=== PATIENT | female | born 1945 | race Caucasian/White ===

== ENCOUNTER → 2016-10-14 | Outpatient (CLI) | payer MEDICARE, OTHER ==
[2016-07-23 18:30] VITALS: BP 183/88
[~2016-10-14] MED LIST: CELE100C PO; CITA10TA8 PO; LEVO25TA2 PO; LISI2.5T PO; NITR100C62 PO; ONDA4TAB10 SL; OXYC-323 PO; PANT20TA2 PO; PROM25SU32 RC
--- NOTE | 2016-10-14 13:19 | RAD ---
Bone Densitometry History: Postmenopausal screening, recent right shoulder fracture, breast cancer treated with chemotherapy, white female. Comparison: 12/20/2013. Findings: Bone Densitometry was performed with dual photon absorption of the lumbar spine from L1 through L3 (L4 body density was not included secondary to spinal fusion hardware) and proximal right femur. Lumbar Spine: Bone density is 1.017 g/cm2 for L1-L4. T-score is -1.3. Bone mineral density demonstrates 18.4% decrease from previous study. Right Femur: Bone density is 0.734 g/cm2. T-score is -2.2. Bone mineral density of the right femur demonstrates 7.3% decrease from previous study. Impression: Osteopenia of the lumbar spine and proximal right femur. World Health Organization definition of osteoporosis and osteopenia for women: normal equals T score at or above -1.0 standard deviations; osteopenia equals T score between -1.0 and -2.5 standard deviations; osteoporosis equals T score at or below -2.5 standard deviations.
== END | disposition home or self-care (01) ==
LOC: DXRAD 12:45
PROVIDERS: ATTEND Physician Assistant Medical
DX: M85.88 Other specified disorders of bone density and structure, other site (principal); C50.919 Malignant neoplasm of unspecified site of unspecified female breast; M81.0 Age-related osteoporosis without current pathological fracture; Z92.21 Personal history of antineoplastic chemotherapy; T14.8 Other injury of unspecified body region
CPT/HCPCS: 77080

== ENCOUNTER → 2016-10-20 | Outpatient (CLI) | payer MEDICARE, OTHER ==
[2016-07-23 18:30] VITALS: BP 183/88
--- NOTE | 2016-10-20 16:24 | RAD ---
Pelvis with right hip, 2 views, 10/20/2016: History: Hip joint pain Comparison is made to a study from 02/18/2016. The bony structures are demineralized. Surgical pins have been placed at the left hip. There are fixation rods and screws in the spine at the lumbosacral junction with postlaminectomy change. No acute fracture or dislocation is identified. There is mild narrowing at both hip joints with mild marginal spurring, worse on the left. IMPRESSION: 1. Postsurgical change in the lumbar spine and at the left hip. 2. Mild degenerative change at both hips, left greater than right. 3. No acute bony abnormality is detected.
== END | disposition home or self-care (01) ==
LOC: DXRADRC 15:28
PROVIDERS: ATTEND Physician Assistant Medical
DX: M25.551 Pain in right hip (principal)
CPT/HCPCS: 73501

== ENCOUNTER → 2017-03-17 | Outpatient (CLI) | payer MEDICARE, OTHER ==
[2016-07-23 18:30] VITALS: BP 183/88
[~2017-03-17] MED LIST changes: -LEVO25TA2 PO; +LEVO25TA55 PO; -PANT20TA2 PO; +PANT20TA58 PO
--- NOTE | 2017-03-17 09:42 | RAD ---
Left foot, 3 views, 03/17/2017: History: Foot pain, fall, swelling There is extensive patchy bony demineralization. There is severe degenerative change at the talonavicular articulation. There are moderate degenerative changes at other scattered joints. There are mild deformities of the distal third through fifth metatarsals, probably due to old trauma. A visible fracture line with sclerotic margins at the fifth metatarsal head suggests a incompletely healed fracture. A nondisplaced recent fractures less likely. No definite acute fracture or dislocation is seen. IMPRESSION: 1. Severe bony demineralization. 2. Moderate scattered degenerative changes. 3. A nondisplaced fracture of the fifth metatarsal head is probably old. Clinical correlation with the site of the patient's current pain is suggested.
== END | disposition home or self-care (01) ==
LOC: DXRADRC 09:21
PROVIDERS: ATTEND Physician Assistant Medical
DX: S92.355A Nondisplaced fracture of fifth metatarsal bone, left foot, initial encounter for closed fracture (principal); M19.072 Primary osteoarthritis, left ankle and foot; W19.XXXA Unspecified fall, initial encounter; Y93.89 Activity, other specified; Y92.89 Other specified places as the place of occurrence of the external cause; Y99.8 Other external cause status
CPT/HCPCS: 73630

== ENCOUNTER → 2017-04-09 | Outpatient (CLI) | payer MEDICARE, OTHER ==
[2016-07-23 18:30] VITALS: BP 183/88
--- NOTE | 2017-04-09 16:45 | RAD ---
Examination: Ultrasound left lower extremity venous duplex History: History of left lower extremity pain Comparison: None available Technique: Grayscale, color Doppler 2-D, spectral waveform analysis of the left lower extremity venous system were performed Findings: The visualized common femoral vein, superficial femoral vein, popliteal vein demonstrate normal compression and augmentation of flow. The visualized calf veins are patent. Impression No evidence of deep venous thrombosis in the visualized left lower extremity venous system.
== END | disposition home or self-care (01) ==
LOC: US 14:50
PROVIDERS: ATTEND Physician Assistant Medical
DX: M79.605 Pain in left leg (principal)
CPT/HCPCS: 93971

== ENCOUNTER 2017-05-26 00:24 | Emergency (ER) | payer MEDICARE, OTHER ==
[~2017-05-26] VITALS: Ht 167.6 cm; Wt 88.5 kg
[2017-05-26 00:24] VITALS: BP 183/88
[2017-05-26] MEDS ORDERED: HYDROmorphone PF 1 MG/ML DISP.SYRIN IM ONE (01:15)
--- NOTE | 2017-05-26 01:17 | PHYS DOC ---
General Chief Complaint: UPPER EXTREMITY PAIN Stated Complaint: LEFT ARM PAIN Time Seen by MD: 00:34 Source: patient Exam Limitations: no limitations Problems: History of Present Illness Initial Comments Patient is a 71-year-old female complaining of left shoulder pain. Patient states that she's had no injury she cannot think of any new repetitive motions. She complains of anterolateral and posterior inferior left shoulder pain worse with movement better with rest. She comes in wearing a left shoulder immobilizer from prior surgery, she states she's been using her ice sleeve from prior postoperative course for right shoulder surgery. She took her home Percocet without any relief and has come for evaluation. I discussed the likelihood imaging would not be of benefit in the absence of any new trauma, patient states that when she broke her hip she had similar symptoms atraumatic hip fracture. She states that ever since she had treatment for cancer her bones have been very brittle. Imaging and Dilaudid IM ordered. Patient's vital signs are stable she is little hypertensive physiologic response to pain. Onset: this morning Severity: severe Pain/Injury Location: left shoulder Method of Injury: unknown Modifying Factors: improves with cold therapy, worse with jarring, worse with movement, improves with rest Allergies: Coded Allergies: Penicillins (Verified Allergy, Severe, 08/01/15) Past Medical History Medical History: other Surgical History: noncontributory Social History Smoker: non-smoker Alcohol: none Drugs: none Review of Systems Constitutional: denies chills, denies diaphoresis, denies fever, denies malaise Respiratory: denies cough, denies shortness of breath Cardiovascular: denies chest pain, denies palpitations Gastrointestinal: denies nausea, denies vomiting Musculoskeletal: see HPI Psychiatric/Neurological: denies numbness, denies paresthesia, denies tingling , denies weakness Physical Exam General Appearance: no apparent distress HEENT: PERRL/EOMI, normal ENT inspection Neck: non-tender, supple Cardiovascular/Respiratory: normal peripheral pulses, no respiratory distress Shoulder: pain, soft tissue tenderness (subacromial bursa tenderness, positive impingement, SITS intact no bony tenderness or instability. No swelling ecchymosis) Neurologic/Tendon: normal sensation, normal motor functions, normal tendon functions, responds to pain Psychiatric: alert, oriented x 3 Skin: normal color, warm/dry Orders, Labs, Meds Left shoulder: No fractures or dislocations noted, there are degenerative changes at the acromioclavicular joint. Interpreted by Dr. Barrett. I discussed findings with the patient. I discussed signs and symptoms to monitor and indications for urgent return to the department. I discussed icing and using a sling and close follow-up with patient's primary care provider Lise Kruse. Will give Dilaudid 1 mg intramuscularly tonight for severe breakthrough pain, patient will follow-up with her doctor in 1-2 days for recheck. Patient's questions were answered to her satisfaction and she expressed agreement and understanding with the treatment plan Departure Time of Disposition: 01:15 Disposition: 01 HOME, SELF-CARE Diagnosis: impingement syndrome left shoulder, subacromial bu Condition: GOOD Patient Instructions: Impingement Syndrome, Rotator Cuff, Bursitis with Rehab- [facility] - Routine Care for Injuries, [id number] Additional Instructions: No driving or operating machinery after taking sedative medications. ANJU, see handout. Continue to use your postoperative ice shoulder sleeve. Use sling as needed for symptom control. Continue home medications for discomfort. Follow-up with Lise Kruse this week for recheck and further evaluation and treatment as outpatient. Return to ED with new or changing symptoms. HARRIS BARRETT DO May 26, 2017 01:17
--- NOTE | 2017-05-26 07:10 | RAD ---
Left shoulder, 3 views, 05/26/2017: History: Pain There are moderate degenerative changes at the glenohumeral articulation with subchondral cyst formation, sclerosis and spurring. There are moderate degenerative changes at the AC joint. No acute fracture or dislocation is identified. Surgical clips are projected over the left axillary region in the left hilum. Linear parenchymal scars are present in the left base. IMPRESSION: 1. Moderate degenerative change. 2. No acute bony abnormality is detected.
== END 2017-05-26 01:25 | disposition home or self-care (01) ==
LOC: ER 00:24
DX: M75.42 Impingement syndrome of left shoulder (principal); Z98.890 Other specified postprocedural states; Z88.0 Allergy status to penicillin
CPT/HCPCS: 73030; 96372; 99284; J1170

== ENCOUNTER → 2017-06-10 | Outpatient (CLI) | payer MEDICARE, OTHER ==
[2017-05-26 00:24] VITALS: BP 183/88
--- NOTE | 2017-06-10 16:43 | RAD ---
FOOT LEFT 3V Clinical Indication: LEFT FOOT PAIN Comparison: Left foot radiographs dated 03/17/2017 Findings: Bony healing as evidenced by bony bridging and sclerosis of the second through fifth metatarsal head fractures. No new fracture or malalignment. Calcaneal enthesophyte. Advanced mid foot arthrosis. Suggestion of diffuse osteopenia. No significant soft tissue abnormality. No radiopaque foreign body. IMPRESSION: Healing second through fifth metatarsal head fractures as evidenced by bony bridging and sclerosis.
== END | disposition home or self-care (01) ==
LOC: DXRAD 12:06
PROVIDERS: ATTEND Physician Assistant Medical
DX: M19.072 Primary osteoarthritis, left ankle and foot (principal); M77.32 Calcaneal spur, left foot; S92.322D Displaced fracture of second metatarsal bone, left foot, subsequent encounter for fracture with routine healing; S92.332D Displaced fracture of third metatarsal bone, left foot, subsequent encounter for fracture with routine healing; S92.342D Displaced fracture of fourth metatarsal bone, left foot, subsequent encounter for fracture with routine healing; S92.352D Displaced fracture of fifth metatarsal bone, left foot, subsequent encounter for fracture with routine healing; X58.XXXD Exposure to other specified factors, subsequent encounter
CPT/HCPCS: 73630

== ENCOUNTER → 2017-07-17 | Outpatient (CLI) | payer MEDICARE, OTHER ==
--- NOTE | 2017-07-17 15:02 | RAD ---
INDICATION: LEFT FOOT PAIN COMPARISON: 06/10/2017 IMPRESSION: Left foot: 3 views obtained. Repeat demonstration of callus formation at the second through fifth distal metatarsals which could be secondary to healing fractures in the region. There are some degenerative changes. This is most severe in the midfoot including at the talonavicular joint. Mild sclerosis at the cuboid as well. If there is pain in the region and is possible that this is secondary to an additional fracture site although no pain this could be a chronic finding. Plantar calcaneal spur.
== END | disposition home or self-care (01) ==
LOC: PMG 14:18
PROVIDERS: ATTEND Physician Assistant Medical
DX: M19.072 Primary osteoarthritis, left ankle and foot (principal); M77.32 Calcaneal spur, left foot; S92.355D Nondisplaced fracture of fifth metatarsal bone, left foot, subsequent encounter for fracture with routine healing; X58.XXXD Exposure to other specified factors, subsequent encounter
CPT/HCPCS: 73630

== ENCOUNTER 2017-10-28 10:12 | Emergency (ER) | payer MEDICARE, OTHER ==
[~2017-10-28] VITALS: Ht 167.6 cm; Wt 90.7 kg
--- NOTE | 2017-10-28 11:05 | RAD ---
CHEST PA LATERAL History: FALL LAST NIGHT Comparison: June 30, 2016 Findings: 2 views of the chest are submitted. There is again some linear opacity left lung base likely due to fibrotic change is present previously. Pericardial cardiac silhouette is stable, upper limits of normal. There is no pneumothorax, significant pleural fluid, lobar consolidation. There is some linear likely atelectasis right lung base. There are clips in the axillary regions bilaterally. Impression: 1. There is some atelectasis right lung base, fibrotic change left lung base. Electronically signed by: Tuan Beckman MD (10/28/2017 11:01 AM) [id number]
--- NOTE | 2017-10-28 11:07 | RAD ---
SHOULDER 2+V LEFT History: fall last night Comparison: None. Findings: 3 views of the left shoulder are submitted. No acute fracture or dislocation is identified of the left shoulder by radiographs. There is believed to be left lateral second rib fracture. There are left axillary clips. Impression: 1. No acute osseous abnormality is identified of the left shoulder by radiographs. There is likely left lateral second rib fracture Electronically signed by: Tuan Beckman MD (10/28/2017 11:04 AM) [id number]
--- NOTE | 2017-10-28 11:20 | RAD ---
CT HEAD WO CONTRAST Indication: FALL LAST NIGHT Exposure: One or more of the following individualized dose reduction techniques were utilized for this examination: 1. Automated exposure control 2. Adjustment of the mA and/or kV according to patient size 3. Use of iterative reconstruction technique. Comparison: June 30, 2016 Contrast: None There is mild artifact due to motion. No acute intracranial hemorrhage. No extra-axial fluid collection. No mass effect or midline shift. Mild intracranial arterial vascular calcification. Partially included sinuses demonstrate mild mucosal thickening or polyp in the left posterior ethmoid air cell. Orbits appear unremarkable. No evidence of acute depressed skull fracture. IMPRESSION: No evidence of acute intracranial hemorrhage or mass effect. Electronically signed by: Sam Vasquez MD (10/28/2017 11:17 AM) [facility]
[2017-10-28] MEDS ORDERED: oxyCODONE/APAP 10/325 1 TAB TABLET PO ONE (11:30)
--- NOTE | 2017-10-28 11:31 | RAD ---
CT THORACIC SPINE WO CONTRAST Indication: FALL LAST NIGHT Exposure: One or more of the following individualized dose reduction techniques were utilized for this examination: 1. Automated exposure control 2. Adjustment of the mA and/or kV according to patient size 3. Use of iterative reconstruction technique. Comparison: None are available. Contrast: None No evidence of acute fracture. No destructive bone lesion. Multilevel degenerative disease with marginal spurring. No significant subluxation. There appears to be partial ankylosis of several mid thoracic vertebrae. No high-grade central osseous spinal canal stenosis is seen. Limited visualization of the lungs demonstrate some linear opacities likely atelectasis and/or fibrosis. There is mild left hydronephrosis. Ill-defined density in the partially visualized fat of the left abdomen. This could represent an acute inflammatory process. Recommend further evaluation. IMPRESSION: 1. Partially visualized abnormal tissue in the left abdomen posteriorly. This is suspicious for an acute inflammatory process. Recommend CT abdomen and pelvis for further evaluation. 2. Left hydronephrosis and mild dilatation of the partially seen proximal left ureter. This could also be further evaluated with CT. 3. No evidence of acute fracture. 4. Prominent linear opacities in both lungs. Nonspecific but would most likely represent atelectasis and/or fibrosis. Electronically signed by: Sam Vasquez MD (10/28/2017 11:27 AM) [facility]
--- NOTE | 2017-10-28 11:38 | ED.ADGEN ---
Past History Past Medical History: Cancer, GERD, Hypertension, Hypothyroid, Renal Disease Past Surgical History: Cholecystectomy, Other Alcohol Use: None Drug Use: None Adult General Chief Complaint Chief Complaint Headache, back pain HPI HPI Patient is a 72-year-old female who presents with multiple pain complaints after having accidental fall last evening. Patient states she tripped on a throw rug fell backwards striking her head, left shoulder and upper back on the floor. Denies loss of consciousness. Reports persistent headaches AND muscle skeletal pain. Denies neck pain. Patient is not on anticoagulation therapy. No anterior chest wall, or extremity pain. No shortness of breath. No other acute symptoms.[] Review of Systems Review of Systems Review symptoms as per history of present illness. All other review symptoms are negative. All other systems were reviewed and found to be within normal limits, except as documented in this note. Current Medications Current Medications Current Medications Medications (Trade) Dose Ordered Sig/Natalee Start Time Stop Time Status Last Admin Dose Admin Fentanyl Citrate (Fentanyl 2ml Vial) 50 mcg 1X ONCE 10/28/17 13:00 10/28/17 13:01 DC 10/28/17 13:08 50 MCG Oxycodone/ Acetaminophen (Percocet 10/325) 1 tab 1X ONCE 10/28/17 11:30 10/28/17 11:31 DC 10/28/17 11:16 1 TAB Sodium Chloride 1,000 ml @ 1,000 mls/hr 1X ONCE 10/28/17 13:30 10/28/17 14:29 DC 10/28/17 13:43 1,000 MLS/HR Allergies Allergies Allergies Coded Allergies Type Severity Reaction Last Updated Verified Penicillins Allergy Severe 08/01/15 Yes Physical Exam Physical Exam Constitutional: Well developed, well nourished, no acute distress, non-toxic appearance. [] HENT: Normocephalic, atraumatic, bilateral external ears normal, oropharynx moist, no oral exudates, nose normal. [] Eyes: PERRLA, EOMI, conjunctiva normal, no discharge. [] Neck: Normal range of motion, no tenderness, supple, no stridor. [] Cardiovascular:Heart rate regular rhythm, no murmur [] Lungs & Thorax: Bilateral breath sounds clear to auscultation [] Abdomen: Bowel sounds normal, soft, no tenderness, no masses, no pulsatile masses. [] Skin: Warm, dry, no erythema, no rash. [] Back: diffuse upper back pain. No comitance.[] Extremities: Isolated left upper extremity shoulder pain, tenderness. No joint pain,. [] Neurologic: Alert and oriented X 3, normal motor function, normal sensory function, no focal deficits noted. [] Psychologic: Affect normal, judgement normal, mood normal. [] Current Patient Data Vital Signs Vital Signs Date Time Temp Pulse Resp B/P (MAP) Pulse Ox O2 Delivery O2 Flow Rate FiO2 10/28/17 14:48 76 18 132/76 (94) 98 Room Air 10/28/17 10:44 98.0 Lab Results Laboratory Tests Test 10/28/17 11:24 White Blood Count 5.5 x10^3/uL (4.0-11.0) Red Blood Count 4.20 x10^6/uL (3.50-5.40) Hemoglobin 11.8 g/dL (12.0-15.5) L Hematocrit 36.5 % (36.0-47.0) Mean Corpuscular Volume 87 fL (79-100) Mean Corpuscular Hemoglobin 28 pg (25-35) Mean Corpuscular Hemoglobin Concent 32 g/dL (31-37) Red Cell Distribution Width 14.6 % (11.5-14.5) H Platelet Count 196 x10^3/uL (140-400) Neutrophils (%) (Auto) 77 % (31-73) H Lymphocytes (%) (Auto) 12 % (24-48) L Monocytes (%) (Auto) 6 % (0-9) Eosinophils (%) (Auto) 4 % (0-3) H Basophils (%) (Auto) 0 % (0-3) Neutrophils # (Auto) 4.3 x10^3uL (1.8-7.7) Lymphocytes # (Auto) 0.7 x10^3/uL (1.0-4.8) L Monocytes # (Auto) 0.4 x10^3/uL (0.0-1.1) Eosinophils # (Auto) 0.2 x10^3/uL (0.0-0.7) Basophils # (Auto) 0.0 x10^3/uL (0.0-0.2) Sodium Level 138 mmol/L (136-145) Potassium Level 4.7 mmol/L (3.5-5.1) Chloride Level 105 mmol/L (98-107) Carbon Dioxide Level 24 mmol/L (21-32) Anion Gap 9 (6-14) Blood Urea Nitrogen 29 mg/dL (7-20) H Creatinine 2.1 mg/dL (0.6-1.0) H Estimated GFR (Cockcroft-Gault) 23.3 BUN/Creatinine Ratio 14 (6-20) Glucose Level 102 mg/dL (70-99) H Calcium Level 8.2 mg/dL (8.5-10.1) L Total Bilirubin 0.3 mg/dL (0.2-1.0) Aspartate Amino Transferase (AST) 22 U/L (15-37) Alanine Aminotransferase (ALT) 20 U/L (14-59) Alkaline Phosphatase 105 U/L (46-116) Total Protein 7.1 g/dL (6.4-8.2) Albumin 3.5 g/dL (3.4-5.0) Albumin/Globulin Ratio 1.0 (1.0-1.7) EKG EKG [] Radiology/Procedures Radiology/Procedures CT head/thoracic spine: Chest x-ray/ left shoulder: Course & Med Decision Making Course & Med Decision Making Pertinent Labs and Imaging studies reviewed. (See chart for details) [Accidental fall from tripping with headache and muscle skeletal pain. Imaging studies reviewed.possible left second rib fracture. No other acute findings. Multiple nonspecific are chronic findings present discussed with patient. noted to have worsening renal and sufficient. typical closed head injury instructions given. Patient instructed to follow-up with PCP and dipper operator in the next 1-2 weeks. Return precautions reviewed.] Final Impression Final Impression [1. Concussion 2. Left second rib fracture 3. Bronchiectasis 4. Chronic kidney insufficiency 5. Abnormal CT findings of chest abdomen and pelvis ] Problems: Dragon Disclaimer Dragon Disclaimer This electronic medical record was generated, in whole or in part, using a voice recognition dictation system. SMITH RINCON DO Oct 28, 2017 11:38
[2017-10-28 13:07] LABS: BASO % 0 % (0-3); EOS # 0.2 x10^3/uL (0.0-0.7); EOS % 4 % (0-3); HEMATOCRIT 36.5 % (36.0-47.0); HEMOGLOBIN 11.8 g/dL (12.0-15.5); LYMPH # 0.7 x10^3/uL (1.0-4.8); LYMPH % 12 % (24-48); MEAN CORPUSCULAR HEMOGLOBIN 28 pg (25-35); MEAN CORPUSCULAR HGB CONC 32 g/dL (31-37); MEAN CORPUSCULAR VOLUME 87 fL (79-100); MONO # 0.4 x10^3/uL (0.0-1.1); MONO % 6 % (0-9); NEUT # 4.3 x10^3uL (1.8-7.7); NEUT % 77 % (31-73); PLATELET COUNT 196 x10^3/uL (140-400); RED CELL DISTRIBUTION WIDTH 14.6 % (11.5-14.5); WHITE BLOOD COUNT 5.5 x10^3/uL (4.0-11.0)
[2017-10-28 13:15] LABS: ALBUMIN 3.5 g/dL (3.4-5.0); CALCIUM 8.2 mg/dL (8.5-10.1); CREATININE 2.1 mg/dL (0.6-1.0); GFR 23.3; POTASSIUM 4.7 mmol/L (3.5-5.1); TOTAL BILIRUBIN 0.3 mg/dL (0.2-1.0); TOTAL PROTEIN 7.1 g/dL (6.4-8.2)
[2017-10-28] MEDS ORDERED: IV NORMAL SALINE 1,000ML 1,000 ML IV ONE (13:30)
--- NOTE | 2017-10-28 14:27 | RAD ---
CT CHEST ABDOMEN PELVIS WO Indication: fell last night, chest and abdomen trauma, pain Technique: Noncontrast CT imaging was performed of the chest, abdomen, pelvis, multiplanar reconstruction images submitted. One or more of the following individualized dose reduction techniques were utilized for this examination: 1. Automated exposure control 2. Adjustment of the mA and/or kV according to patient size 3. Use of iterative reconstruction technique. Contrast: None Comparison: Limited images from CT abdomen pelvis May 27, 2009 although the entirety of that exam not available, no previous chest CT available CHEST: Findings: There is no pneumothorax, pleural or pericardial effusion, lobar consolidation. There is some linear reticular density left lower lobe with associated bronchiectasis and bronchial wall thickening also mild atelectasis or linear fibrotic change right lower lobe greater near base. Major airways are overall patent. Thoracic aortic caliber is within normal limits. No significantly enlarged nodes are identified of the chest. There is some aortic annular calcification. Thoracic vertebral body stature and AP alignment are maintained. There is mild gas distention of proximal esophagus. There may be some small thyroid nodules greater on the left. IMPRESSION: 1. No acute abnormality is identified. 2. There is some bronchiectasis associated with reticular likely fibrotic change left lower lobe, some associated bronchial wall thickening. Abdomen and pelvis: FINDINGS: Accurate evaluation of abdominal visceral organs is limited without intravenous contrast, no obvious focal abnormality of the liver, spleen, small pancreas. There has been cholecystectomy. Extrahepatic common bile duct is somewhat prominent 0.9 cm although sometimes can be normally seen after cholecystectomy. There is no hydronephrosis of either kidney, no perinephric fluid collection. 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 There is atherosclerotic calcification of the normal caliber abdominal aorta. There is no adrenal nodularity. There are postsurgical changes of the stomach. Accurate evaluation of bowel is limited without oral contrast. There is a bowel anastomotic site in the left abdomen at which there is more dilated caliber of the bowel. There is bladder wall thickening fairly diffusely more anteriorly. There is a small quantity of nonspecific dependent free fluid in the right pelvis. There is posterolateral fusion hardware L4-S1, tips of pedicle screws at S1 slight coursing anterior to the vertebral body on the right, also posterior decompression at these levels. There is grade 1 anterior spondylolisthesis L3-4, degenerative disc disease L3-4. There is likely at least mild to moderate narrowing of the left L3-4 neural foramen. There may be bulge at L3-4 although poorly evaluated on this exam, cannot exclude spinal stenosis at this level. There are 3 screws of the proximal left femur. IMPRESSION: 1. There is a small quantity of nonspecific free fluid dependent right pelvis. 2. There are postsurgical changes of the stomach, also more dilated bowel at site of anastomosis in the left abdomen of uncertain chronicity although other bowel not significantly dilated. 3. There is nonspecific anterior bladder wall thickening, cystitis or less likely mass not excluded by this exam. Electronically signed by: Tuan Beckman MD (10/28/2017 2:23 PM) [id number]
[2017-10-28 14:48] VITALS: BP 132/76
== END 2017-10-28 15:00 | disposition home or self-care (01) ==
LOC: ER 10:12
DX: S06.0X0A Concussion without loss of consciousness, initial encounter (principal); S22.32XA Fracture of one rib, left side, initial encounter for closed fracture; J47.9 Bronchiectasis, uncomplicated; I12.9 Hypertensive chronic kidney disease with stage 1 through stage 4 chronic kidney disease, or unspecified chronic kidney disease; N18.9 Chronic kidney disease, unspecified; R93.5 Abnormal findings on diagnostic imaging of other abdominal regions, including retroperitoneum; R93.1 Abnormal findings on diagnostic imaging of heart and coronary circulation; E03.9 Hypothyroidism, unspecified; K21.9 Gastro-esophageal reflux disease without esophagitis; Z88.0 Allergy status to penicillin; W18.09XA Striking against other object with subsequent fall, initial encounter; Y93.89 Activity, other specified; Y99.8 Other external cause status; Y92.89 Other specified places as the place of occurrence of the external cause
CPT/HCPCS: 36415; 70450; 71046; 71250; 72128; 73030; 74176; 80053; 85025; 96361; 96374; 99285; J3010; J7030

== ENCOUNTER → 2018-03-18 | Outpatient (CLI) | payer MEDICARE, OTHER ==
[~2018-03-18] MED LIST changes: +0.9 % SODIUM CHLORIDE 10 ML VIAL ONE; +IOHEXOL 300 MG/ML 50 ML VIAL. ONE; +LIDOCAINE 1% PF 30 ML VIAL. ONE; +methylPREDNISolone ACETATE 80 MG/ML VIAL. ONE
== END | disposition home or self-care (01) ==
LOC: SURG 14:15
PROVIDERS: ATTEND Anesthesiology Pain Medicine
DX: M51.16 Intervertebral disc disorders with radiculopathy, lumbar region (principal); M47.26 Other spondylosis with radiculopathy, lumbar region; Z88.0 Allergy status to penicillin; K21.9 Gastro-esophageal reflux disease without esophagitis; E03.9 Hypothyroidism, unspecified; M19.90 Unspecified osteoarthritis, unspecified site; Z90.10 Acquired absence of unspecified breast and nipple; Z98.890 Other specified postprocedural states; Z79.899 Other long term (current) drug therapy; Z72.89 Other problems related to lifestyle; Z98.84 Bariatric surgery status
CPT/HCPCS: 62323; J1040; J2001; Q9967

== ENCOUNTER → 2018-05-13 | Outpatient (CLI) | payer MEDICARE, OTHER ==
[~2018-05-13] MED LIST changes: +LIDOCAINE 1% PF 2 ML VIAL. ONE; -LIDOCAINE 1% PF 30 ML VIAL. ONE
== END | disposition home or self-care (01) ==
LOC: SURG 14:00
PROVIDERS: ATTEND Anesthesiology Pain Medicine
DX: M54.16 Radiculopathy, lumbar region (principal); J30.2 Other seasonal allergic rhinitis; I10 Essential (primary) hypertension; M19.90 Unspecified osteoarthritis, unspecified site; R51 Headache; Z79.82 Long term (current) use of aspirin; Z79.899 Other long term (current) drug therapy
CPT/HCPCS: 62323; J1040; Q9967

== ENCOUNTER 2018-11-14 09:10 | Inpatient (IN) | payer MEDICARE, OTHER ==
[~2018-11-14] VITALS: Ht 167.6 cm; Wt 101.3 kg
[2018-11-14] VITALS (8 sets, daily range): BP systolic 108–150; BP diastolic 50–74
[~2018-11-14 09:10] MED LIST changes: -0.9 % SODIUM CHLORIDE 10 ML VIAL ONE; -IOHEXOL 300 MG/ML 50 ML VIAL. ONE; -LIDOCAINE 1% PF 2 ML VIAL. ONE; -OXYC-323 PO; +OXYC1TAB15 PO; -methylPREDNISolone ACETATE 80 MG/ML VIAL. ONE
[2018-11-14] MEDS ORDERED: IV NORMAL SALINE 1,000ML 1,000 ML IV SCH (09:19)
[2018-11-14 09:39] LABS: BASO # 0.1 x10^3/uL (0.0-0.2); BASO % 1 % (0-3); EOS # 0.5 x10^3/uL (0.0-0.7); EOS % 8 % (0-3); HEMATOCRIT 28.3 % (36.0-47.0); LYMPH # 1.6 x10^3/uL (1.0-4.8); LYMPH % 24 % (24-48); MEAN CORPUSCULAR HEMOGLOBIN 28 pg (25-35); MEAN CORPUSCULAR HGB CONC 32 g/dL (31-37); MEAN CORPUSCULAR VOLUME 89 fL (79-100); MONO # 0.5 x10^3/uL (0.0-1.1); MONO % 8 % (0-9); NEUT # 4.1 x10^3uL (1.8-7.7); NEUT % 60 % (31-73); PLATELET COUNT 252 x10^3/uL (140-400); RED BLOOD COUNT 3.19 x10^6/uL (3.50-5.40); RED CELL DISTRIBUTION WIDTH 15.7 % (11.5-14.5); WHITE BLOOD COUNT 6.8 x10^3/uL (4.0-11.0)
--- NOTE | 2018-11-14 09:45 | RAD ---
EXAM: Chest, single view. HISTORY: Weakness. COMPARISON: 10/28/2017 FINDINGS: A frontal view of the chest obtained. There is suspected lingular and left lower lobe atelectasis or scarring. There is no consolidation, pleural effusion or pneumothorax. The heart is normal in size. There are bilateral axillary clips. IMPRESSION: Suspected lingular and left lower lobe atelectasis or scarring. Electronically signed by: Jazlyn Martinez MD (11/14/2018 9:42 AM) [facility]
[2018-11-14 09:59] LABS: CALCIUM 8.2 mg/dL (8.5-10.1); CREATININE 2.2 mg/dL (0.6-1.0); DIRECT BILIRUBIN 0.1 mg/dL (0.0-0.2); MAGNESIUM 2.1 mg/dL (1.8-2.4); POTASSIUM 4.9 mmol/L (3.5-5.1); TOTAL BILIRUBIN 0.3 mg/dL (0.2-1.0); TOTAL PROTEIN 6.5 g/dL (6.4-8.2)
--- NOTE | 2018-11-14 10:21 | PHYS DOC ---
Past History Past Medical History: Cancer, GERD, Hypertension, Hypothyroid, Renal Disease Past Surgical History: Cholecystectomy, Other Alcohol Use: None Drug Use: None Adult General Chief Complaint Chief Complaint: ALTERED MENTAL STATUS [facility] HPI Patient is a 73-year-old female who arrives via EMS with report of generalized weakness. EMS reports that patient had pushed her life alert bracelet and when they had arrived patient's oxygen level was noted to be low but patient also noted to be quite hypotensive. Medics indicate that patient's highest blood pressure they obtained was 60s over 30s. Upon arrival, patient denies any specific pain. Patient's only complaint is that she feels very weak. Review of Systems Review of Systems Constitutional: Denies fever or chills [] Respiratory: Denies cough or shortness of breath [] Cardiovascular: No additional information not addressed in HPI [] GI: Denies abdominal pain, nausea, vomiting or diarrhea [] Integument: Denies rash or skin lesions [] Neurologic: Denies headache, focal weakness or sensory changes [] All other systems were reviewed and found to be within normal limits, except as documented in this note. Current Medications Current Medications Current Medications Medications (Trade) Dose Ordered Sig/Natalee Start Time Stop Time Status Last Admin Dose Admin Sodium Chloride 1,000 ml @ 1,000 mls/hr Q1H 11/14/18 09:19 11/14/18 10:18 Allergies Allergies Allergies Coded Allergies Type Severity Reaction Last Updated Verified Penicillins Allergy Severe 08/01/15 Yes Physical Exam Physical Exam Constitutional: Well developed, well nourished, no acute distress, non-toxic appearance. [] HENT: Normocephalic, atraumatic, bilateral external ears normal, oropharynx moist, no oral exudates, nose normal. [] Eyes: PERRLA, EOMI, conjunctiva normal, no discharge. [] Neck: Normal range of motion, no tenderness, supple, no stridor. [] Cardiovascular: Regular rate and rhythm[] Lungs & Thorax: Bilateral breath sounds clear to auscultation [] Abdomen: Bowel sounds normal, soft, no tenderness. [] Skin: Warm, dry, no erythema, no rash. [] Extremities: No tenderness, no cyanosis, no clubbing, ROM intact. [] Neurologic: Alert and oriented X 3, no focal deficits noted. [] Current Patient Data Lab Results Laboratory Tests Test 11/14/18 09:15 White Blood Count 6.8 x10^3/uL (4.0-11.0) Red Blood Count 3.19 x10^6/uL (3.50-5.40) L Hemoglobin 9.0 g/dL (12.0-15.5) L Hematocrit 28.3 % (36.0-47.0) L Mean Corpuscular Volume 89 fL (79-100) Mean Corpuscular Hemoglobin 28 pg (25-35) Mean Corpuscular Hemoglobin Concent 32 g/dL (31-37) Red Cell Distribution Width 15.7 % (11.5-14.5) H Platelet Count 252 x10^3/uL (140-400) Neutrophils (%) (Auto) 60 % (31-73) Lymphocytes (%) (Auto) 24 % (24-48) Monocytes (%) (Auto) 8 % (0-9) Eosinophils (%) (Auto) 8 % (0-3) H Basophils (%) (Auto) 1 % (0-3) Neutrophils # (Auto) 4.1 x10^3uL (1.8-7.7) Lymphocytes # (Auto) 1.6 x10^3/uL (1.0-4.8) Monocytes # (Auto) 0.5 x10^3/uL (0.0-1.1) Eosinophils # (Auto) 0.5 x10^3/uL (0.0-0.7) Basophils # (Auto) 0.1 x10^3/uL (0.0-0.2) Sodium Level 139 mmol/L (136-145) Potassium Level 4.9 mmol/L (3.5-5.1) Chloride Level 103 mmol/L (98-107) Carbon Dioxide Level 27 mmol/L (21-32) Anion Gap 9 (6-14) Blood Urea Nitrogen 19 mg/dL (7-20) Creatinine 2.2 mg/dL (0.6-1.0) H Estimated GFR (Cockcroft-Gault) 22.0 Glucose Level 87 mg/dL (70-99) Lactic Acid Level 1.6 mmol/L (0.4-2.0) Calcium Level 8.2 mg/dL (8.5-10.1) L Magnesium Level 2.1 mg/dL (1.8-2.4) Total Bilirubin 0.3 mg/dL (0.2-1.0) Direct Bilirubin 0.1 mg/dL (0.0-0.2) Aspartate Amino Transferase (AST) 16 U/L (15-37) Alanine Aminotransferase (ALT) 10 U/L (14-59) L Alkaline Phosphatase 159 U/L (46-116) H Troponin I Quantitative < 0.017 ng/mL (0-0.055) Total Protein 6.5 g/dL (6.4-8.2) Albumin 3.0 g/dL (3.4-5.0) L EKG EKG [] Radiology/Procedures Radiology/Procedures [] Impressions: PROCEDURE: PORTABLE CHEST 1V EXAM: Chest, single view. HISTORY: Weakness. COMPARISON: 10/28/2017 FINDINGS: A frontal view of the chest obtained. There is suspected lingular and left lower lobe atelectasis or scarring. There is no consolidation, pleural effusion or pneumothorax. The heart is normal in size. There are bilateral axillary clips. IMPRESSION: Suspected lingular and left lower lobe atelectasis or scarring. Electronically signed by: Jazlyn Martinez MD (11/14/2018 9:42 AM) [facility] Course & Med Decision Making Course & Med Decision Making Pertinent Labs and Imaging studies reviewed. (See chart for details) [] Dragon Disclaimer Dragon Disclaimer This electronic medical record was generated, in whole or in part, using a voice recognition dictation system. Departure Departure: Impression: Primary Impression: Hypotension Additional Impression: Generalized weakness Disposition: 09 ADMITTED INPATIENT Admitting Physician: Gunnar Kwon Condition: IMPROVED Referrals: SANTO CAN (PCP) Problem Qualifiers Primary Impression: Hypotension Hypotension type: unspecified hypotension type Qualified Codes: I95.9 - Hypotension, unspecified ONIEL CASTELAN Jr. DO November 14, 2018 10:21
[2018-11-14] MEDS ORDERED: IV NORMAL SALINE 1,000ML 1,000 ML IV ONE ×2 (10:45→11:15)
[2018-11-14] MEDS ORDERED: ONDANSETRON PF 4 MG/2 ML VIAL. IV PRN (12:45)
[2018-11-14] MEDS: IV NORMAL SALINE 1,000ML 1,000 ML IV SCH ×2 (14:51→20:36)
[2018-11-14] MEDS: oxyCODONE/APAP 10/325 1 TAB TABLET PO PRN (15:13)
--- NOTE | 2018-11-14 17:53 | RAD ---
EXAM: CT HEAD WITHOUT CONTRAST. HISTORY: Headache, dizziness, altered mental status. TECHNIQUE: Computed tomography of the head was performed without intravenous contrast. COMPARISON: 10/28/2017. FINDINGS: There is no intracranial hemorrhage. Monae-white differentiation is preserved. The ventricles are normal in size and position. Small foci of fat density is noted nondependently and both lateral ventricular frontal horns. There is an mucus retention cyst in the left posterior ethmoid air cells. There are changes of bilateral cataract surgery. The temporal bones are unremarkable. The calvarium reveals no suspicious lesions. IMPRESSION: 1. New small foci of fat dependently within the lateral ventricles may introduction of fat into the CSF from prior spinal surgery or other instrumentation. Otherwise, ruptured dermoid/epidermoid somewhere along the neuraxis could produce this appearance and chronic headaches. Correlate with other clinical data. *One or more of the following individualized dose reduction techniques were utilized for this examination: 1. Automated exposure control. 2. Adjustment of the mA and/or kV according to patient size. 3. Use of iterative reconstruction technique. Electronically signed by: Evan Sanderson MD (11/14/2018 5:50 PM) [facility]
[2018-11-14] MEDS ORDERED: PROMETHAZINE 25 MG SUPP.RECT. RC PRN (19:30)
[2018-11-14] MEDS ORDERED: oxyCODONE/APAP 10/325 1 TAB TABLET PO ONE (20:00)
[2018-11-14] MEDS ORDERED: ANTI-COAG MONITOR BY PHARMACY. MC PRN (20:15)
[2018-11-14] MEDS ORDERED: PROCHLORPERAZINE 5 MG TABLET. PO PRN (20:45)
[2018-11-14] MEDS ORDERED: tiZANidine 4 MG TABLET. PO PRN (20:45)
[2018-11-14] MEDS ORDERED: MONT10TA9 PO (20:49)
[2018-11-14] MEDS ORDERED: ASPI325T8 PO (20:49)
[2018-11-14] MEDS ORDERED: ANAS1TAB47 PO (20:49)
[2018-11-14] MEDS ORDERED: GABA600T PO (20:49)
[2018-11-14] MEDS ORDERED: CYCL1DRO EACHEYE (20:49)
[2018-11-14] MEDS ORDERED: LEVO5TAB29 PO (20:49)
[2018-11-14] MEDS ORDERED: DULO60CA6 PO (20:49)
[2018-11-14] MEDS ORDERED: ZOLP5TAB PO (20:49)
[2018-11-14] MEDS ORDERED: TIZA4TAB8 PO (20:49)
[2018-11-14] MEDS ORDERED: PROC10TA57 PO (20:49)
[2018-11-14] MEDS ORDERED: ALEN70TA3 PO (20:49)
[2018-11-14] MEDS: cycloSPORINE 0.05% OPTH 1 DROP DROPERETTE OU SCH (21:00)
[2018-11-14] MEDS ORDERED: NITROFURANTOIN MONOHYD/M-CRYST 100 MG CAPSULE. PO SCH (21:00)
[2018-11-14] MEDS: PANTOPRAZOLE 40 MG TABLET. PO SCH ×2 (21:22→21:31)
[2018-11-14] MEDS: GABAPENTIN 300 MG CAPSULE. PO SCH (21:31)
[2018-11-14] MEDS: ZOLPIDEM 5 MG TABLET. PO PRN (21:31)
[2018-11-14] MEDS: ENOXAPARIN ** NOTE DOSE ** SYRINGE SQ SCH (21:32)
--- NOTE | 2018-11-14 21:32 | HP ---
ADMIT DATE: 11/14/2018 HISTORY OF PRESENT ILLNESS: A 73-year-old female apparently was in her usual state of health until the morning of admission when apparently she was not feeling very well and apparently hit her life alert bracelet. The patient was noted by EMS to have a low blood pressure approximately in the 60s and possibly 70s over 30. The patient denied any chest pain, shortness of breath. Denies other abnormality. She is fairly weak. With some fluids, the patient's blood pressure came up, however she was admitted because of this acute change in her blood pressure as well as her acute change in altered mental status. PAST MEDICAL HISTORY: Includes the following in terms of previous history of cancer, GERD, hypertension, hypothyroidism, renal disease, cholecystectomy, history of concussion, rib fracture, bronchiectasis, previous abdominal surgery, obesity. Here back in October of this year, the patient had recurrent surgery on her back, removal of hardware and fusion of the lumbar spine. History of hydronephrosis. The patient had no problems after surgery and has been released by that. Abnormal mammogram. HOME MEDICATIONS: Promethazine, Macrodantin 100 mg b.i.d., lisinopril 2.5 mg daily, Celebrex 100 mg, oxycodone 5/325 for migraine, Celexa 10 mg a day, Zofran ODT, Protonix, Synthroid 25 mcg daily. ALLERGIES: PENICILLIN. SOCIAL HISTORY: No smoking, alcohol, or drug use. 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 The patient is a full code. PHYSICAL EXAMINATION: GENERAL: In any case, on exam, this is a very pleasant female, presently in no apparent distress. VITAL SIGNS: Blood pressure 142/56, respiratory rate 15, pulse 60, afebrile, oxygen flow 4 liters at 97%. NEUROLOGIC: The patient is alert and oriented. Speech is fluent, spontaneous, appropriate. Cranial nerves 2-12 are grossly intact. LUNGS: Diminished, but clear throughout. CARDIOVASCULAR: Regular sinus rhythm, S1, S2, without murmur, rub, thrill, or extra heart sound. ABDOMEN: Protuberant, soft, nontender. EXTREMITIES: No clubbing, cyanosis, or edema. The patient is still having some lower back pain obviously from her previous surgery. Neurologically intact. DIAGNOSTIC DATA: The patient's head CT reveals new small foci of fat dependent within the lateral ventricle, introduction of fat into the CSF, otherwise ruptured dermoid, epidermoid somewhat along the neural axis could produce this appearance, chronic headaches. Chest x-ray shows atelectasis. IMPRESSION: Acute hypotension; anemia, hemoglobin 9 and 28; chronic kidney disease, stage 4; recent lumbar surgery with fusion; elevated D-dimer; 11-20 white cells in her urine; leukorrhea, culture pending; positive D-dimer, do V/Q scan to be on the safe side; abnormal CT scan of the head; anemia of unspecified etiology. The patient will be worked up and all these consults with Dr. Paula and do an echo to rule out any cardiovascular causing this acute hypotension and change in mental status. RADHA BUSBY MD DR: LISSETH/nts JOB#: [id number] / [id number]
[2018-11-15] VITALS (43 sets, daily range): BP systolic 53–155; BP diastolic 34–72
--- NOTE | 2018-11-15 00:49 | NUR ---
Pt's b/p started trending down around 2330, 70/30's, MAP in the 40-50's. NS rate turned from 125 ml/hr to 999, consult to cardiology called and called received back from Dr. Parsons. Dopamine to start at 5mcg, order to titrate to keep systolic above 100. Gtt initiated and will continue to monitor for status changes.
[2018-11-15] MEDS: oxyCODONE/APAP 5/325 1 TAB TABLET PO PRN ×4 (01:55→18:04)
[2018-11-15] MEDS: IV NORMAL SALINE 1,000ML 1,000 ML IV SCH ×3 (04:36→22:47)
[2018-11-15] MEDS: LEVOTHYROXINE 25 MCG TABLET. PO SCH (05:46)
[2018-11-15] MEDS: GABAPENTIN 300 MG CAPSULE. PO SCH ×2 (07:59→21:19)
[2018-11-15] MEDS: PANTOPRAZOLE 40 MG TABLET. PO SCH ×3 (08:00→21:20)
[2018-11-15] MEDS: MONTELUKAST 10 MG TABLET. PO SCH (08:00)
[2018-11-15 08:56] LABS: BILIRUBIN,URINE NEG (NEG); CLARITY,URINE CLOUDY; COLOR,URINE AMBER; GLUCOSE,URINE NEG (NEG); NITRITE,URINE POS (NEG); UROBILINOGEN,URINE 0.2 mg/dL (0.2 mg/dL)
[2018-11-15 08:57] LABS: BACTERIA,URINE MOD /HPF (0-FEW); SQUAMOUS EPITHELIAL CELL,UR FEW /LPF; WBC,URINE >40 /HPF (0-4)
--- NOTE | 2018-11-15 08:57 | PDOC2 ---
YRIS DOUGLAS APRN 11/15/18 0857: CONSULT Date of Admission DATE: 11/15/18 TIME: 08:56 Reason for Consult: hypotension Problem List Problems Medical Problems: (1) Generalized weakness Status: Acute (2) Hypotension Status: Acute History of Present Illness Ms Montoya is a 73-year-old female who presented to the ED via EMS with report of generalized weakness. She was admitted for evaluation and management and found to have a UTI. SHe has been hypotensive despite dopamine so consult called. She reports symptoms of UTI, frequency, urgency and dysuria for about 1 week. She began to feel significantly weak and lightheaded yesterday so pushed life alert bracelet. EMS noted her to be quite hypotensive on their arrival. Notes indicate that medics reported patient's highest blood pressure they obtained was 60s over 30s. On arrival to ED she complained only of weakness. She was placed on dopamine drip last pm and currently is maintaining mildly hypotensive blood pressure and sinus tachycardia in the 120s on max dose. She denies any chest pain or discomfort, dyspnea or congestive symptoms. She denies edema, palpitations or lightheadedness. She complain of being very weak, having a headache and difficulty concentrating. She keeps her eyes closed consistently. Past Medical History headaches, hypertension, breast cancer s./p bilateral mastectomy, hypothyroid, depression, anxiety, lymphoma, neuropathy, left hip fracture Past Surgical History hip fx repair Past Surgical History: Mastectomy Family History non contributory Social History non smoker, no illicit drugs,no significant ETOH Current Medications Current Medications Sodium Chloride 1,000 ml @ 1,000 mls/hr Q1H IV Last administered on 11/14/18at 10:42; Start 11/14/18 at 09:19; Stop 11/14/18 at 10:18; Status DC Sodium Chloride 1,000 ml @ 1,000 mls/hr 1X ONCE IV Last administered on 11/14/18at 11:00; Start 11/14/18 at 10:45; Stop 11/14/18 at 11:44; Status DC Sodium Chloride 1,000 ml @ 1,000 mls/hr 1X ONCE IV Last administered on 11/14/18at 11:25; Start 11/14/18 at 11:15; Stop 11/14/18 at 12:14; Status DC Ondansetron HCl (Zofran) 4 mg PRN Q4HRS PRN IV NAUSEA/VOMITING Last administered on 11/15/18at 01:20; Start 11/14/18 at 12:45; Stop 11/15/18 at 12:44 Sodium Chloride 1,000 ml @ 125 mls/hr Q8H IV Last administered on 11/14/18at 14:51; Start 11/14/18 at 12:36; Stop 11/15/18 at 12:35 Oxycodone/ Acetaminophen (Percocet 10/325) 1 tab PRN Q6HRS PRN PO PAIN Last administered on 11/14/18at 15:13; Start 11/14/18 at 14:45 Citalopram Hydrobromide (CeleXA) 10 mg DAILY PO ; Start 11/15/18 at 09:00 Oxycodone/ Acetaminophen (Percocet 5/325) 1 tab PRN TID PRN PO pain Last administered on 11/15/18at 08:11; Start 11/14/18 at 19:30 Promethazine HCl (Phenergan Supp) 25 mg PRN Q8HRS PRN RC NAUSEA; Start 11/14/18 at 19:30 Levothyroxine Sodium (Synthroid) 25 mcg DAILY06 PO Last administered on 11/15/18at 05:46; Start 11/15/18 at 06:00 Lisinopril (Prinivil) 2.5 mg DAILY PO ; Start 11/15/18 at 09:00; Stop 11/15/18 at 09:00; Status DC Nitrofurantoin Macrocrystals (Macrobid) 100 mg BID PO ; Start 11/14/18 at 21:00; Stop 11/14/18 at 21:00; Status DC Ondansetron HCl (Zofran Odt) 4 mg PRN Q8HRS PRN PO NAUSEA/VOMITING; Start 11/14/18 at 20:15 Enoxaparin Sodium (Lovenox 100mg Syringe) 100 mg QHS SQ Last administered on 11/14/18at 21:32; Start 11/14/18 at 21:00 Pantoprazole Sodium (Protonix) 40 mg BID PO Last administered on 11/14/18at 21:31; Start 11/14/18 at 21:00 Oxycodone/ Acetaminophen (Percocet 10/325) 1 tab 1X ONCE PO Last administered on 11/14/18at 20:23; Start 11/14/18 at 20:00; Stop 11/14/18 at 20:09; Status DC Info (Anti-Coagulation Monitoring By Pharmacy) 1 each PRN DAILY PRN MC SEE COMMENTS; Start 11/14/18 at 20:15; Status Cancel Cyclosporine (Restasis) 1 drop BID OU ; Start 11/14/18 at 21:00 Zolpidem Tartrate (Ambien) 5 mg PRN QHS PRN PO INSOMNIA, MAY REPEAT X1 Last administered on 11/14/18at 21:31; Start 11/14/18 at 20:45 Non-Formulary Medication (Alendronate Sodium (Fosamax)) 1 tab WEEKLY PO ; Start 11/21/18 at 09:00; Stop 11/21/18 at 09:00; Status DC Anastrozole (Arimidex) 1 mg DAILY PO ; Start 11/15/18 at 09:00 Duloxetine HCl (Cymbalta) 60 mg DAILY PO Last administered on 11/15/18at 08:00; Start 11/15/18 at 09:00 Gabapentin (Neurontin) 600 mg BID PO Last administered on 11/15/18at 07:59; Start 11/14/18 at 21:15 Montelukast Sodium (Singulair) 10 mg DAILY PO Last administered on 11/15/18at 08:00; Start 11/15/18 at 09:00 Pantoprazole Sodium (Protonix) 40 mg BIDBFRMEAL PO Last administered on 11/15/18at 08:00; Start 11/14/18 at 21:30; Stop 11/15/18 at 08:02; Status DC Prochlorperazine Maleate (Compazine) 10 mg PRN Q6HRS PRN PO NAUSEA Last administered on 11/14/18at 21:54; Start 11/14/18 at 20:45 Tizanidine HCl (Zanaflex) 4 mg PRN Q8HRS PRN PO MUSCLE SPASMS Last administered on 11/14/18at 21:31; Start 11/14/18 at 20:45 Dopamine HCl/ Dextrose 250 ml @ 7.45 mls/hr CONT PRN IV SEE I/O RECORD Last administered on 11/15/18at 00:45; Start 11/15/18 at 00:45 Acetaminophen (Tylenol) 500 mg PRN Q6HRS PRN PO PAIN / TEMP; Start 11/15/18 at 08:30 Phenylephrine HCl 20 mg/Sodium Chloride 252 ml @ 22.68 mls/ hr 1X ONCE IV ; Start 11/15/18 at 09:00; Stop 11/15/18 at 20:06 Active Scripts Active Macrobid 100 Mg Capsule (Nitrofurantoin Monohyd/M-Cryst) 100 Mg Capsule 1 Cap PO BID Phenergan (Promethazine HCl) 25 Mg Supp.rect 25 Mg RC PRN Q8HRS PRN Zofran Odt (Ondansetron) 4 Mg Tab.rapdis 1 Tab SL Q8HRS Percocet 5-325 Mg Tablet (Oxycodone Hcl/Acetaminophen) 1 Each Tablet 1-2 Tab PO Q4-6HRS Reported Xyzal (Levocetirizine Dihydrochloride) 5 Mg Tablet 1 Tab PO DAILY Aspirin 325 Mg Tablet 1 Tab PO DAILY Compazine (Prochlorperazine Maleate) 10 Mg Tablet 10 Mg PO PRN Q6HRS PRN Montelukast Sodium Tablet (Montelukast Sodium) 10 Mg Tablet 1 Tab PO DAILY Restasis (Cyclosporine) 1 Each Droperette 1 Drop EACHEYE BID Zanaflex (Tizanidine HCl) 4 Mg Tablet 4 Mg PO PRN Q8HRS PRN Ambien (Zolpidem Tartrate) 5 Mg Tablet 5 Mg PO PRN QHS PRN Neurontin (Gabapentin) 600 Mg Tablet 600 Mg PO BID Cymbalta (Duloxetine Hcl) 60 Mg Capsule.dr 1 Cap PO DAILY Arimidex (Anastrozole) 1 Mg Tablet 1 Tab PO DAILY Fosamax (Alendronate Sodium) 70 Mg Tablet 1 Tab PO WEEKLY Celexa (Citalopram Hydrobromide) 10 Mg Tablet 20 Mg PO DAILY Synthroid (Levothyroxine Sodium) 25 Mcg Tablet 75 Mcg PO DAILYAC Protonix (Pantoprazole Sodium) 20 Mg Tablet.dr 40 Mg PO BID Lisinopril 2.5 Mg Tablet 10 Mg PO DAILY Allergies: Coded Allergies: Penicillins (Verified Allergy, Severe, 08/01/15) Review of System as per HPI or unavailable cox to difficulty with memory and fatigue General: Alert, Cooperative, mild distress HEENT: Mucous membr. moist/pink Lungs: Other (decreased bases bilaterally) Heart: Normal S1, Normal S2 Abdomen: Normal bowel sounds, Soft, No tenderness Extremities: No cyanosis, No edema, Normal pulses Neuro: Normal speech Psych/Mental Status: Mood NL VITALS Vital Signs Date Time Temp Pulse Resp B/P (MAP) Pulse Ox O2 Delivery O2 Flow Rate FiO2 11/15/18 08:25 102.0 118 16 79/68 (72) 99 Simple Mask 2.0 Labs Laboratory Tests Test 11/14/18 09:15 11/14/18 16:50 11/14/18 20:20 White Blood Count 6.8 x10^3/uL (4.0-11.0) Red Blood Count 3.19 x10^6/uL (3.50-5.40) Hemoglobin 9.0 g/dL (12.0-15.5) Hematocrit 28.3 % (36.0-47.0) Mean Corpuscular Volume 89 fL (79-100) Mean Corpuscular Hemoglobin 28 pg (25-35) Mean Corpuscular Hemoglobin Concent 32 g/dL (31-37) Red Cell Distribution Width 15.7 % (11.5-14.5) Platelet Count 252 x10^3/uL (140-400) Neutrophils (%) (Auto) 60 % (31-73) Lymphocytes (%) (Auto) 24 % (24-48) Monocytes (%) (Auto) 8 % (0-9) Eosinophils (%) (Auto) 8 % (0-3) Basophils (%) (Auto) 1 % (0-3) Neutrophils # (Auto) 4.1 x10^3uL (1.8-7.7) Lymphocytes # (Auto) 1.6 x10^3/uL (1.0-4.8) Monocytes # (Auto) 0.5 x10^3/uL (0.0-1.1) Eosinophils # (Auto) 0.5 x10^3/uL (0.0-0.7) Basophils # (Auto) 0.1 x10^3/uL (0.0-0.2) Sodium Level 139 mmol/L (136-145) Potassium Level 4.9 mmol/L (3.5-5.1) Chloride Level 103 mmol/L (98-107) Carbon Dioxide Level 27 mmol/L (21-32) Anion Gap 9 (6-14) Blood Urea Nitrogen 19 mg/dL (7-20) Creatinine 2.2 mg/dL (0.6-1.0) Estimated GFR (Cockcroft-Gault) 22.0 Glucose Level 87 mg/dL (70-99) Lactic Acid Level 1.6 mmol/L (0.4-2.0) 1.0 mmol/L (0.4-2.0) Calcium Level 8.2 mg/dL (8.5-10.1) Magnesium Level 2.1 mg/dL (1.8-2.4) Total Bilirubin 0.3 mg/dL (0.2-1.0) Direct Bilirubin 0.1 mg/dL (0.0-0.2) Aspartate Amino Transf (AST/SGOT) 16 U/L (15-37) Alanine Aminotransferase (ALT/SGPT) 10 U/L (14-59) Alkaline Phosphatase 159 U/L (46-116) Troponin I Quantitative < 0.017 ng/mL (0-0.055) Total Protein 6.5 g/dL (6.4-8.2) Albumin 3.0 g/dL (3.4-5.0) D-Dimer (Bre) 3.86 mg/L (0.00-0.50) Images CXR - IMPRESSION: Suspected lingular and left lower lobe atelectasis or scarring. Assessment/Plan 1. urosepsis - requiring pressors. mgmt per PCP 2. hypotension secondary to #1 - add neosynephrine, continue supportive care. await echo. AXEL DAWKINS MD 11/15/18 2204: CONSULT Assessment/Plan Pt. seen and examined. Agree with above [employer] note. No acute cardiac issues. Supportive care for UTI. YRIS DOUGLAS [employer] November 15, 2018 08:57 AXEL DAWKINS MD November 15, 2018 22:04
[2018-11-15] MEDS: cycloSPORINE 0.05% OPTH 1 DROP DROPERETTE OU SCH ×2 (09:00→21:19)
[2018-11-15] MEDS ORDERED: PHENYLEPHRINE INJ 20 MG in IV NORMAL SALINE 250ML 250 ML IV ONE (09:00)
[2018-11-15] MEDS: ANASTROZOLE 1 MG TABLET PO SCH (09:00)
[2018-11-15] MEDS ORDERED: LISINOPRIL 2.5 MG TABLET PO SCH (09:00)
[2018-11-15] MEDS: CITALOPRAM 10 MG TABLET. PO SCH (09:00)
[2018-11-15 09:11] LABS: BASO # 0.1 x10^3/uL (0.0-0.2); BASO % 1 % (0-3); EOS # 0.5 x10^3/uL (0.0-0.7); EOS % 4 % (0-3); HEMATOCRIT 29.2 % (36.0-47.0); HEMOGLOBIN 9.3 g/dL (12.0-15.5); LYMPH # 0.6 x10^3/uL (1.0-4.8); LYMPH % 5 % (24-48); MEAN CORPUSCULAR HEMOGLOBIN 28 pg (25-35); MEAN CORPUSCULAR HGB CONC 32 g/dL (31-37); MEAN CORPUSCULAR VOLUME 88 fL (79-100); MONO # 1.4 x10^3/uL (0.0-1.1); MONO % 11 % (0-9); NEUT # 10.6 x10^3uL (1.8-7.7); NEUT % 81 % (31-73); PLATELET COUNT 267 x10^3/uL (140-400); RED BLOOD COUNT 3.33 x10^6/uL (3.50-5.40); RED CELL DISTRIBUTION WIDTH 15.2 % (11.5-14.5); WHITE BLOOD COUNT 13.1 x10^3/uL (4.0-11.0)
[2018-11-15 09:29] LABS: CALCIUM 8.4 mg/dL (8.5-10.1); CREATININE 1.7 mg/dL (0.6-1.0); GFR 29.6; POTASSIUM 5.2 mmol/L (3.5-5.1)
[2018-11-15] MEDS: VANCOMYCIN PER PHARMACY MC PRN (09:43)
--- NOTE | 2018-11-15 09:44 | NUR ---
Pharmacy Vancomycin Dosing Note S:Consulted to monitor and dose vancomycin started 11/15/18. O:ANA MARÍA WELDON is a 73 year old F with Urosepsis Height: 5 feet, 6 inches Weight: 102.385759 kg [place] Body Weight: 59.30 Adjusted Body Weight: 76.66 Dosing Weight: Actual Other Antibiotics: CEFEPIME LABS: Last BUN: 19 Last Creatinine: 2.2 Creatinine Clearance: 28.4 Last WBC: 13.1 Vancomycin Dosing: Loading Dose: 2000 mg x1 Dosing Weight: Actual Target Trough: 15-20 A: Initial dosing is based on height, actual weight, renal function and indication. P: 1. Give Vancomycin 2000mg loading dose initially, then Vancomycin 1500 mg IV q24h. 2. Follow up Trough level on 11/17/18 at 0930. 3. Pharmacy will continue to monitor, follow and adjust therapy as needed. GENEVA GRANT Pau 11/15/18 [id number]
[2018-11-15] MEDS ORDERED: VANCOMYCIN 2 GM in IV NORMAL SALINE 500ML 500 ML IV ONE (10:00)
[2018-11-15] MEDS: ACETAMINOPHEN 500 MG TABLET PO PRN ×2 (10:01→16:22)
[2018-11-15 10:03] LABS: % EOS 3 % (0-5); % LYMPHS 7 % (24-48); % MONOS 5 % (0-10); % SEGS 85 % (35-66)
[2018-11-15 10:04] LABS: PLT ESTIMATE ADEQUATE (ADEQUATE)
[2018-11-15 10:05] LABS: POLYCHROMASIA PRESENT
--- NOTE | 2018-11-15 11:00 | NUR ---
Pt febile this am with temp of 102 oral. Pt feeling dizzy and chilling. Pt bp dropped to 70's on dopamine and HR of 120's. UA micro never resulted unsure of why it was canceled. NEW UA sent to lab per judy at 8am. 2nd iv placed in RUE bacilic using US with accucath 20g. PT tolerated well. Fluids restarted, Dopamine titrated down and LUPE-synephrine titrated up per protocol. Once dopamine titrated down and LUPE at a stable rate per BP, HR came down nicely to 90's. HR is now in 80's. See vitals. Vancomycin and cefepime ordered once positive UA identified. Fever came down with tylenol and pt started to feel better. 20g in Left wrist infiltrated and hand swollen. Rings removed using lubricating jelly and sent home with daughter. 2 silver in color rings. Picc ordered due to poor access and Antibiotic orders. Alfonso CUELLO
[2018-11-15] MEDS: CEFEPIME HCL 2 GM in IV NORMAL SALINE 100ML 100 ML IV SCH ×2 (12:08→23:26)
--- NOTE | 2018-11-15 14:01 | EKG ---
[address] [address] Test Date: 2018-11-15 Test Time: 13:18:15 Pat Name: ANA MARÍA WELDON Department: Room: ICU03 1 Gender: F [employer] Executive: : 1945 Requested By: RADHA BUSBY Order Number: [id number] Reading MD: Sj Munoz MD Measurements Intervals [place] Rate: 96 P: 90 TN: 144 QRS: 21 QRSD: 104 T: 3 QT: 336 QTc: 425 Interpretive Statements SINUS RHYTHM RBBB Electronically Signed On 12-07-2018 11:46:19 CDT by Sj Munoz MD
--- NOTE | 2018-11-15 16:04 | CARD ---
MR#: [id number] Date of Study: 11/15/2018 Ordering Physician: RADHA BUSBY, Referring Physician: EMI VALLEJO Tech: Sulma Gonzalez MITCH APPROVED REPORT EXAM: Two-dimensional and M-mode echocardiogram with Doppler and color Doppler. Other Information Quality : AverageHR: 86bpm Rhythm : NSR INDICATION Hypotension 2D DIMENSIONS RVDd2.8 (2.9-3.5cm)Left Atrium(2D)4.4 (1.6-4.0cm) IVSd1.0 (0.7-1.1cm)Aortic Root(2D)2.5 (2.0-3.7cm) LVDd4.6 (3.9-5.9cm)LVOT Diameter1.8 (1.8-2.4cm) PWd1.1 (0.7-1.1cm)LVDs3.0 (2.5-4.0cm) FS (%) 34.8 %SV63.4 ml LVEF(%)64.1 (>50%) M-Mode DIMENSIONS Left Atrium(MM)4.43 (2.5-4.0cm)Aortic Root2.58 (2.2-3.7cm) Aortic Valve AoV Peak Ulysses.194.5cm/sAoV VTI36.7cm AO Peak GR.15.1mmHgLVOT Peak Ulysses.121.6cm/s LVOT VTI 24.00cmAO Mean GR.8mmHg CRYSTAL (VMAX)1.73oj4QZO (VTI)1.68cm2 Mitral Valve MV E Gydyyplc430.5cm/sMV E Peak Gr.8mmHg MV DECEL [id number] A Ftfwcida648.1cm/s MV E Mean Gr.5mmHgE/A Ratio0.9 MV A [id number] Pulmonary Valve PV Peak Xmimblhi569.1cm/sPV Peak Grad.10mmHg Tricuspid Valve TR P. Iglafewk444xd/sRAP DLZBPPLP0kkTm TR Peak Gr.28lpWbDFVG75paXr LEFT VENTRICLE The left ventricle is normal size. There is normal left ventricular wall thickness. The left ventricu lar systolic function is normal and the ejection fraction is within normal range. The Ejection Fracti on is 60-65%. There is normal LV segmental wall motion. Transmitral Doppler flow pattern is Grade II- pseudonormal filling dynamics. RIGHT VENTRICLE The right ventricle is normal size. There is normal right ventricular wall thickness. The right ventr icular systolic function is normal. ATRIA The left atrium is mildly dilated. The right atrium is mildly dilated. The interatrial septum is inta ct with no evidence for an atrial septal defect or patent foramen ovale as noted on 2-D or Doppler im aging. AORTIC VALVE The aortic valve is mildly calcified. The aortic valve is trileaflet. Restricted non-coronary cusp. D oppler and Color Flow revealed no significant aortic regurgitation. There is no significant aortic va lvular stenosis. MITRAL VALVE The mitral valve is mildly thickened. There is no evidence of mitral valve prolapse. There is trace m itral valve stenosis. Doppler and Color-flow revealed mild mitral regurgitation. TRICUSPID VALVE The tricuspid valve is normal in structure and function. Doppler and Color Flow revealed mild tricusp id regurgitation. The PA pressure was estimated at 44 mmHg. There is no tricuspid valve prolapse or v egetation. There is no tricuspid valve stenosis. PULMONIC VALVE The pulmonic valve is not well visualized. GREAT VESSELS The aortic root is normal in size. The ascending aorta is normal in size. The IVC is normal in size a nd collapses >50% with inspiration. PERICARDIAL EFFUSION There is no evidence of significant pericardial effusion. Critical Notification Critical Value: No <Conclusion> The left ventricular systolic function is normal and the ejection fraction is within normal range. Th e Ejection Fraction is 60-65%. There is normal LV segmental wall motion. Doppler and Color Flow revealed mild tricuspid regurgitation. The PA pressure was estimated at 44 mmH g. Signed by : Sj Munoz, Electronically Approved : 11/15/2018 16:03:56
[2018-11-15] MEDS: PHENYLEPHRINE INJ 20 MG in IV NORMAL SALINE 250ML 250 ML IV SCH (17:46)
--- NOTE | 2018-11-15 18:06 | NUR ---
Allergies and reactions y INR BUN Cr Platelets y Blood culture done blood culture results y Order Verified y Consent signed y Previous PICC placement y Past Medical/Surgical history and current diagnosis reviewed Patient Medical /Surgical History Related to PICC line placement Cancer Chemotherapy Mastectomy with lymph resection Right arm, Left arm resection with no lymph node removal Neck/Chest Surgery Past central line or venous access device placement Pulmonary Embolism (PE) Septicemia/Bacteremia Vascular/Surgery arms Special considerations for PICC line placement Anticoagulation therapy Compromised arm Infections PICC placement indication Caustic medication class drug usage, terminal worker antibiotic usage, Multiple/ Frequent blood draws Name of PICC Nurse Kelli Monae HARP REPAIRER CMSRN [facility]
--- NOTE | 2018-11-15 18:13 | NUR ---
Procedure: Following complete explanation of the PICC procedure including the indications, risks, and potential complications, informed consent was obtained. The possibility for infection was discussed along with signs, symptoms, and prevention. All the questions were answered. IV Device Protocol was used. Written and verbal patient education was provided. Hand hygiene performed. Standardized central line checklist was utilized. The patient was placed in the supine position, the arm was prepped with chlorhexidine and patient draped with maximum sterile barrier. 3 mL 1% lidocaine was infiltrated into the skin to provide local anesthesia. A thorough assessment of Left upper extremity completed. Using real-time ultrasound guidance and standardized micro puncture set, the bacilic vein was punctured and a peel away sheath was placed using the modified Seldinger technique. A tip location device was used to ensure adequate catheter placement. The catheter was secured using a securement device and an antimicrobial patch was applied directly on the insertion site followed by a transparent dressing. All ports withdraw blood and flush without resistance. Patient tolerated the procedure without apparent complication(s). Double Lumen Power PICC placement successful and uncomplicated. Placement verified by EKG tip confirmation system and/or chest x-ray. Complications: EKG looked great, but would not change to green. See ekg pic in chart. Xray ordered per protocol. Boby Monae RN BSN CMSRN [facility] 43cm inside 3 out. Addendum: 11/15/18 at 1924 by BOBY MONAE RN picc in proper position per xray. 43 cm inside 1 out final position. Alfonso CUELLO
[2018-11-15] MEDS ORDERED: IBUPROFEN 600 MG TABLET. PO PRN (18:15)
--- NOTE | 2018-11-15 18:44 | RAD ---
EXAM: Chest, single view. HISTORY: PICC placement. COMPARISON: 11/14/2018 FINDINGS: A frontal view of the chest is obtained. There is a left PICC with the tip in the superior vena cava. There is no pneumothorax. There is lingular and bilateral basilar atelectasis or scarring. There is superimposed suspected left lower lobe infiltrate. The heart is normal in size. There are bilateral axillary clips. IMPRESSION: 1. Suspected stable left lower lobe infiltrate and lingular and bilateral basilar atelectasis or scarring. 2. Left PICC with the tip in the superior vena cava. Electronically signed by: Jazlyn Martinez MD (11/15/2018 6:41 PM) [facility]
[2018-11-15] MEDS: ONDANSETRON ODT 4 MG TAB.RAPDIS PO PRN (19:51)
--- NOTE | 2018-11-15 20:18 | NUR ---
Pt c/o nausea Pt c/o nausea at approx 1945. Pt given Zofran rapid dissolve tab. Temp 99.1, all other VS WNL except HR, ST at mid-90s to 100. WCTM. D KHUSHBOO Mckeon Addendum: 11/15/18 at 2105 by HECTOR MCKEON RN RN When asked if pt has experienced nausea before, she stated "I often get nausea at night. I used to use a Fentanyl patch and noticed that I started to get this nausea at about the same time." At 2099, pt stated she no longer felt nauseous.
[2018-11-15] MEDS: ENOXAPARIN ** NOTE DOSE ** SYRINGE SQ SCH (21:18)
[2018-11-15] MEDS: NYSTATIN TOPICAL POWDER 15GM BOTTLE. TP SCH (21:58)
[2018-11-15] MEDS: oxyCODONE/APAP 10/325 1 TAB TABLET PO PRN (23:26)
[2018-11-15] MEDS: ZOLPIDEM 5 MG TABLET. PO PRN (23:26)
[2018-11-16] VITALS (27 sets, daily range): BP systolic 96–160; BP diastolic 48–74
[2018-11-16] MEDS: LEVOTHYROXINE 25 MCG TABLET. PO SCH (05:26)
[2018-11-16 06:13] LABS: HEMOGLOBIN 7.8 g/dL (12.0-15.5); RED BLOOD COUNT 2.72 x10^6/uL (3.50-5.40); RED CELL DISTRIBUTION WIDTH 15.3 % (11.5-14.5)
[2018-11-16] MEDS: PHENYLEPHRINE INJ 20 MG in IV NORMAL SALINE 250ML 250 ML IV SCH ×2 (06:18→16:29)
[2018-11-16 06:20] LABS: WHITE BLOOD COUNT 5.1 x10^3/uL (4.0-11.0)
--- NOTE | 2018-11-16 06:24 | PN ---
DATE: 11/15/2018 SUBJECTIVE: The patient was admitted yesterday with generalized weakness and apparently was found to be hypotensive. She was evaluated in the Emergency Room and according to her she remembers pushing the Life Alert, but did not remember anything before that. By the time she arrived to the Emergency Room, she was noted to be hypoxic and she was also quite hypotensive and apparently her highest blood pressure was 60/30. She denied, however, any chest pain. The only complaint was that she feels very weak. She was extensively investigated and was found to be dehydrated and probably also have acute on chronic kidney injury. Her D-dimer was high at 3.86; however, her urinalysis also showed that she has more than 40 wbc's and moderate amount of leukocyte esterase, and moderate amount of bacteria. The patient was admitted with generalized weakness, altered mental status, and hypotension and was treated with IV fluid, together with vancomycin and nitrofurantoin. When I saw her this afternoon, she was resting slightly propped up in bed, in no apparent distress. She is definitely more awake, alert. Denied any chest pain or shortness of breath. Denied any cough, phlegm, or hemoptysis. She continues to be on Levophed as well as IV fluids and her antibiotic was switched to vancomycin as well as cefepime. PHYSICAL EXAMINATION: GENERAL: When I examined her, she was pale, but no jaundice or cyanosis. No lymphadenopathy, no thyromegaly. No jugular venous distension. No limb edema. VITAL SIGNS: Her heart rate was 93, blood pressure was 102/52, her temperature was 99.4, respiratory rate was 16, and oxygen saturation was 98% on 2 liters of oxygen. HEAD, EYES, EARS, NOSE, AND THROAT: Showed she is normocephalic, atraumatic. NECK: Supple. HEART: Showed normal first and second heart sounds. No gallop, rub, or murmur. CHEST: Clear to auscultation. No crepitation or rhonchi. ABDOMEN: Distended, soft, nontender. No guarding or rigidity. No organomegaly. All hernial orifices intact. Bowel sounds normal. NEUROLOGIC: She is awake, alert, responding appropriately. All cranial nerves intact. She moves extremities without difficulty. Her intake over the last 24 hours was 5000, output was 3150. LABORATORY DATA: Her lab work as of this morning showed the white cell count was up to 13,100, hemoglobin 9.3, hematocrit 29.2, MCV 88, and platelet count 267,000. Her serum sodium was 139, her potassium was actually 5.2, chloride 106, bicarbonate 23, anion gap of 11, BUN 20, creatinine 1.7, estimated GFR was 29 mL per minute. Her glucose was 130, calcium was 8.4. Her serum iron, TIBC, and iron saturation were all low consistent with anemia of chronic disease. Her procalcitonin was only 0.1 and TSH was high at 7.361. ASSESSMENT: In summary, this is a 73-year-old female patient who was admitted with altered mental status and severe hypotension with a systolic pressure of only 60. She does have also acute versus acute on chronic kidney injury. Her D-dimer is elevated and the most likely explanation is either a combination of pulmonary embolism versus sepsis, although her procalcitonin was normal and white cell count also was normal. PLAN: My plan is to continue with IV fluid, continue with IV antibiotic. Continue with the Lovenox and hopefully her kidney function returns back to her baseline and we can do a CT angio tomorrow if a V/Q scan cannot be done today. EMI VALLEJO MD DR: DONALD/char JOB#: [id number] / [id number]
[2018-11-16 06:29] LABS: ALBUMIN 2.3 g/dL (3.4-5.0); ALBUMIN/GLOBULIN RATIO 0.7 (1.0-1.7); CALCIUM 7.9 mg/dL (8.5-10.1); CREATININE 1.4 mg/dL (0.6-1.0); GFR 37.1; TOTAL BILIRUBIN 0.2 mg/dL (0.2-1.0); TOTAL PROTEIN 5.8 g/dL (6.4-8.2)
--- NOTE | 2018-11-16 07:06 | NUR ---
CT Angio Radiology called at approx 0700 to ask if pt would be getting ordered V/Q scan or CT angiography with reduced dose and hydration protocol given improved kidney function. This RN called [facility] [place] for an answer, and he stated that if Radiology was comfortable with pt's kidney function, he would prefer the CT. This RN called Radiology with Glenn's response, cancelled ordered V/Q, and put in order for CT/A Chest per Glenn. Frank Mckeon RN
[2018-11-16] MEDS: IV NORMAL SALINE 1,000ML 1,000 ML IV SCH ×3 (07:15→23:15)
[2018-11-16] MEDS ORDERED: IOHEXOL 350 MG/ML 100 ML VIAL. IV ONE (07:45)
[2018-11-16] MEDS: cycloSPORINE 0.05% OPTH 1 DROP DROPERETTE OU SCH ×2 (08:14→20:03)
[2018-11-16] MEDS: ANASTROZOLE 1 MG TABLET PO SCH (08:15)
[2018-11-16] MEDS: GABAPENTIN 300 MG CAPSULE. PO SCH ×2 (08:16→20:03)
[2018-11-16] MEDS: CITALOPRAM 10 MG TABLET. PO SCH (08:16)
[2018-11-16] MEDS: MONTELUKAST 10 MG TABLET. PO SCH (08:17)
[2018-11-16] MEDS: PANTOPRAZOLE 40 MG TABLET. PO SCH ×2 (08:18→20:03)
[2018-11-16] MEDS: oxyCODONE/APAP 5/325 1 TAB TABLET PO PRN (08:19)
[2018-11-16] MEDS: NYSTATIN TOPICAL POWDER 15GM BOTTLE. TP SCH ×2 (08:21→20:02)
--- NOTE | 2018-11-16 08:35 | RAD ---
CTA of the chest with contrast, 11/16/2018: HISTORY: Elevated d-dimer, chest pain, shortness of breath Multidetector CT imaging was performed following an IV bolus injection of iodinated contrast material. Multiplanar reconstructions were produced including coronal and sagittal MIP images images. The main and lobar pulmonary arteries are well opacified with no filling defects evident. There are 2 tiny nonocclusive filling defects present in subsegmental pulmonary arteries in the right upper lobe as best seen on coronal images 48 and 49 of series #6. The basilar pulmonary arteries are incompletely opacified related to moderate bibasilar atelectasis/infiltrate. No other definite pulmonary arterial filling defects are seen. There is mild calcific plaquing of the thoracic aorta without evidence of aneurysm or dissection. No mediastinal or hilar adenopathy is seen. A left PICC extends into the superior vena cava. There is moderate atelectasis/infiltrate posteriorly in both lower lobes. There is a trace amount of pleural fluid on the left. There is minimal streaky atelectasis in the right middle lobe and inferior lingula. The upper lobes are otherwise clear. No interlobular septal thickening is seen. Moderate multilevel degenerative changes are present in the spine. IMPRESSION: 1. Two tiny subsegmental pulmonary arterial filling defects are present in the right upper lobe compatible with pulmonary emboli. 2. Incomplete opacification of the lower lobe pulmonary arteries bilaterally related to moderate bibasilar atelectasis/infiltrate. 3. Trace amount of left-sided pleural fluid. Note: The findings were called to the patient's nurse in the ICU at 8:32 AM on 11/16/2018. PQRS Compliance Statement: One or more of the following individualized dose reduction techniques were utilized for this examination: 1. Automated exposure control 2. Adjustment of the mA and/or kV according to patient size 3. Use of iterative reconstruction technique Electronically signed by: Chris Eastman MD (11/16/2018 8:33 AM) [facility]
[2018-11-16] MEDS: LACTOBACILLUS RHAMNOSUS GG 1 CAPSULE. PO SCH ×2 (09:00→20:02)
--- NOTE | 2018-11-16 09:20 | PDOC ---
PROGRESS NOTES Diagnosis Problem Problems Medical Problems: (1) Generalized weakness Status: Acute (2) Hypotension Status: Acute Assessment Problems Medical Problems: (1) Generalized weakness Status: Acute (2) Hypotension Status: Acute 1. Urosepsis - mgmt per PCP, continues to require pressors. abx per PCP 2. hypotension - remains on neosynephrine, titrating down. 3. PE - anticoag per PCP 4. PHTN - mod 4. anemia with iron def - per PCP 5. renal insufficiency - improving with IVF Continue supportive care. Titrate off neosynephrine as tolerated. Subjective feeling better this am, no dyspnea, no chest pain, still c/o weakness. Objective Vital Signs Date Time Temp Pulse Resp B/P (MAP) Pulse Ox O2 Delivery O2 Flow Rate FiO2 11/16/18 08:35 97.7 89 12 134/67 (89) 98 Nasal Cannula 2.0 Intake and Output 11/16/18 07:00 Intake Total 3942 ml Output Total 2975 ml Balance 967 ml Intake Oral 1990 ml IV Total 1952 ml Output Urine Total 2975 ml Abdomen: Normal bowel sounds, Soft, No tenderness Heart: Normal S1, Normal S2, Other (no gallops, clicks or rubs) Extremities: No cyanosis General: Alert, Oriented X3, Cooperative, No acute distress HEENT: Atraumatic Lungs: Other (decreased bases, o/w CTA) Neuro: Normal speech Psych/Mental Status: Mental status NL Review of Relevant I have reviewed the following items nicolas (where applicable) has been applied. Labs Laboratory Tests Test 11/14/18 09:15 11/14/18 13:23 11/14/18 16:50 11/14/18 20:20 White Blood Count 6.8 x10^3/uL (4.0-11.0) Red Blood Count 3.19 x10^6/uL (3.50-5.40) Hemoglobin 9.0 g/dL (12.0-15.5) Hematocrit 28.3 % (36.0-47.0) Mean Corpuscular Volume 89 fL (79-100) Mean Corpuscular Hemoglobin 28 pg (25-35) Mean Corpuscular Hemoglobin Concent 32 g/dL (31-37) Red Cell Distribution Width 15.7 % (11.5-14.5) Platelet Count 252 x10^3/uL (140-400) Neutrophils (%) (Auto) 60 % (31-73) Lymphocytes (%) (Auto) 24 % (24-48) Monocytes (%) (Auto) 8 % (0-9) Eosinophils (%) (Auto) 8 % (0-3) Basophils (%) (Auto) 1 % (0-3) Neutrophils # (Auto) 4.1 x10^3uL (1.8-7.7) Lymphocytes # (Auto) 1.6 x10^3/uL (1.0-4.8) Monocytes # (Auto) 0.5 x10^3/uL (0.0-1.1) Eosinophils # (Auto) 0.5 x10^3/uL (0.0-0.7) Basophils # (Auto) 0.1 x10^3/uL (0.0-0.2) Sodium Level 139 mmol/L (136-145) Potassium Level 4.9 mmol/L (3.5-5.1) Chloride Level 103 mmol/L (98-107) Carbon Dioxide Level 27 mmol/L (21-32) Anion Gap 9 (6-14) Blood Urea Nitrogen 19 mg/dL (7-20) Creatinine 2.2 mg/dL (0.6-1.0) Estimated GFR (Cockcroft-Gault) 22.0 Glucose Level 87 mg/dL (70-99) Lactic Acid Level 1.6 mmol/L (0.4-2.0) 1.0 mmol/L (0.4-2.0) Calcium Level 8.2 mg/dL (8.5-10.1) Magnesium Level 2.1 mg/dL (1.8-2.4) Total Bilirubin 0.3 mg/dL (0.2-1.0) Direct Bilirubin 0.1 mg/dL (0.0-0.2) Aspartate Amino Transf (AST/SGOT) 16 U/L (15-37) Alanine Aminotransferase (ALT/SGPT) 10 U/L (14-59) Alkaline Phosphatase 159 U/L (46-116) Troponin I Quantitative < 0.017 ng/mL (0-0.055) Total Protein 6.5 g/dL (6.4-8.2) Albumin 3.0 g/dL (3.4-5.0) Thyroid Stimulating Hormone (TSH) 7.361 uIU/mL (0.358-3.740) Nasal Screen MRSA (PCR) Negative (Negative) D-Dimer (Bre) 3.86 mg/L (0.00-0.50) Iron Level 26 ug/dL (50-170) Total Iron Binding Capacity 221 ug/dL (250-450) Iron Saturation 12 % (15-34) Procalcitonin < 0.10 ng/mL (0.00-0.10) Test 11/15/18 08:15 11/15/18 08:50 11/16/18 05:42 Urine Collection Type U cath Urine Color Quin Urine Clarity Cloudy Urine pH 5.0 Urine Specific [place] 1.025 Urine Protein 30 mg/dl (NEG-TRACE) Urine Glucose (UA) Neg mg/dL (NEG) Urine Ketones (Stick) Trace mg/dL (NEG) Urine Blood Small (NEG) Urine Nitrite Pos (NEG) Urine Bilirubin Neg (NEG) Urine Urobilinogen Dipstick 0.2 mg/dL (0.2 mg/dL) Urine Leukocyte Esterase Mod (NEG) Urine RBC 6-10 /HPF (0-2) Urine WBC >40 /HPF (0-4) Urine Squamous Epithelial Cells Few /LPF Urine Transitional Epithelial Cells Few /LPF Urine Bacteria Mod /HPF (0-FEW) Urine Mucus Slight /LPF White Blood Count 13.1 x10^3/uL (4.0-11.0) 5.1 x10^3/uL (4.0-11.0) Red Blood Count 3.33 x10^6/uL (3.50-5.40) 2.72 x10^6/uL (3.50-5.40) Hemoglobin 9.3 g/dL (12.0-15.5) 7.8 g/dL (12.0-15.5) Hematocrit 29.2 % (36.0-47.0) 24.0 % (36.0-47.0) Mean Corpuscular Volume 88 fL (79-100) 89 fL (79-100) Mean Corpuscular Hemoglobin 28 pg (25-35) 29 pg (25-35) Mean Corpuscular Hemoglobin Concent 32 g/dL (31-37) 32 g/dL (31-37) Red Cell Distribution Width 15.2 % (11.5-14.5) 15.3 % (11.5-14.5) Platelet Count 267 x10^3/uL (140-400) 150 x10^3/uL (140-400) Neutrophils (%) (Auto) 81 % (31-73) Lymphocytes (%) (Auto) 5 % (24-48) Monocytes (%) (Auto) 11 % (0-9) Eosinophils (%) (Auto) 4 % (0-3) Basophils (%) (Auto) 1 % (0-3) Neutrophils # (Auto) 10.6 x10^3uL (1.8-7.7) Lymphocytes # (Auto) 0.6 x10^3/uL (1.0-4.8) Monocytes # (Auto) 1.4 x10^3/uL (0.0-1.1) Eosinophils # (Auto) 0.5 x10^3/uL (0.0-0.7) Basophils # (Auto) 0.1 x10^3/uL (0.0-0.2) Segmented Neutrophils % 85 % (35-66) Lymphocytes % 7 % (24-48) Monocytes % 5 % (0-10) Eosinophils % 3 % (0-5) Platelet Estimate Adequate (ADEQUATE) Large Platelets Occ Polychromasia Present Sodium Level 140 mmol/L (136-145) 142 mmol/L (136-145) Potassium Level 5.2 mmol/L (3.5-5.1) 5.0 mmol/L (3.5-5.1) Chloride Level 106 mmol/L (98-107) 111 mmol/L (98-107) Carbon Dioxide Level 23 mmol/L (21-32) 24 mmol/L (21-32) Anion Gap 11 (6-14) 7 (6-14) Blood Urea Nitrogen 20 mg/dL (7-20) 19 mg/dL (7-20) Creatinine 1.7 mg/dL (0.6-1.0) 1.4 mg/dL (0.6-1.0) Estimated GFR (Cockcroft-Gault) 29.6 37.1 Glucose Level 130 mg/dL (70-99) 81 mg/dL (70-99) Calcium Level 8.4 mg/dL (8.5-10.1) 7.9 mg/dL (8.5-10.1) BUN/Creatinine Ratio 14 (6-20) Total Bilirubin 0.2 mg/dL (0.2-1.0) Aspartate Amino Transf (AST/SGOT) 14 U/L (15-37) Alanine Aminotransferase (ALT/SGPT) 9 U/L (14-59) Alkaline Phosphatase 126 U/L (46-116) Total Protein 5.8 g/dL (6.4-8.2) Albumin 2.3 g/dL (3.4-5.0) Albumin/Globulin Ratio 0.7 (1.0-1.7) Microbiology 11/14/18 Blood Culture - Preliminary, Resulted NO GROWTH AFTER 1 DAY... Medications Current Medications Sodium Chloride 1,000 ml @ 1,000 mls/hr Q1H IV Last administered on 11/14/18at 10:42; Start 11/14/18 at 09:19; Stop 11/14/18 at 10:18; Status DC Sodium Chloride 1,000 ml @ 1,000 mls/hr 1X ONCE IV Last administered on 11/14/18at 11:00; Start 11/14/18 at 10:45; Stop 11/14/18 at 11:44; Status DC Sodium Chloride 1,000 ml @ 1,000 mls/hr 1X ONCE IV Last administered on 11/14/18at 11:25; Start 11/14/18 at 11:15; Stop 11/14/18 at 12:14; Status DC Ondansetron HCl (Zofran) 4 mg PRN Q4HRS PRN IV NAUSEA/VOMITING Last administered on 11/15/18at 01:20; Start 11/14/18 at 12:45; Stop 11/15/18 at 12:44; Status DC Sodium Chloride 1,000 ml @ 125 mls/hr Q8H IV Last administered on 11/15/18at 12:47; Start 11/14/18 at 12:36; Stop 11/15/18 at 12:35; Status DC Oxycodone/ Acetaminophen (Percocet 10/325) 1 tab PRN Q6HRS PRN PO PAIN Last administered on 11/15/18at 23:26; Start 11/14/18 at 14:45 Citalopram Hydrobromide (CeleXA) 10 mg DAILY PO Last administered on 11/16/18 08:16; Start 11/15/18 at 09:00 Oxycodone/ Acetaminophen (Percocet 5/325) 1 tab PRN TID PRN PO pain Last administered on 11/16/18 08:19; Start 11/14/18 at 19:30 Promethazine HCl (Phenergan Supp) 25 mg PRN Q8HRS PRN RC NAUSEA; Start 11/14/18 at 19:30 Levothyroxine Sodium (Synthroid) 25 mcg DAILY06 PO Last administered on 11/16/18 05:26; Start 11/15/18 at 06:00 Lisinopril (Prinivil) 2.5 mg DAILY PO ; Start 11/15/18 at 09:00; Stop 11/15/18 at 09:00; Status DC Nitrofurantoin Macrocrystals (Macrobid) 100 mg BID PO ; Start 11/14/18 at 21:00; Stop 11/14/18 at 21:00; Status DC Ondansetron HCl (Zofran Odt) 4 mg PRN Q8HRS PRN PO NAUSEA/VOMITING Last administered on 11/15/18 19:51; Start 11/14/18 at 20:15 Enoxaparin Sodium (Lovenox 100mg Syringe) 100 mg QHS SQ Last administered on 11/15/18 21:18; Start 11/14/18 at 21:00 Pantoprazole Sodium (Protonix) 40 mg BID PO Last administered on 11/16/18 08:18; Start 11/14/18 at 21:00 Oxycodone/ Acetaminophen (Percocet 10/325) 1 tab 1X ONCE PO Last administered on 11/14/18at 20:23; Start 11/14/18 at 20:00; Stop 11/14/18 at 20:09; Status DC Info (Anti-Coagulation Monitoring By Pharmacy) 1 each PRN DAILY PRN MC SEE COMMENTS; Start 11/14/18 at 20:15; Status Cancel Cyclosporine (Restasis) 1 drop BID OU Last administered on 11/16/18 08:14; Start 11/14/18 at 21:00 Zolpidem Tartrate (Ambien) 5 mg PRN QHS PRN PO INSOMNIA, MAY REPEAT X1 Last administered on 11/15/18at 23:26; Start 11/14/18 at 20:45 Non-Formulary Medication (Alendronate Sodium (Fosamax)) 1 tab WEEKLY PO ; Start 11/21/18 at 09:00; Stop 11/21/18 at 09:00; Status DC Anastrozole (Arimidex) 1 mg DAILY PO Last administered on 11/16/18 08:15; Start 11/15/18 at 09:00 Duloxetine HCl (Cymbalta) 60 mg DAILY PO Last administered on 11/16/18 08:19; Start 11/15/18 at 09:00 Gabapentin (Neurontin) 600 mg BID PO Last administered on 11/16/18 08:16; Start 11/14/18 at 21:15 Montelukast Sodium (Singulair) 10 mg DAILY PO Last administered on 11/16/18 08:17; Start 11/15/18 at 09:00 Pantoprazole Sodium (Protonix) 40 mg BIDBFRMEAL PO Last administered on 11/15/18at 08:00; Start 11/14/18 at 21:30; Stop 11/15/18 at 08:02; Status DC Prochlorperazine Maleate (Compazine) 10 mg PRN Q6HRS PRN PO NAUSEA Last administered on 11/14/18 21:54; Start 11/14/18 at 20:45 Tizanidine HCl (Zanaflex) 4 mg PRN Q8HRS PRN PO MUSCLE SPASMS Last administered on 11/14/18at 21:31; Start 11/14/18 at 20:45 Dopamine HCl/ Dextrose 250 ml @ 7.45 mls/hr CONT PRN IV SEE I/O RECORD Last administered on 11/15/18at 00:45; Start 11/15/18 at 00:45 Acetaminophen (Tylenol) 500 mg PRN Q6HRS PRN PO PAIN / TEMP Last administered on 11/15/18 16:22; Start 11/15/18 at 08:30 Phenylephrine HCl 20 mg/Sodium Chloride 252 ml @ 22.68 mls/ hr 1X ONCE IV Last administered on 11/15/18at 10:01; Start 11/15/18 at 09:00; Stop 11/15/18 at 16:37; Status DC Vancomycin HCl (Vanco Per Pharmacy) 1 each PRN DAILY PRN MC SEE COMMENTS Last administered on 11/15/18at 09:43; Start 11/15/18 at 09:15 Cefepime HCl 2 gm/ Sodium Chloride 100 ml @ 200 mls/hr Q12H IV Last administered on 11/15/18at 23:26; Start 11/15/18 at 12:00 Vancomycin HCl 2 gm/Sodium Chloride 500 ml @ 250 mls/hr 1X ONCE IV Last administered on 11/15/18at 10:01; Start 11/15/18 at 10:00; Stop 11/15/18 at 11:59; Status DC Vancomycin HCl 1.5 gm/Sodium Chloride 500 ml @ 250 mls/hr Q24H IV ; Start 11/16/18 at 10:00 Vancomycin HCl (Vancomycin Trough Level) 1 each 1X ONCE MC ; Start 11/17/18 at 09:30; Stop 11/17/18 at 09:31 Phenylephrine HCl 20 mg/Sodium Chloride 252 ml @ 22.68 mls/ hr Q12H IV Last administered on 11/16/18at 06:18; Start 11/15/18 at 17:00 Ibuprofen (Motrin) 600 mg PRN Q6HRS PRN PO INFLAMMATION Last administered on 11/15/18at 21:20; Start 11/15/18 at 18:15 Sodium Chloride 1,000 ml @ 100 mls/hr Q10H IV Last administered on 11/16/18at 07:15; Start 11/15/18 at 21:15 Nystatin (Nystop) 1 laney BID TP Last administered on 11/16/18at 08:21; Start 11/15/18 at 22:00 Iohexol (Omnipaque 350 Mg/ml) 100 ml 1X ONCE IV Last administered on 11/16/18at 07:55; Start 11/16/18 at 07:45; Stop 11/16/18 at 07:47; Status DC Lactobacillus Rhamnosus (Culturelle) 1 cap BID PO ; Start 11/16/18 at 09:00 Active Scripts Active Macrobid 100 Mg Capsule (Nitrofurantoin Monohyd/M-Cryst) 100 Mg Capsule 1 Cap PO BID Phenergan (Promethazine HCl) 25 Mg Supp.rect 25 Mg RC PRN Q8HRS PRN Zofran Odt (Ondansetron) 4 Mg Tab.rapdis 1 Tab SL Q8HRS Percocet 5-325 Mg Tablet (Oxycodone Hcl/Acetaminophen) 1 Each Tablet 1-2 Tab PO Q4-6HRS Reported Xyzal (Levocetirizine Dihydrochloride) 5 Mg Tablet 1 Tab PO DAILY Aspirin 325 Mg Tablet 1 Tab PO DAILY Compazine (Prochlorperazine Maleate) 10 Mg Tablet 10 Mg PO PRN Q6HRS PRN Montelukast Sodium Tablet (Montelukast Sodium) 10 Mg Tablet 1 Tab PO DAILY Restasis (Cyclosporine) 1 Each Droperette 1 Drop EACHEYE BID Zanaflex (Tizanidine HCl) 4 Mg Tablet 4 Mg PO PRN Q8HRS PRN Ambien (Zolpidem Tartrate) 5 Mg Tablet 5 Mg PO PRN QHS PRN Neurontin (Gabapentin) 600 Mg Tablet 600 Mg PO BID Cymbalta (Duloxetine Hcl) 60 Mg Capsule.dr 1 Cap PO DAILY Arimidex (Anastrozole) 1 Mg Tablet 1 Tab PO DAILY Fosamax (Alendronate Sodium) 70 Mg Tablet 1 Tab PO WEEKLY Celexa (Citalopram Hydrobromide) 10 Mg Tablet 20 Mg PO DAILY Synthroid (Levothyroxine Sodium) 25 Mcg Tablet 75 Mcg PO DAILYAC Protonix (Pantoprazole Sodium) 20 Mg Tablet.dr 40 Mg PO BID Lisinopril 2.5 Mg Tablet 10 Mg PO DAILY Vitals/I & O Vital Sign - Last 24 Hours 11/15/18 11/15/18 11/15/18 11/15/18 09:00 09:15 09:30 09:45 Temp 101.0 Pulse 124 116 108 100 Resp 20 20 16 20 B/P (MAP) 116/56 (76) 116/46 (69) 97/49 (65) 99/52 (68) Pulse Ox 100 100 100 98 O2 Delivery Nasal Cannula Nasal Cannula Nasal Cannula Nasal Cannula O2 Flow Rate 2.0 2.0 2.0 2.0 11/15/18 11/15/18 11/15/18 11/15/18 10:00 10:15 10:30 10:45 Pulse 100 98 100 102 Resp 18 18 20 18 B/P (MAP) 99/52 (68) 99/61 (74) 110/50 (70) 99/45 (63) Pulse Ox 100 98 98 98 O2 Delivery Nasal Cannula Nasal Cannula Nasal Cannula Nasal Cannula O2 Flow Rate 2.0 2.0 2.0 2.0 11/15/18 11/15/18 11/15/18 11/15/18 10:58 11:00 12:08 12:30 Temp 99.4 Pulse 102 94 Resp 16 16 B/P (MAP) 103/54 (70) 119/62 (81) Pulse Ox 98 98 O2 Delivery Nasal Cannula Mask Room Air Nasal Cannula O2 Flow Rate 2.0 2.0 2.0 11/15/18 11/15/18 11/15/18 11/15/18 14:00 14:04 16:00 16:20 Temp 98.0 Pulse 93 91 Resp 16 16 B/P (MAP) 102/52 (69) 112/55 (74) Pulse Ox 98 98 O2 Delivery Nasal Cannula Mask Nasal Cannula O2 Flow Rate 2.0 2.0 2.0 11/15/18 11/15/18/12/2911/15/18 16:30 16:45 17:30 18:04 Temp 99.5 Pulse 90 90 84 Resp 15 12 16 B/P (MAP) 93/46 (62) 110/57 (74) 131/72 (91) Pulse Ox 99 98 O2 Delivery Nasal Cannula Nasal Cannula Nasal Cannula Room Air O2 Flow Rate 2.0 2.0 2.0 11/15/18 11/15/18 11/15/18 11/15/18 18:34 19:00 19:04 19:30 Pulse 90 96 94 Resp 20 B/P (MAP) 123/65 (84) 113/54 (73) 120/62 (81) Pulse Ox 98 100 O2 Delivery Nasal Cannula Nasal Cannula Room Air Nasal Cannula O2 Flow Rate 2.0 2.0 2.0 11/15/18 11/15/18 11/15/18 11/15/18 20:13 20:20 20:56 21:30 Temp 99.1 99.5 Pulse 100 96 Resp 15 16 B/P (MAP) 135/64 (87) 135/64 (87) Pulse Ox 100 100 O2 Delivery Nasal Cannula Nasal Cannula Nasal Cannula O2 Flow Rate 2.0 2.0 2.0 11/15/18 11/15/18 11/15/18 11/15/18 21:55 22:27 23:01 23:45 Temp 98.9 Pulse 97 98 97 97 Resp 12 12 16 B/P (MAP) 151/61 (91) 152/64 (93) 155/69 (97) 149/72 (97) Pulse Ox 100 100 100 97 O2 Delivery Nasal Cannula Nasal Cannula Nasal Cannula Nasal Cannula O2 Flow Rate 2.0 2.0 2.0 2.0 11/15/18 11/15/18 11/16/18 11/16/18 23:46 23:54 00:24 00:54 Pulse 98 94 98 Resp 13 14 14 B/P (MAP) 134/60 (84) 141/66 (91) 118/54 (75) Pulse Ox 98 98 98 O2 Delivery Nasal Cannula Nasal Cannula Nasal Cannula Nasal Cannula O2 Flow Rate 2.0 2.0 2.0 2.0 11/16/18 11/16/18 11/16/18 11/16/18 01:30 01:54 02:25 02:54 Pulse 96 100 98 100 Resp 16 14 13 12 B/P (MAP) 153/67 (95) 146/64 (91) 136/58 (84) 134/59 (84) Pulse Ox 98 98 98 98 O2 Delivery Nasal Cannula Nasal Cannula Nasal Cannula Nasal Cannula O2 Flow Rate 2.0 2.0 2.0 2.0 11/16/18 11/16/18 11/16/18 11/16/18 03:25 03:53 04:31 04:54 Pulse 98 92 88 86 Resp 12 14 21 16 B/P (MAP) 111/48 (69) 96/50 (65) 115/60 (78) 119/54 (75) Pulse Ox 97 97 97 97 O2 Delivery Nasal Cannula Nasal Cannula Nasal Cannula Nasal Cannula O2 Flow Rate 2.0 2.0 2.0 2.0 11/16/18 11/16/18 11/16/18 11/16/18 05:24 05:30 05:55 06:26 Temp 97.8 Pulse 83 90 83 Resp 16 13 11 B/P (MAP) 112/74 (87) 111/62 (78) 125/59 (81) Pulse Ox 96 98 97 O2 Delivery Nasal Cannula Nasal Cannula Nasal Cannula Nasal Cannula O2 Flow Rate 2.0 2.0 2.0 2.0 11/16/18 11/16/18 11/16/18 11/16/18 07:23 08:19 08:30 08:35 Temp 97.7 Pulse 81 89 Resp 12 12 12 B/P (MAP) 124/57 (79) 134/67 (89) Pulse Ox 99 98 O2 Delivery Nasal Cannula Nasal Cannula Nasal Cannula O2 Flow Rate 2.0 2.0 2.0 Intake and Output 11/15/18 11/15/18 11/16/18 15:00 23:00 07:00 Intake Total 1000 ml 1920 ml 1022 ml Output Total 200 ml 1625 ml 1150 ml Balance 800 ml 295 ml -128 ml YRIS DOUGLAS [employer] November 16, 2018 09:20
[2018-11-16] MEDS ORDERED: SUMAtriptan SUCCINATE 50 MG TABLET PO ONE (10:00)
[2018-11-16] MEDS: VANCOMYCIN 1.5 GM in IV NORMAL SALINE 500ML 500 ML IV SCH (10:15)
[2018-11-16] MEDS: TOPIRAMATE 25 MG TABLET. PO SCH ×2 (10:15→20:03)
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
[2018-11-16] MEDS: APIXABAN 5 MG TABLET. PO SCH ×5 (13:00→20:02)
[2018-11-16] MEDS: CEFEPIME HCL 2 GM in IV NORMAL SALINE 100ML 100 ML IV SCH ×2 (13:12→23:14)
[2018-11-16 15:05] LABS: FECAL OB PT POSITIVE (NEG)
[2018-11-16] MEDS: oxyCODONE/APAP 10/325 1 TAB TABLET PO PRN (16:20)
--- NOTE | 2018-11-16 18:29 | RAD ---
EXAM: Bilateral lower extremity venous Doppler sonogram. HISTORY: Pain and swelling. Elevated d-dimer. TECHNIQUE: Monae scale and color Doppler sonographic evaluation of the bilateral lower extremity veins with spectral waveform analysis was performed. FINDINGS: There is normal color flow, normal compressibility and there are normal spectral waveforms in the common femoral, superficial femoral, popliteal, posterior tibial and greater saphenous veins. IMPRESSION: No Doppler evidence of lower extremity deep venous thrombosis. Electronically signed by: Jazlyn Martinez MD (11/16/2018 6:26 PM) [facility]
[2018-11-16] MEDS: ONDANSETRON ODT 4 MG TAB.RAPDIS PO PRN (19:12)
[2018-11-16] MEDS: ZOLPIDEM 5 MG TABLET. PO PRN (23:15)
[2018-11-17] VITALS (18 sets, daily range): BP systolic 99–164; BP diastolic 49–109
--- NOTE | 2018-11-17 00:12 | PN ---
DATE: 11/16/2018 SUBJECTIVE: The patient is resting slightly propped up in bed, no apparent distress. She continued to complain of headache and was seen by Dr. Paula and was started on topiramate 25 mg twice a day. She is off the Levophed. Her kidney function has improved. Her creatinine came down from 2.2-1.4 and in consultation with the radiologist they recommended that the CT angio of the chest can be done safely at this level and she did have a CT angio of the chest, which basically showed that she has 2 tiny subsegmental pulmonary arterial filling defects present in the right upper lobe compatible with pulmonary emboli. She has incomplete opacification of the lower lobe pulmonary arteries bilaterally with moderate bibasilar atelectasis/infiltrate. There is trace amount of left-sided pleural effusion. I did speak with the orthopedic spine surgeon at [facility], Dr. Samuel, who stated that it is safe to anticoagulate her and in consultation with our pharmacy, she was started on 10 mg twice a day. PHYSICAL EXAMINATION: GENERAL: When I saw her this morning, she looked well and was clearly in no apparent respiratory distress. Slightly pale. No jaundice, cyanosis, or thyromegaly. No jugular venous distension. No limb edema. VITAL SIGNS: Her heart rate was 86, blood pressure 110/60, temperature was 97.7, respiratory rate was 12, and oxygen saturation was 98% on 2 liters of oxygen. HEAD, EYES, EARS, NOSE, AND THROAT: Showed normocephalic, atraumatic. NECK: Supple. HEART: Showed normal first and second heart sounds with no gallop, rub, or murmur. CHEST: Clear to auscultation. No crepitation or rhonchi. ABDOMEN: Distended, soft, nontender. No guarding or rigidity. No organomegaly. All hernial orifices intact. Bowel sounds normal. NEUROLOGIC: She is awake, alert, responding appropriately. All her cranial nerves intact. She moves extremities without difficulty. Examination of her surgical wound in her back showed it is healing nicely with no redness, tenderness, or discharge. ASSESSMENT: 1. Altered mental status and severe hypotension, systolic pressure of only 60 mmHg, resolved. She is on IV fluid and she was on Levophed that was discontinued. 2. Acute versus acute on chronic kidney injury, improving. Her creatinine came down from 2.1-1.4. 3. Her D-dimer was elevated and CT angio of the chest showed that she has pulmonary emboli, she was on Lovenox and we switched her to Eliquis. 4. Urinary tract infection for which she is on IV antibiotic, although her blood cultures are so far negative. PLAN: We will discontinue Lovenox and start her on Eliquis 10 mg twice a day. Continue with IV vancomycin and cefepime. Continue with IV fluid for now and once we have the urine culture, we will adjust antibiotics accordingly. EMI VALLEJO MD DR: DONALD/char JOB#: [id number] / [id number]
[2018-11-17] MEDS: PHENYLEPHRINE INJ 20 MG in IV NORMAL SALINE 250ML 250 ML IV SCH (05:00)
[2018-11-17] MEDS: LEVOTHYROXINE 25 MCG TABLET. PO SCH (05:27)
[2018-11-17 06:14] LABS: HEMATOCRIT 21.7 % (36.0-47.0); RED BLOOD COUNT 2.44 x10^6/uL (3.50-5.40); RED CELL DISTRIBUTION WIDTH 15.4 % (11.5-14.5); WHITE BLOOD COUNT 4.6 x10^3/uL (4.0-11.0)
[2018-11-17 06:22] LABS: CALCIUM 7.2 mg/dL (8.5-10.1); CREATININE 1.1 mg/dL (0.6-1.0); POTASSIUM 4.4 mmol/L (3.5-5.1)
[2018-11-17] MEDS: oxyCODONE/APAP 5/325 1 TAB TABLET PO PRN (06:39)
--- NOTE | 2018-11-17 06:45 | NUR ---
Orders to transfuse ONE UNIT PRBCs Osorio from lab called with critical results at 0623: hemoglobin was 7.0. [facility] notified via telephone at [phone]. He acknowledged the result and gave the following orders: hold Eliquis, type and cross match pt and then transfuse ONE UNIT PRBCs. Orders repeated back to [facility] and entered into [employer]. Type and crossmatch obtained and sent to lab. Frank Mckeon RN Addendum: 11/17/18 at 0732 by HECTOR MCKEON RN RN Amended: Links added.
[2018-11-17] MEDS ORDERED: diphenhydrAMINE HCL 25 MG CAPSULE PO ONE ×2 (07:00→07:30)
[2018-11-17] MEDS: APIXABAN 5 MG TABLET. PO SCH (07:27)
[2018-11-17] MEDS ORDERED: PHENYLEPHRINE INJ 20 MG in IV NORMAL SALINE 250ML 250 ML IV PRN (07:30)
[2018-11-17] MEDS: NYSTATIN TOPICAL POWDER 15GM BOTTLE. TP SCH (09:00)
--- NOTE | 2018-11-17 09:15 | NUR ---
Blood transfusion started at 0850. Tubing primed with normal saline and then primed with blood. Transfusion started 65mL/hr, patient monitored closely for 15 minutes. No reaction noted, transfusion increased to 125mL/hr. Will CTM.
--- NOTE | 2018-11-17 09:24 | PDOC ---
PROGRESS NOTES Diagnosis Problem Problems Medical Problems: (1) Generalized weakness Status: Acute (2) Hypotension Status: Acute Assessment Problems Medical Problems: (1) Generalized weakness Status: Acute (2) Hypotension Status: Acute 1. Urosepsis - off pressors. mgmt per PCP 2. hypotension - resolved. off pressors 24 hours. pressure now moderately elevated. slowly resume home antihypertensives. 3. anemia - hgb 7.0 with heme positive stool. receiving blood. mgmt per PCP 4. PE - 2 tiny subsegmental filling defects right upper lobe by CT. If suspicion of PE high would suggest VQ scan. otherwise OK to hold eliquis at this time from our standpoint. 5. PHTN - PAS 44 mmHg by echo. mild TR. suggest outpatient sleep study. 6. renal insufficiency - improved 7. hypothyroid - per PCP 8. migraine - neuro consulting Subjective feeling much better, no chest pain, no dyspnea, no palpitations, c/o headache Objective Vital Signs Date Time Temp Pulse Resp B/P (MAP) Pulse Ox O2 Delivery O2 Flow Rate FiO2 11/17/18 08:50 97.9 100 153/65 11/17/18 07:51 Nasal Cannula 2.0 11/17/18 07:47 95 11/17/18 05:55 15 Intake and Output 11/17/18 07:00 Intake Total 5644.52 ml Output Total 5100 ml Balance 544.52 ml Intake Oral 1260 ml IV Total 4384.52 ml Output Urine Total 5100 ml Abdomen: Normal bowel sounds, Soft, No tenderness Heart: Normal S1, Normal S2, Other (no gallops, clicks or rubs) Extremities: No cyanosis, Normal pulses General: Alert, Oriented X3, Cooperative, No acute distress HEENT: Atraumatic, EOMI Lungs: Clear to auscultation Neuro: Normal speech, Strength at 5/5 X4 ext Psych/Mental Status: Mental status NL, Mood NL Review of Relevant I have reviewed the following items nicolas (where applicable) has been applied. Labs Laboratory Tests Test 11/16/18 05:42 11/16/18 13:40 11/17/18 05:40 White Blood Count 5.1 x10^3/uL (4.0-11.0) 4.6 x10^3/uL (4.0-11.0) Red Blood Count 2.72 x10^6/uL (3.50-5.40) 2.44 x10^6/uL (3.50-5.40) Hemoglobin 7.8 g/dL (12.0-15.5) 7.0 g/dL (12.0-15.5) Hematocrit 24.0 % (36.0-47.0) 21.7 % (36.0-47.0) Mean Corpuscular Volume 89 fL (79-100) 89 fL (79-100) Mean Corpuscular Hemoglobin 29 pg (25-35) 29 pg (25-35) Mean Corpuscular Hemoglobin Concent 32 g/dL (31-37) 32 g/dL (31-37) Red Cell Distribution Width 15.3 % (11.5-14.5) 15.4 % (11.5-14.5) Platelet Count 150 x10^3/uL (140-400) 143 x10^3/uL (140-400) Sodium Level 142 mmol/L (136-145) 144 mmol/L (136-145) Potassium Level 5.0 mmol/L (3.5-5.1) 4.4 mmol/L (3.5-5.1) Chloride Level 111 mmol/L (98-107) 114 mmol/L (98-107) Carbon Dioxide Level 24 mmol/L (21-32) 21 mmol/L (21-32) Anion Gap 7 (6-14) 9 (6-14) Blood Urea Nitrogen 19 mg/dL (7-20) 13 mg/dL (7-20) Creatinine 1.4 mg/dL (0.6-1.0) 1.1 mg/dL (0.6-1.0) Estimated GFR (Cockcroft-Gault) 37.1 49.0 BUN/Creatinine Ratio 14 (6-20) Glucose Level 81 mg/dL (70-99) 66 mg/dL (70-99) Calcium Level 7.9 mg/dL (8.5-10.1) 7.2 mg/dL (8.5-10.1) Total Bilirubin 0.2 mg/dL (0.2-1.0) Aspartate Amino Transf (AST/SGOT) 14 U/L (15-37) Alanine Aminotransferase (ALT/SGPT) 9 U/L (14-59) Alkaline Phosphatase 126 U/L (46-116) Total Protein 5.8 g/dL (6.4-8.2) Albumin 2.3 g/dL (3.4-5.0) Albumin/Globulin Ratio 0.7 (1.0-1.7) Free Thyroxine 1.04 ng/dL (0.76-1.46) Free Triiodothyronine (T3) pg/mL 1.57 pg/mL (2.18-3.98) Stool Occult Blood Positive (NEG) Microbiology 11/15/18 Blood Culture - Preliminary, Resulted NO GROWTH AFTER 2 DAYS... 11/14/18 Urine Culture - Preliminary, Resulted 11/14/18 Urine Culture Result 1 (DWAYNE) - Preliminary, Resulted Medications Current Medications Sodium Chloride 1,000 ml @ 1,000 mls/hr Q1H IV Last administered on 11/14/18at 10:42; Start 11/14/18 at 09:19; Stop 11/14/18 at 10:18; Status DC Sodium Chloride 1,000 ml @ 1,000 mls/hr 1X ONCE IV Last administered on 11/14/18at 11:00; Start 11/14/18 at 10:45; Stop 11/14/18 at 11:44; Status DC Sodium Chloride 1,000 ml @ 1,000 mls/hr 1X ONCE IV Last administered on 11/14/18at 11:25; Start 11/14/18 at 11:15; Stop 11/14/18 at 12:14; Status DC Ondansetron HCl (Zofran) 4 mg PRN Q4HRS PRN IV NAUSEA/VOMITING Last administered on 11/15/18at 01:20; Start 11/14/18 at 12:45; Stop 11/15/18 at 12:44; Status DC Sodium Chloride 1,000 ml @ 125 mls/hr Q8H IV Last administered on 11/15/18at 12:47; Start 11/14/18 at 12:36; Stop 11/15/18 at 12:35; Status DC Oxycodone/ Acetaminophen (Percocet 10/325) 1 tab PRN Q6HRS PRN PO PAIN Last administered on 11/16/18at 16:20; Start 11/14/18 at 14:45 Citalopram Hydrobromide (CeleXA) 10 mg DAILY PO Last administered on 11/16/18 08:16; Start 11/15/18 at 09:00 Oxycodone/ Acetaminophen (Percocet 5/325) 1 tab PRN TID PRN PO pain Last administered on 11/17/18 06:39; Start 11/14/18 at 19:30 Promethazine HCl (Phenergan Supp) 25 mg PRN Q8HRS PRN RC NAUSEA; Start 11/14/18 at 19:30 Levothyroxine Sodium (Synthroid) 25 mcg DAILY06 PO Last administered on 11/17/18 05:27; Start 11/15/18 at 06:00 Lisinopril (Prinivil) 2.5 mg DAILY PO ; Start 11/15/18 at 09:00; Stop 11/15/18 at 09:00; Status DC Nitrofurantoin Macrocrystals (Macrobid) 100 mg BID PO ; Start 11/14/18 at 21:00; Stop 11/14/18 at 21:00; Status DC Ondansetron HCl (Zofran Odt) 4 mg PRN Q8HRS PRN PO NAUSEA/VOMITING Last administered on 11/16/18 19:12; Start 11/14/18 at 20:15 Enoxaparin Sodium (Lovenox 100mg Syringe) 100 mg QHS SQ Last administered on 11/15/18 21:18; Start 11/14/18 at 21:00; Stop 11/16/18 at 13:01; Status DC Pantoprazole Sodium (Protonix) 40 mg BID PO Last administered on 11/16/18at 20:03; Start 11/14/18 at 21:00 Oxycodone/ Acetaminophen (Percocet 10/325) 1 tab 1X ONCE PO Last administered on 11/14/18at 20:23; Start 11/14/18 at 20:00; Stop 11/14/18 at 20:09; Status DC Info (Anti-Coagulation Monitoring By Pharmacy) 1 each PRN DAILY PRN MC SEE COMMENTS; Start 11/14/18 at 20:15; Status Cancel Cyclosporine (Restasis) 1 drop BID OU Last administered on 11/16/18at 20:03; Start 11/14/18 at 21:00 Zolpidem Tartrate (Ambien) 5 mg PRN QHS PRN PO INSOMNIA, MAY REPEAT X1 Last administered on 11/16/18 23:15; Start 11/14/18 at 20:45 Non-Formulary Medication (Alendronate Sodium (Fosamax)) 1 tab WEEKLY PO ; Start 11/21/18 at 09:00; Stop 11/21/18 at 09:00; Status DC Anastrozole (Arimidex) 1 mg DAILY PO Last administered on 11/16/18 08:15; Start 11/15/18 at 09:00 Duloxetine HCl (Cymbalta) 60 mg DAILY PO Last administered on 11/16/18 08:19; Start 11/15/18 at 09:00 Gabapentin (Neurontin) 600 mg BID PO Last administered on 11/16/18 20:03; Start 11/14/18 at 21:15 Montelukast Sodium (Singulair) 10 mg DAILY PO Last administered on 11/16/18 08:17; Start 11/15/18 at 09:00 Pantoprazole Sodium (Protonix) 40 mg BIDBFRMEAL PO Last administered on 11/15/18at 08:00; Start 11/14/18 at 21:30; Stop 11/15/18 at 08:02; Status DC Prochlorperazine Maleate (Compazine) 10 mg PRN Q6HRS PRN PO NAUSEA Last administered on 11/14/18 21:54; Start 11/14/18 at 20:45 Tizanidine HCl (Zanaflex) 4 mg PRN Q8HRS PRN PO MUSCLE SPASMS Last administered on 11/14/18at 21:31; Start 11/14/18 at 20:45 Dopamine HCl/ Dextrose 250 ml @ 7.45 mls/hr CONT PRN IV SEE I/O RECORD Last administered on 11/15/18at 00:45; Start 11/15/18 at 00:45 Acetaminophen (Tylenol) 500 mg PRN Q6HRS PRN PO PAIN / TEMP Last administered on 11/15/18at 16:22; Start 11/15/18 at 08:30 Phenylephrine HCl 20 mg/Sodium Chloride 252 ml @ 22.68 mls/ hr 1X ONCE IV Last administered on 11/15/18at 10:01; Start 11/15/18 at 09:00; Stop 11/15/18 at 16:37; Status DC Vancomycin HCl (Vanco Per Pharmacy) 1 each PRN DAILY PRN MC SEE COMMENTS Last administered on 11/15/18at 09:43; Start 11/15/18 at 09:15 Cefepime HCl 2 gm/ Sodium Chloride 100 ml @ 200 mls/hr Q12H IV Last administered on 11/16/18at 23:14; Start 11/15/18 at 12:00 Vancomycin HCl 2 gm/Sodium Chloride 500 ml @ 250 mls/hr 1X ONCE IV Last administered on 11/15/18at 10:01; Start 11/15/18 at 10:00; Stop 11/15/18 at 11:59; Status DC Vancomycin HCl 1.5 gm/Sodium Chloride 500 ml @ 250 mls/hr Q24H IV Last administered on 11/16/18at 10:15; Start 11/16/18 at 10:00 Vancomycin HCl (Vancomycin Trough Level) 1 each 1X ONCE MC ; Start 11/17/18 at 09:30; Stop 11/17/18 at 09:31 Phenylephrine HCl 20 mg/Sodium Chloride 252 ml @ 22.68 mls/ hr Q12H IV Last administered on 11/16/18 06:18; Start 11/15/18 at 17:00; Stop 11/17/18 at 07:26; Status DC Ibuprofen (Motrin) 600 mg PRN Q6HRS PRN PO INFLAMMATION Last administered on 11/15/18 21:20; Start 11/15/18 at 18:15; Stop 11/16/18 at 12:23; Status DC Sodium Chloride 1,000 ml @ 100 mls/hr Q10H IV Last administered on 11/16/18at 23:15; Start 11/15/18 at 21:15 Nystatin (Nystop) 1 laney BID TP Last administered on 11/16/18 20:02; Start 11/15/18 at 22:00 Iohexol (Omnipaque 350 Mg/ml) 100 ml 1X ONCE IV Last administered on 11/16/18 07:55; Start 11/16/18 at 07:45; Stop 11/16/18 at 07:47; Status DC Lactobacillus Rhamnosus (Culturelle) 1 cap BID PO Last administered on 11/16/18at 20:02; Start 11/16/18 at 09:00 Topiramate (Topamax) 25 mg BID PO Last administered on 11/16/18at 20:03; Start 11/16/18 at 10:00 Sumatriptan Succinate (Imitrex) 100 mg 1X ONCE PO Last administered on 11/16/18at 10:15; Start 11/16/18 at 10:00; Stop 11/16/18 at 10:01; Status DC Apixaban (Eliquis) 10 mg BID PO Last administered on 11/16/18at 13:00; Start 11/16/18 at 13:00; Stop 11/16/18 at 21:00; Status DC Apixaban (Eliquis) 10 mg BID PO Last administered on 11/16/18at 20:02; Start 11/16/18 at 13:00 Fentanyl Citrate (Fentanyl 2ml Vial) 50 mcg PRN Q3HRS PRN IV PAIN Last administered on 11/16/18at 18:32; Start 11/16/18 at 16:30 Diphenhydramine HCl (Benadryl) 12.5 mg 1X ONCE PO ; Start 11/17/18 at 07:00; Stop 11/17/18 at 07:01; Status UNV Diphenhydramine HCl (Benadryl) 25 mg 1X ONCE PO ; Start 11/17/18 at 07:30; Stop 11/17/18 at 07:31; Status DC Phenylephrine HCl 20 mg/Sodium Chloride 252 ml @ 22.68 mls/ hr PRN Q12HR PRN IV HYPOTENSION; Start 11/17/18 at 07:30 Active Scripts Active Macrobid 100 Mg Capsule (Nitrofurantoin Monohyd/M-Cryst) 100 Mg Capsule 1 Cap PO BID Phenergan (Promethazine HCl) 25 Mg Supp.rect 25 Mg RC PRN Q8HRS PRN Zofran Odt (Ondansetron) 4 Mg Tab.rapdis 1 Tab SL Q8HRS Percocet 5-325 Mg Tablet (Oxycodone Hcl/Acetaminophen) 1 Each Tablet 1-2 Tab PO Q4-6HRS Reported Xyzal (Levocetirizine Dihydrochloride) 5 Mg Tablet 1 Tab PO DAILY Aspirin 325 Mg Tablet 1 Tab PO DAILY Compazine (Prochlorperazine Maleate) 10 Mg Tablet 10 Mg PO PRN Q6HRS PRN Montelukast Sodium Tablet (Montelukast Sodium) 10 Mg Tablet 1 Tab PO DAILY Restasis (Cyclosporine) 1 Each Droperette 1 Drop EACHEYE BID Zanaflex (Tizanidine HCl) 4 Mg Tablet 4 Mg PO PRN Q8HRS PRN Ambien (Zolpidem Tartrate) 5 Mg Tablet 5 Mg PO PRN QHS PRN Neurontin (Gabapentin) 600 Mg Tablet 600 Mg PO BID Cymbalta (Duloxetine Hcl) 60 Mg Capsule.dr 1 Cap PO DAILY Arimidex (Anastrozole) 1 Mg Tablet 1 Tab PO DAILY Fosamax (Alendronate Sodium) 70 Mg Tablet 1 Tab PO WEEKLY Celexa (Citalopram Hydrobromide) 10 Mg Tablet 20 Mg PO DAILY Synthroid (Levothyroxine Sodium) 25 Mcg Tablet 75 Mcg PO DAILYAC Protonix (Pantoprazole Sodium) 20 Mg Tablet.dr 40 Mg PO BID Lisinopril 2.5 Mg Tablet 10 Mg PO DAILY Vitals/I & O Vital Sign - Last 24 Hours 11/16/18 11/16/18 11/16/18 11/16/18 11:19 12:00 13:51 13:52 Temp 97.7 Pulse 86 92 Resp 12 13 B/P (MAP) 110/60 (77) 145/70 (95) Pulse Ox 98 98 O2 Delivery Nasal Cannula Nasal Cannula Nasal Cannula Room Air O2 Flow Rate 2.0 2.0 2.0 11/16/18 11/16/18 11/16/18 11/16/18 15:07 16:03 16:04 18:51 Temp 98.3 98.5 Pulse 88 89 89 Resp 14 18 16 B/P (MAP) 121/68 (85) 145/68 (93) 160/70 (100) Pulse Ox 91 98 98 O2 Delivery Room Air Nasal Cannula Nasal Cannula Room Air O2 Flow Rate 2.0 2.0 2.0 11/16/18 11/16/18 11/16/18 11/16/18 19:25 19:57 20:00 20:00 Temp 98.1 Pulse 108 100 Resp 10 11 10 B/P (MAP) 158/67 (97) 114/68 (83) Pulse Ox 98 98 98 O2 Delivery Nasal Cannula Nasal Cannula Nasal Cannula O2 Flow Rate 2.0 2.0 2.0 11/16/18 11/16/18 11/16/18 11/16/18 20:27 20:30 20:57 21:57 Pulse 92 90 92 Resp 23 12 14 B/P (MAP) 136/63 (87) 144/68 (93) 140/69 (92) Pulse Ox 96 98 97 O2 Delivery Nasal Cannula Nasal Cannula Nasal Cannula Nasal Cannula O2 Flow Rate 2.0 2.0 2.0 2.0 11/16/18 11/16/18 11/16/18 11/17/18 22:57 23:50 23:56 01:02 Temp 99.2 Pulse 92 96 104 Resp 17 B/P (MAP) 130/64 (86) 126/55 (78) 102/51 (68) Pulse Ox 100 96 96 O2 Delivery Nasal Cannula Nasal Cannula Nasal Cannula Nasal Cannula O2 Flow Rate 2.0 2.0 2.0 2.0 11/17/18 11/17/18 11/17/18 11/17/18 01:24 01:54 02:24 02:54 Pulse 101 97 97 98 Resp 18 18 15 17 B/P (MAP) 109/50 (69) 119/52 (74) 118/49 (72) 113/64 (80) Pulse Ox 97 98 96 97 O2 Delivery Nasal Cannula Nasal Cannula Nasal Cannula Nasal Cannula O2 Flow Rate 2.0 2.0 2.0 2.0 11/17/18 11/17/18 11/17/18 11/17/18 03:24 03:54 04:24 04:54 Pulse 96 99 101 99 Resp 12 B/P (MAP) 99/58 (72) 121/52 (75) 133/61 (85) 135/61 (85) Pulse Ox 94 93 93 98 O2 Delivery Nasal Cannula Nasal Cannula Nasal Cannula Nasal Cannula O2 Flow Rate 2.0 2.0 2.0 2.0 11/17/18 11/17/18 11/17/18 11/17/18 05:24 05:30 05:55 06:39 Temp 99.3 Pulse 101 99 Resp 15 15 B/P (MAP) 116/52 (73) 134/56 (82) Pulse Ox 95 96 95 O2 Delivery Nasal Cannula Nasal Cannula Nasal Cannula Nasal Cannula O2 Flow Rate 2.0 2.0 2.0 2.0 11/17/18 11/17/18 11/17/18 11/17/18 07:47 07:48 07:51 08:50 Temp 97.9 Pulse 101 100 B/P (MAP) 144/57 (86) 153/65 Pulse Ox 95 O2 Delivery Nasal Cannula Nasal Cannula O2 Flow Rate 2.0 2.0 Intake and Output 11/16/18 11/16/18 11/17/18 15:00 23:00 07:00 Intake Total 1300 ml 2744.52 ml 1600 ml Output Total 3275 ml 1825 ml Balance 1300 ml -530.48 ml -225 ml YRIS DOUGLAS [employer] November 17, 2018 09:24
[2018-11-17] MEDS ORDERED: SUMAtriptan SUCCINATE 50 MG TABLET PO PRN (09:30)
[2018-11-17] MEDS ORDERED: LISINOPRIL 2.5 MG TABLET PO SCH (09:30)
[2018-11-17] MEDS: MONTELUKAST 10 MG TABLET. PO SCH (09:38)
[2018-11-17] MEDS: GABAPENTIN 300 MG CAPSULE. PO SCH (09:39)
[2018-11-17] MEDS: LACTOBACILLUS RHAMNOSUS GG 1 CAPSULE. PO SCH (09:39)
[2018-11-17] MEDS: PANTOPRAZOLE 40 MG TABLET. PO SCH (09:39)
[2018-11-17] MEDS: TOPIRAMATE 25 MG TABLET. PO SCH (09:47)
[2018-11-17] MEDS: ANASTROZOLE 1 MG TABLET PO SCH (09:47)
[2018-11-17] MEDS: cycloSPORINE 0.05% OPTH 1 DROP DROPERETTE OU SCH (09:47)
[2018-11-17] MEDS: CITALOPRAM 10 MG TABLET. PO SCH (09:47)
[2018-11-17 10:09] LABS: VANC TR 18.1 mcg/mL (10.0-20.0)
[2018-11-17] MEDS: VANCOMYCIN 1.5 GM in IV NORMAL SALINE 500ML 500 ML IV SCH (10:36)
[2018-11-17] MEDS: VANCOMYCIN PER PHARMACY MC PRN (10:51)
--- NOTE | 2018-11-17 10:51 | NUR ---
Pharmacy Vancomycin Dosing Note S:Consulted to monitor and dose vancomycin started 11/15/18. O:ANA MARÍA WELDON is a 73 year old F with Urosepsis, . Height: 5 feet, 6 inches Weight: 101.039314 kg [place] Body Weight: 59.30 Adjusted Body Weight: 76.10 Dosing Weight: Actual Other Antibiotics: CEFEPIME LABS: Last BUN: 13 Last Creatinine: 1.1 Creatinine Clearance: 56.4 Last WBC: 4.6 Last Procalcitonin: Tmax (past 24 hours): Microbiology: I/O: Drug Levels: Last Trough level: 18.1 on 11/17/18 at 0940 Last dose given 11/16/18 at 1016 Vancomycin Dosing: Loading Dose: 2000 mg x1 Dosing Weight: Actual Target Trough: 15-20 A: Based on: PHYSICIAN REQUEST FOR DOSING P: 1. Continue Vancomycin 1500 mg IV q24h 2. Follow up Trough level on 11/19/18 at 0930 3. Pharmacy will continue to monitor, follow and adjust therapy as needed. CRISTINE COLEMAN, 11/17/18 [id number]
[2018-11-17] MEDS ORDERED: ONDANSETRON PF 4 MG/2 ML VIAL. ONE (11:26)
[2018-11-17] MEDS ORDERED: ONDANSETRON PF 4 MG/2 ML VIAL. IV PRN (11:30)
--- NOTE | 2018-11-17 11:42 | NUR ---
Reaction note At 1115, this nurse went into pt's room due to call light being pressed. Pt stated her lower back hurt and was feeling nauseas. More assessment revealed that the pt is also having some apprehension, lower abdominal pain, and anxiety. Pt is tachycardic, however, this is baseline for pt. All other vitals WNL, afebrile. Pt is complaining of her generalized headache moving to the base of her skull. Dr. Elizabeth is notified and lab obtained blood bag and more labs, urine collected. Protocol for reaction started. Orders received from Dr. Elizabeth, will CTM. Addendum: 11/17/18 at 1158 by ALEIDA CERVANTES RN Pt's vitals at the time of reaction were 98.7 oral, 90 HR, 18RR, 100% 2LNC, 155/84 on the left wrist.
[2018-11-17] MEDS ORDERED: HYDROCORTISONE SOD SUCC/PF 100 MG/2 ML VIAL. IV ONE (11:45)
--- NOTE | 2018-11-17 12:27 | NUR ---
Pt states she is feeling "much better" at this time, pt still c/o lower back pain and headache, but all other symptoms have resolved. Pt appears to have no distress or discomfort at this moment. Pt's VSS, pt is upright eating lunch at this time. Will CTM.
[2018-11-17] MEDS: CEFEPIME HCL 2 GM in IV NORMAL SALINE 100ML 100 ML IV SCH (13:04)
--- NOTE | 2018-11-17 14:02 | NUR ---
Pt to be transferred to [facility] for speciality care. Awaiting bed placement. Pt and pt's family informed and verbalized understanding.
--- NOTE | 2018-11-17 14:31 | CONS ---
DATE OF CONSULTATION: 11/16/2018 REFERRING PHYSICIAN: EMI VALLEJO MD REASON FOR CONSULTATION: Severe headaches. HISTORY OF PRESENT ILLNESS: This is a 73-year-old right-handed female who was admitted through Emergency Room on 11/14/2018 after she presented with chief complaints of generalized weakness. The patient has been suffering with severe urinary tract infections for 5 days prior to this admission, but on the day of admission, she felt very weak to the point she pushed Life Alert bracelet. Subsequently, EMS was activated and found the patient with severe hypotension at 60/30. On arrival to Emergency Room, the patient complained of palpitations and lightheadedness; however, she denies chest pain and shortness of breath. She complains of generalized weakness. She denies visual disturbances. The patient also described chronic history of migraine headaches described as left-sided throbbing headaches associated with nausea and sometimes vomiting, photophobia and phonophobia. In the Emergency Room, the patient was placed on dopamine drip for severe hypertension. PAST MEDICAL HISTORY: Significant for chronic lower back pain; fracture, right hip, required repair; history of peripheral neuropathy; history of lymphoma; anxiety and depression; hypothyroidism. PAST SURGICAL HISTORY: Significant for lumbosacral spine surgery, bilateral mastectomy, status post removal of hardware and fusion of the lumbar spine, cholecystectomy and abdominal surgery. 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 She denies smoking, alcohol drinking, or illicit drug use. FAMILY HISTORY: Noncontributory. CURRENT HOME MEDICATIONS: Macrodantin 100 mg b.i.d., lisinopril 2.5 mg daily, Celebrex 100 mg daily, oxycodone 5/325 p.r.n. daily, Celexa 10 mg p.o. daily and Synthroid 25 mcg daily, levothyroxine 25 mcg daily. REVIEW OF SYSTEMS: A 10-point review of systems as mentioned above in history of present illness and consistent with chronic low back pain, recurrent headaches, and intermittent migraine headaches, lower back pain and generalized weakness. ALLERGIES: PENICILLIN. PHYSICAL EXAMINATION GENERAL: A well-developed, well-nourished female, not in acute distress. VITAL SIGNS: Blood pressure 111/62, respiratory rate 13, pulse is 90, temperature 97.8, oxygen saturation 98% on 2 liters by nasal cannula. HEENT: Normocephalic, atraumatic, otherwise unremarkable. NECK: Supple. Negative for carotid bruit, lymphadenopathy, JVD or thyromegaly. LUNGS: Clear to A and P. CARDIOVASCULAR: Regular rate and rhythm. Normal S1, S2. There is no S3, S4 or murmur. ABDOMEN: Soft. Bowel sounds positive. EXTREMITIES: Negative for cyanosis, clubbing or pitting edema. NEUROLOGIC: Mental Status: The patient is alert and oriented x 3. The speech is fluent. There is no language dysfunction. Memory: The patient recalls 2/3 immediately after 1 and 3 minutes. There is no language dysfunction. Judgment and abstracting thinking are normal. The patient denies hallucination or delusion. Visual alanis are full. The pupils are reactive to light and accommodation. The extraocular movements are intact. There is no nystagmus. There is no facial motor or sensory deficit. Hearing is intact bilaterally. The palate is elevated symmetrically. Sternocleidomastoid muscles are powerful bilaterally. The patient shrugs her shoulders symmetrically. Protrudes her tongue in the midline without fasciculation or atrophy. Motor: No focal muscle bulk was seen. The tone is normal. The strength is 4/5 throughout. Sensory: Examination revealed diminished pinprick and light touch senses in patchy distributions in both lower extremities. Deep tendon reflexes were asymmetric and hypoactive with absent Achilles responses. Gait not tested at this time. DIAGNOSTIC DATA: Initial nonenhanced head CT scan revealed new small foci or fat within the lateral ventricles. Otherwise, ruptured dermoid or epidermoid may have contributed to the current findings. No acute intracranial process. Chest CT angio revealed 2 tiny subsegmental pulmonary embolism confined to the right upper lobe and possible basilar atelectasis versus infiltrate. Lower extremity venous ultrasound was negative for deep venous thrombosis. Chest x-ray from yesterday revealed possible left lower lobe infiltrate and bilateral basilar atelectasis. LABORATORY DATA: CBC revealed white blood cells of 5100, hemoglobin 7.8, hematocrit 24, platelet count 150,000. Chemistry revealed sodium of 142, potassium 5, chloride 111, CO2 of 24, BUN 19, creatinine 1.4, glucose 81, calcium 7.9. Liver enzymes are low. T4 is normal at 6.9 and free T4 is 1.04. Urinalysis revealed positive leukocyte esterase, with white blood cells more than 40 consistent with urinary tract infections. IMPRESSION: 1. Severe headaches. 2. Longstanding history of migraine headaches. 3. Abnormal CT angio consistent with pulmonary embolism. 4. Anemia, history of lymphoma, hypertension and recently hypotension, breast cancer, chronic low back pain, depression, anxiety, and hypothyroidism. RECOMMENDATIONS: 1. We will start the patient on topiramate 25 mg b.i.d. as preventive agent for migraine headaches. 2. We will start the patient on sumatriptan 100 mg tablets to be taken immediately at the onset of migraine headaches. 3. We will continue with current management initiated by Dr. Vallejo. 4. Physical therapy evaluation. M Rom ROLAND MD DR: HAJA/char JOB#: [id number] / [id number]
--- NOTE | 2018-11-17 14:54 | DS ---
DATE OF DISCHARGE: 11/17/2018 HISTORY OF PRESENT ILLNESS: The patient is a 73-year-old female patient, who was admitted initially with altered mental status on 11/14/2018. She apparently was not feeling well and hit her Life Alert bracelet. She was noted by the emergency medical service personnel to have low blood pressure approximately in the 60s/30. She denied any chest pain or shortness of breath. She denied any other complaints except that she was fairly weak. She was evaluated in the Emergency Room, was started on IV fluid. She continued to be hypotensive and therefore she was started also on vasopressors. Ultimately, she was found to have urinary tract infection; however, also, she was found to have elevated D-dimer and initially her kidney function was impaired and was unable to do CT angio. Finally, her kidney function has improved and CT angio of the chest showed that she has pulmonary emboli in her right lung. We did start her on Lovenox. Unfortunately, her H and H started dropping and her stool for occult blood was positive. In fact on admission, her hemoglobin was 9, hematocrit was 28 and this morning, her hemoglobin dropped down to 7 and hematocrit was 21, although some of it probably hemodilution and given that she will require anticoagulation. A decision was made to transfer her to [facility] for placement of an inferior vena cava filter and to consult the Gastroenterology Team for source of GI bleed. She did also grew Escherichia coli in her urine with growth of more than 100,000 colony forming units per mL. However, the sensitivity is still pending at the time of this dictation. PHYSICAL EXAMINATION: GENERAL: When I saw her this afternoon, she looked well and was clearly in no apparent respiratory distress, pale, but no jaundice, cyanosis, or thyromegaly. No jugular venous distension. No limb edema. VITAL SIGNS: Her heart rate was 92, blood pressure was 160/85, temperature was 98.1, respiratory rate was 16, and oxygen saturation was 100% on 2 liters of oxygen by nasal cannula. HEAD, EYES, EARS, NOSE AND THROAT: Showed normocephalic, atraumatic. NECK: Supple. HEART: Showed normal first and second heart sounds. No gallop, rub or murmur. CHEST: Clear to auscultation. No crepitation or rhonchi. ABDOMEN: Distended, soft, nontender. No guarding or rigidity. No organomegaly. All hernial orifices intact. Bowel sounds normal. NEUROLOGIC: She is awake, alert, responding appropriately. All cranial nerves intact. She moves extremities without difficulty. Her intake over the last 24 hours was 3940, output was 2975. LABORATORY DATA: As of this morning, her white cell count was 4600, hemoglobin 7, hematocrit 21, MCV 89 and platelet count of 143,000. Her chemistry showed a serum sodium of 144, potassium 4.4, chloride 114, bicarbonate 21, anion gap of 9, BUN 13, creatinine 1.1, estimated GFR was 49 mL per minute. Her glucose was 66, calcium was 7.2. DISCHARGE MEDICATIONS: The patient was transferred to [facility] to continue on Zofran 4 mg IV every 6 hours, sumatriptan succinate 100 mg as needed for migraine headache, lisinopril 2.5 mg once a day, fentanyl citrate 50 mcg IV every 3 hours. We have held her apixaban. She was also started on topiramate 25 mg twice a day, lactobacillus rhamnosus 1 capsule twice a day, nystatin powder applied topically twice a day. She is on normal saline at 75 mL per hour, cefepime 1 gram IV every 12 hours, montelukast 10 mg daily at bedtime, duloxetine 60 mg once a day and anastrozole 1 mg daily, citalopram hydrobromide 10 mg once a day, acetaminophen 650 mg every 4 hours, levothyroxine 25 mcg once a day, gabapentin 600 mg twice a day, Cyclosporine 1 drop to both eyes twice a day, Protonix 40 mg twice a day, tizanidine 4 mg every 8 hours, Compazine 10 mg every 6 hours, Ambien 5 mg at bedtime and oxycodone/APAP 5/325 one tablet 3 times a day as needed for headache. FINAL DISCHARGE DIAGNOSES: 1. Altered mental status, resolved. 2. Severe sepsis, resolved. 3. Urinary tract infection with growth of Escherichia coli. 4. Pulmonary emboli. 5. Acute blood loss anemia with positive fecal occult blood. OTHER MEDICAL PROBLEMS: Include hypertension, hypothyroidism and breast cancer, status post bilateral mastectomy, bronchiectasis. EMI VALLEJO MD DR: DONALD/char JOB#: [id number] / [id number]
--- NOTE | 2018-11-17 17:15 | NUR ---
pt off the unit to [facility].
--- NOTE | 2018-11-18 04:36 | PN ---
DATE: 11/17/2018 SUBJECTIVE: The patient continues to have intermittent migraine like headaches, described as a left-sided throbbing headache associated with nausea, photophobia and phonophobia. The patient did have these headaches yesterday and she received Sumatriptan with a good response. She was placed on topiramate 25 mg twice a day, but today there is no continuation of the above medications. OBJECTIVE: GENERAL: Well-developed and well-nourished female, not in acute distress. VITAL SIGNS: Blood pressure 153/65, respiratory rate 15, pulse is 100, temperature 97.9, and oxygen saturation is 95% on 2 liters per nasal cannula. HEENT: Normocephalic, atraumatic, otherwise unremarkable. NECK: Supple. Negative for carotid bruit, lymphadenopathy, or thyromegaly. LUNGS: Clear to A and P. CARDIOVASCULAR: Regular rate and rhythm, normal S1, S2. ABDOMEN: Soft. Bowel sounds positive. EXTREMITIES: Negative for cyanosis, clubbing, or pedal edema. NEUROLOGICAL EXAMINATION: The patient is alert and oriented x3. Speech is clear. There is no language dysfunction. Cranial nerves are intact. No focal motor or sensory deficits. Deep tendon reflexes are symmetric and active without pathology responses. Gait is not tested. LABORATORY DATA: CBC reviewed. White blood cells of 4.6, hemoglobin 7, hematocrit 21.7, and platelet count 143,000. Chemistry: Sodium 144, potassium 4.4, chloride 114, CO2 of 21, BUN 13, creatinine 1.1, glucose 66, and calcium is 7.2. IMPRESSION: 1. Longstanding history of migraine headaches, intermixed with tension headache, improved with migraine medications as sumatriptan. 2. Severe anemia, required blood transfusion. 3. Urinary tract infections. 4. Recent severe hypotension with generalized weakness - resolved. 5. Pulmonary embolism, on Eliquis. RECOMMENDATIONS: 1. Continue with current management initiated by Dr. Elizabeth. 2. Continue with current management for migraine headaches with sumatriptan and topiramate. M Rom ROLAND MD DR: HAJA/char JOB#: [id number] / [id number]
[2018-11-21] MEDS ORDERED: NON FORMULARY ITEM (Alendronate Sodium (Fosamax) 1 TAB) PO SCH (09:00)
== END 2018-11-17 17:16 | disposition short-term general hospital (02) | DRG 871 ==
LOC: ER 09:10 → ICU 13:16
PROVIDERS: ADMIT Family Medicine; ATTEND Internal Medicine
DX: A41.9 Sepsis, unspecified organism (principal); I26.99 Other pulmonary embolism without acute cor pulmonale; N39.0 Urinary tract infection, site not specified; N17.9 Acute kidney failure, unspecified; D62 Acute posthemorrhagic anemia; K92.2 Gastrointestinal hemorrhage, unspecified; N18.4 Chronic kidney disease, stage 4 (severe); B96.20 Unspecified Escherichia coli [E. coli] as the cause of diseases classified elsewhere; D50.9 Iron deficiency anemia, unspecified; E03.9 Hypothyroidism, unspecified; E86.0 Dehydration; G43.909 Migraine, unspecified, not intractable, without status migrainosus; I12.9 Hypertensive chronic kidney disease with stage 1 through stage 4 chronic kidney disease, or unspecified chronic kidney disease; K21.9 Gastro-esophageal reflux disease without esophagitis; R09.02 Hypoxemia; F32.9 Major depressive disorder, single episode, unspecified; F41.9 Anxiety disorder, unspecified; G89.29 Other chronic pain; G62.9 Polyneuropathy, unspecified; E66.9 Obesity, unspecified; R65.20 Severe sepsis without septic shock; Z79.899 Other long term (current) drug therapy; Z85.3 Personal history of malignant neoplasm of breast; Z85.72 Personal history of non-Hodgkin lymphomas; Z86.711 Personal history of pulmonary embolism; Z87.820 Personal history of traumatic brain injury; Z90.13 Acquired absence of bilateral breasts and nipples; Z68.36 Body mass index [BMI] 36.0-36.9, adult; Z90.49 Acquired absence of other specified parts of digestive tract; Z88.0 Allergy status to penicillin
CPT/HCPCS: 36415; 36569; 51702; 70450; 71045; 71275; 80048; 80053; 80076; 80202; 81001; 82274; 82607; 83540; 83550; 83605; 83735; 84145; 84436; 84439; 84443; 84481; 84484; 85007; 85025; 85027; 85379; 86078; 86850; 86900; 86901; 86920; 87040; 87086; 87186; 87641; 93005; 93306; 93970; 96360; J0692; J1265; J1650; J2405; J3010; J3370; J7040; J7050; P9016; Q0162; Q0164; Q9967; 99285-25; J7030

== ENCOUNTER → 2019-02-07 | Outpatient (CLI) | payer MEDICARE, OTHER ==
[2018-11-17 14:06] VITALS: BP 164/109
[~2019-02-07] MED LIST changes: +ALEN70TA3 PO; +ANAS1TAB47 PO; +ASPI325T8 PO; +CYCL1DRO EACHEYE; +DULO60CA6 PO; +GABA600T PO; +LEVO5TAB29 PO; +MONT10TA80 PO; +PROC10TA57 PO; +TIZA4TAB8 PO; +ZOLP5TAB PO
--- NOTE | 2019-02-07 16:49 | RAD ---
EXAM: Chest, 2 views. HISTORY: Preoperative evaluation. Pain. COMPARISON: None. FINDINGS: 2 views of chest are obtained. There is no infiltrate, pleural effusion or pneumothorax. The heart is normal in size. There are bilateral axillary clips. There is suspected lingular and left lower lobe atelectasis or scarring. IMPRESSION: 1. No acute pulmonary finding. 2. Suspected lingular and left lower lobe atelectasis or scarring. Electronically signed by: Jazlyn Martinez MD (02/07/2019 4:46 PM) [place] [id number]
== END | disposition home or self-care (01) ==
LOC: DXRAD 16:23
PROVIDERS: ATTEND Physician Assistant Medical
DX: M51.36 Other intervertebral disc degeneration, lumbar region (principal)
CPT/HCPCS: 71046

== ENCOUNTER 2019-04-08 19:25 | Inpatient (IN) | payer MEDICARE, OTHER ==
[~2019-04-08] VITALS: Ht 167.6 cm; Wt 100.3 kg
[2019-04-08 00:30] VITALS: BP 108/55
[2019-04-08 20:00] LABS: BASO % 0 % (0-3); EOS # 0.2 x10^3/uL (0.0-0.7); EOS % 2 % (0-3); HEMATOCRIT 29.5 % (36.0-47.0); HEMOGLOBIN 9.5 g/dL (12.0-15.5); LYMPH % 12 % (24-48); MEAN CORPUSCULAR HEMOGLOBIN 30 pg (25-35); MEAN CORPUSCULAR HGB CONC 32 g/dL (31-37); MEAN CORPUSCULAR VOLUME 92 fL (79-100); MONO # 0.6 x10^3/uL (0.0-1.1); MONO % 8 % (0-9); NEUT # 6.6 x10^3uL (1.8-7.7); NEUT % 78 % (31-73); PLATELET COUNT 171 x10^3/uL (140-400); RED BLOOD COUNT 3.22 x10^6/uL (3.50-5.40); RED CELL DISTRIBUTION WIDTH 15.4 % (11.5-14.5); WHITE BLOOD COUNT 8.4 x10^3/uL (4.0-11.0)
[2019-04-08] MEDS ORDERED: CEFEPIME HCL 2 GM in IV NORMAL SALINE 100ML 100 ML IV ONE (20:00)
[2019-04-08 20:16] LABS: ALBUMIN 2.7 g/dL (3.4-5.0); ALBUMIN/GLOBULIN RATIO 0.9 (1.0-1.7); CALCIUM 7.7 mg/dL (8.5-10.1); CREATININE 2.6 mg/dL (0.6-1.0); GFR 18.1; POTASSIUM 5.2 mmol/L (3.5-5.1); TOTAL BILIRUBIN 0.2 mg/dL (0.2-1.0); TOTAL PROTEIN 5.8 g/dL (6.4-8.2)
[2019-04-08 20:17] LABS: BILIRUBIN,URINE NEG (NEG); CLARITY,URINE CLEAR; COLOR,URINE YELLOW; GLUCOSE,URINE NEG (NEG)
[2019-04-08 20:18] LABS: AMORPHOUS SEDIMENT,UR PRESENT /HPF; BACTERIA,URINE FEW /HPF (0-FEW); HYALINE CASTS, URINE FEW /HPF; NITRITE,URINE NEG (NEG); RBC,URINE 0 /HPF (0-2); SQUAMOUS EPITHELIAL CELL,UR FEW /LPF; UROBILINOGEN,URINE 0.2 mg/dL (0.2 mg/dL); WBC,URINE 0 /HPF (0-4)
[2019-04-08] MEDS ORDERED: IV NORMAL SALINE 100ML 100 ML ONE (20:18)
[2019-04-08] MEDS ORDERED: CEFEPIME HCL 2 GM VIAL IV ONE (20:18)
[2019-04-08] MEDS ORDERED: IV NORMAL SALINE 1,000ML 1,000 ML IV SCH (20:24)
--- NOTE | 2019-04-08 20:36 | RAD ---
PQRS Compliance statement: One or more of the following individualized dose reduction techniques were utilized for this examination: 1. Automated exposure control. 2. Adjustment of the mA and/or kV according to patient size. 3. Use of iterative reconstruction technique. Indication:Altered mental status. TECHNIQUE: CT head without IV contrast COMPARISON:None FINDINGS: No pathologic extra-axial or intra-axial fluid collection. The ventricles and basal cisterns are within normal limits. No acute intracranial bleed. No focal loss of wynn-white differentiation. Visualized orbits are within normal limits. No suspicious calvarial lesion. Visualized paranasal sinuses and mastoid air cells are clear. IMPRESSION: No acute intracranial process on this noncontrast CT. If concern for acute ischemic stroke is high, please consider MRI brain. Indication:Hypotension. Weakness. TECHNIQUE:Portable AP chest X-ray COMPARISON: Study from 02/07/2019 FINDINGS: Heart is normal in size. Lungs are hyperinflated. Scarring is seen in the lingula. Subsegmental atelectasis in the right lung base. No pneumothorax or pleural effusion. Visualized bony thorax within normal limits. Bilateral axillary lymph node dissection changes. IMPRESSION: Stable left lung base/lingular scarring or subsegmental atelectasis. New subsegmental atelectasis in the right lung base. Electronically signed by: Chaka Schroeder DO (04/08/2019 8:33 PM) [facility]
--- NOTE | 2019-04-08 22:23 | RAD ---
CT chest abdomen pelvis without contrast dated 04/08/2019. Comparison made to 10/28/2017. CLINICAL INDICATION: Hypotensive. Possible sepsis. Evaluate for infection. TECHNIQUE: Contiguous axial imaging the chest abdomen pelvis performed without the administration of IV or oral contrast. FINDINGS: Heart size is mildly enlarged. No pericardial effusion. Prominent calcification of the aortic valve with scattered coronary calcifications. There are borderline enlarged precarinal and subcarinal lymph nodes measuring up to 10 mm short axis. No axillary or hilar adenopathy is apparent. The thyroid gland is unremarkable. There is patchy airspace disease in the lower lobes, left greater than right. Tiny left pleural effusion. Central airways are patent. There is diffuse bronchial wall thickening. No pneumothorax. Solid abdominal viscera not well evaluated in the absence of contrast material. No apparent attenuation abnormality of the liver or spleen. Gallbladder is surgically absent. Adrenal glands and kidneys are unremarkable. No stone or hydronephrosis. Unopacified GI tract normal in caliber and contour. No apparent bowel wall thickening. The appendix is not clearly identified and may be surgically absent. No inflammatory changes in the right lower quadrant. There is evidence of prior gastric bypass. Images the pelvis show nondistended urinary bladder. There is mild diffuse bladder wall thickening. Small amount of free pelvic fluid. The uterus is poorly visualized and likely atrophic. No pelvic adenopathy. Bone windows show no acute findings. Multilevel spondylosis. There is evidence of prior laminectomy from L3 to the sacrum. There is a fluid collection in the paraspinous soft tissues m posterior to the laminectomy site that measures up to 7 cm craniocaudal dimension, incompletely evaluated. There is lytic and sclerotic changes of the left iliac bone IMPRESSION: 1. Patchy and linear bibasilar airspace disease, left greater than right, atelectasis versus pneumonia. There is a tiny left pleural effusion. 2. Borderline enlarged mediastinal lymph nodes, nonspecific. 3. No apparent acute abnormality of abdomen or pelvis. 4. Small amount of free pelvic fluid, nonspecific. 5. Status post laminectomy from L3 to the sacrum. There is a fluid collection in the paraspinous soft tissues posterior to the laminectomy site which is of uncertain etiology. This could represent a postoperative seroma or hematoma. Abscess is not excluded. Correlate clinically. Electronically signed by: Sam Vasquez MD (04/08/2019 10:20 PM) [facility]
[2019-04-08] MEDS ORDERED: VANCOMYCIN PER PHARMACY MC PRN (22:45)
[2019-04-08] MEDS ORDERED: VANCOMYCIN 2 GM in IV NORMAL SALINE 500ML 500 ML IV ONE (23:00)
--- NOTE | 2019-04-08 23:17 | EKG ---
[address] [address] Test Date: 2019-04-08 Test Time: 20:46:44 Pat Name: ANA MARÍA WELDON Department: Room: Gender: F Swedger: : 1945 Requested By: MAINOR HAIR Order Number: [id number] Reading MD: Sj Munoz MD Measurements Intervals [place] Rate: 61 P: 59 MD: 162 QRS: 41 QRSD: 114 T: 13 QT: 412 QTc: 420 Interpretive Statements SINUS RHYTHM RBBB Electronically Signed On 04-19-2019 10:15:11 CDT by Sj Munoz MD
--- NOTE | 2019-04-08 23:17 | PHYS DOC ---
Past History Past Medical History: Cancer, Depression, High Cholesterol, Hypertension, Hypothyroid Past Surgical History: Cancer Surgery, Cholecystectomy, Other Additional Past Surgical Histo: back sx one month ago Alcohol Use: None Drug Use: None Adult General Chief Complaint Chief Complaint: HYPOTENSION HPI HPI Patient is a 73 YO female who is presenting to the emergency room with a chief complaint of low blood pressure she has generalized weakness for the last 2 days blood pressure was in the 70s she did fall a couple days ago. Both her knees since that time she has had increasing weakness. She is having increasing back pain as well for the last few days she had a fusion back in February she denies abdominal pain she had some diarrhea yesterday as well but that seems to have stopped. Positive nausea no vomiting really no shortness of breath or chest pain she does not think she hit her head but she is not entirely sure. Of note she doesn't history of urosepsis as well as PE in the past she is not on anticoagulation according to the daughter at this time Review of Systems Review of Systems Constitutional: Denies fever or chills [] Eyes: Denies change in visual acuity, redness, or eye pain [] HENT: Denies nasal congestion or sore throat [] Respiratory: Denies cough or shortness of breath Integument: Denies rash or skin lesions [] All other systems were reviewed and found to be within normal limits, except as documented in this note. Current Medications Current Medications Current Medications Medications (Trade) Dose Ordered Sig/Natalee Start Time Stop Time Status Last Admin Dose Admin Cefepime HCl (Maxipime) 2 gm STK-MED ONCE 04/08/19 20:18 04/08/19 20:18 DC Cefepime HCl 2 gm/ Sodium Chloride 100 ml @ 200 mls/hr Q8HRS 04/09/19 06:00 Sodium Chloride 1,000 ml @ 100 mls/hr Q10H 04/08/19 22:42 04/09/19 22:41 Vancomycin HCl (Vanco Per Pharmacy) 1 each PRN DAILY PRN 04/08/19 22:45 Vancomycin HCl 2 gm/Sodium Chloride 500 ml @ 250 mls/hr 1X ONCE 04/08/19 23:00 04/09/19 00:59 Allergies Allergies Allergies Coded Allergies Type Severity Reaction Last Updated Verified Penicillins Allergy Severe 08/01/15 Yes ciprofloxacin Allergy Unknown 04/08/19 Yes Physical Exam Physical Exam Constitutional: Well developed, well nourished, no acute distress, non-toxic appearance. [] HENT: Normocephalic, atraumatic, bilateral external ears normal, oropharynx dry, no oral exudates, nose normal. [] Eyes: PERRLA, EOMI, conjunctiva normal, no discharge. [] Neck: Normal range of motion, no tenderness, supple, no stridor. [] Cardiovascular:Heart rate regular rhythm, no murmur [] Lungs & Thorax: Bilateral breath sounds clear to auscultation []rhonchi at the right lung base Abdomen: Bowel sounds normal, soft, no tenderness, no masses, no pulsatile masses. [] Skin: Warm, dry, no erythema, no rash. [] Mild pallor is noted Back: No tenderness, no CVA tenderness. [] There is a well-healed lateral sort of ASIS area surgical incision from her recent fusion no edema or induration or fluctuance there Extremities: No tenderness, no cyanosis, no clubbing, ROM intact, no edema. [] Abrasions bilateral knees Neurologic: Alert and oriented X 3, normal motor function, normal sensory function, no focal deficits noted. [] Psychologic: Affect normal, judgement normal, mood normal. [] Current Patient Data Vital Signs Vital Signs Date Time Temp Pulse Resp B/P (MAP) Pulse Ox O2 Delivery O2 Flow Rate FiO2 04/08/19 22:47 67 18 97/50 (66) 98 Room Air 04/08/19 19:55 98.1 Lab Results Laboratory Tests Test 04/08/19 19:40 04/08/19 19:45 White Blood Count 8.4 x10^3/uL (4.0-11.0) Red Blood Count 3.22 x10^6/uL (3.50-5.40) L Hemoglobin 9.5 g/dL (12.0-15.5) L Hematocrit 29.5 % (36.0-47.0) L Mean Corpuscular Volume 92 fL (79-100) Mean Corpuscular Hemoglobin 30 pg (25-35) Mean Corpuscular Hemoglobin Concent 32 g/dL (31-37) Red Cell Distribution Width 15.4 % (11.5-14.5) H Platelet Count 171 x10^3/uL (140-400) Neutrophils (%) (Auto) 78 % (31-73) H Lymphocytes (%) (Auto) 12 % (24-48) L Monocytes (%) (Auto) 8 % (0-9) Eosinophils (%) (Auto) 2 % (0-3) Basophils (%) (Auto) 0 % (0-3) Neutrophils # (Auto) 6.6 x10^3uL (1.8-7.7) Lymphocytes # (Auto) 1.0 x10^3/uL (1.0-4.8) Monocytes # (Auto) 0.6 x10^3/uL (0.0-1.1) Eosinophils # (Auto) 0.2 x10^3/uL (0.0-0.7) Basophils # (Auto) 0.0 x10^3/uL (0.0-0.2) Sodium Level 134 mmol/L (136-145) L Potassium Level 5.2 mmol/L (3.5-5.1) H Chloride Level 102 mmol/L (98-107) Carbon Dioxide Level 22 mmol/L (21-32) Anion Gap 10 (6-14) Blood Urea Nitrogen 43 mg/dL (7-20) H Creatinine 2.6 mg/dL (0.6-1.0) H Estimated GFR (Cockcroft-Gault) 18.1 BUN/Creatinine Ratio 17 (6-20) Glucose Level 89 mg/dL (70-99) Lactic Acid Level 1.0 mmol/L (0.4-2.0) Calcium Level 7.7 mg/dL (8.5-10.1) L Total Bilirubin 0.2 mg/dL (0.2-1.0) Aspartate Amino Transferase (AST) 15 U/L (15-37) Alanine Aminotransferase (ALT) 13 U/L (14-59) L Alkaline Phosphatase 96 U/L (46-116) Troponin I Quantitative < 0.017 ng/mL (0-0.055) Total Protein 5.8 g/dL (6.4-8.2) L Albumin 2.7 g/dL (3.4-5.0) L Albumin/Globulin Ratio 0.9 (1.0-1.7) L Lipase 43 U/L (73-393) L Urine Collection Type U cath Urine Color Yellow Urine Clarity Clear Urine pH 5.0 Urine Specific [place]ourt 1.015 Urine Protein Neg (NEG-TRACE) Urine Glucose (UA) Neg mg/dL (NEG) Urine Ketones (Stick) Neg mg/dL (NEG) Urine Blood Neg (NEG) Urine Nitrite Neg (NEG) Urine Bilirubin Neg (NEG) Urine Urobilinogen Dipstick 0.2 mg/dL (0.2 mg/dL) Urine Leukocyte Esterase Neg (NEG) Urine RBC 0 /HPF (0-2) Urine WBC 0 /HPF (0-4) Urine Squamous Epithelial Cells Few /LPF Urine Amorphous Sediment Present /HPF Urine Bacteria Few /HPF (0-FEW) Urine Hyaline Casts Few /HPF Urine Mucus Mod /LPF EKG EKG []Normal sinus rhythm rate of 61 there are some nonspecific ST changes no STEMI Radiology/Procedures Radiology/Procedures [] Heart size is mildly enlarged. No pericardial effusion. Prominent calcification of the aortic valve with scattered coronary calcifications. There are borderline enlarged precarinal and subcarinal lymph nodes measuring up to 10 mm short axis. No axillary or hilar adenopathy is apparent. The thyroid gland is unremarkable. There is patchy airspace disease in the lower lobes, left greater than right. Tiny left pleural effusion. Central airways are patent. There is diffuse bronchial wall thickening. No pneumothorax. Solid abdominal viscera not well evaluated in the absence of contrast material. No apparent attenuation abnormality of the liver or spleen. Gallbladder is surgically absent. Adrenal glands and kidneys are unremarkable. No stone or hydronephrosis. Unopacified GI tract normal in caliber and contour. No apparent bowel wall thickening. The appendix is not clearly identified and may be surgically absent. No inflammatory changes in the right lower quadrant. There is evidence of prior gastric bypass. Images the pelvis show nondistended urinary bladder. There is mild diffuse bladder wall thickening. Small amount of free pelvic fluid. The uterus is poorly visualized and likely atrophic. No pelvic adenopathy. Bone windows show no acute findings. Multilevel spondylosis. There is evidence of prior laminectomy from L3 to the sacrum. There is a fluid collection in the paraspinous soft tissues m posterior to the laminectomy site that measures up to 7 cm craniocaudal dimension, incompletely evaluated. There is lytic and sclerotic changes of the left iliac bone IMPRESSION: 1. Patchy and linear bibasilar airspace disease, left greater than right, atelectasis versus pneumonia. There is a tiny left pleural effusion. 2. Borderline enlarged mediastinal lymph nodes, nonspecific. 3. No apparent acute abnormality of abdomen or pelvis. 4. Small amount of free pelvic fluid, nonspecific. 5. Status post laminectomy from L3 to the sacrum. There is a fluid collection in the paraspinous soft tissues posterior to the laminectomy site which is of uncertain etiology. This could represent a postoperative seroma or hematoma. Abscess is not excluded. Correlate clinically. Electronically signed by: Sam Vasquez MD (04/08/2019 10:20 PM) [facility] DICTATED AND SIGNED BY: SAM VASQUEZ MD DATE: 04/08/192219 CC: MAINOR HAIR MD; SANTO CAN ~ Impressions: FINDINGS: Heart is normal in size. Lungs are hyperinflated. Scarring is seen in the lingula. Subsegmental atelectasis in the right lung base. No pneumothorax or pleural effusion. Visualized bony thorax within normal limits. Bilateral axillary lymph node dissection changes. IMPRESSION: Stable left lung base/lingular scarring or subsegmental atelectasis. New subsegmental atelectasis in the right lung base. Electronically signed by: Chaka Schroeder DO (04/08/2019 8:33 PM) [facility] Course & Med Decision Making Course & Med Decision Making Pertinent Labs and Imaging studies reviewed. (See chart for details) []I discussed the CT results with Dr. Nicolas at 10:30 PM ACCEPTS admission here at [facility] ER COURSE: There is initially blood pressure in the mid 70s and went down as low as 62/32 at one point however after 2 L of fluid nearly completed at 11 PM the blood pressure is 97/51 did go up as high as 104 systolic map was greater than 65 patient starts to look a little better in the emergency room the blood pressure is definitely trending up in general I do not think that she needs a central line at this time Lactic acid was within normal limits white blood cell count normal hemoglobin is above the previous number creatinine is up to 2.6 from a baseline of 1.1 with a mild elevation in potassium with no obvious EKG changes to that effect. CT scan noted above did show pneumonia patient was treated with vancomycin and cefepime in the emergency room as well as the 30 mL per kilo of fluids. Use ideal body weight due to BMI greater than 30 a sepsis reassessment was performed and patient had improved skin color and as well as improved mental status after a fluid bolus including higher blood pressure as well too. Capillary refill was less than 3 seconds cardiopulmonary exam was unchanged Minutes fluid was ordered as well overnight. Regarding the fluid collection behind the paraspinous muscles I suspect this is a seroma given the clinical findings on her back exam nevertheless I did speak with Dr. Nicolas about this perhaps a CT scan with contrast to be performed once the creatinine improves. In addition blood cultures pending as well that will help Critical care time was 35 minutes exclusive of procedures. Dragon Disclaimer Dragon Disclaimer This electronic medical record was generated, in whole or in part, using a voice recognition dictation system. Departure Departure: Impression: Primary Impression: Sepsis Disposition: ADMITTED INPATIENT Admitting Physician: Solis Elizabeth Condition: STABLE Referrals: SANTO CAN (PCP) MAINOR HAIR MD Apr 08, 2019 23:17
[2019-04-09] VITALS (15 sets, daily range): BP systolic 83–132; BP diastolic 41–69
[2019-04-09] MEDS: IV NORMAL SALINE 1,000ML 1,000 ML IV SCH ×2 (00:05→11:25)
[2019-04-09] MEDS ORDERED: REFRESH OU (00:25)
[2019-04-09] MEDS ORDERED: LISI-334 PO (00:25)
[2019-04-09] MEDS ORDERED: OXYC1TAB22 PO (00:25)
[2019-04-09] MEDS ORDERED: oxyCODONE/APAP 10/325 1 TAB TABLET PO PRN ×2 (01:00→11:30)
[2019-04-09] MEDS ORDERED: GABAPENTIN 300 MG CAPSULE. PO ONE (01:00)
[2019-04-09] MEDS ORDERED: ZOLPIDEM 5 MG TABLET. PO PRN ×2 (01:00→11:30)
[2019-04-09] MEDS ORDERED: tiZANidine 4 MG TABLET. PO PRN ×2 (01:00→11:30)
[2019-04-09] MEDS ORDERED: CEFEPIME HCL 2 GM in IV NORMAL SALINE 100ML 100 ML IV SCH (06:00)
[2019-04-09 06:58] LABS: BASO % 0 % (0-3); EOS # 0.1 x10^3/uL (0.0-0.7); EOS % 2 % (0-3); HEMATOCRIT 25.6 % (36.0-47.0); HEMOGLOBIN 8.3 g/dL (12.0-15.5); LYMPH # 0.7 x10^3/uL (1.0-4.8); LYMPH % 10 % (24-48); MEAN CORPUSCULAR HEMOGLOBIN 30 pg (25-35); MEAN CORPUSCULAR HGB CONC 32 g/dL (31-37); MEAN CORPUSCULAR VOLUME 93 fL (79-100); MONO # 0.5 x10^3/uL (0.0-1.1); MONO % 7 % (0-9); NEUT # 5.9 x10^3uL (1.8-7.7); NEUT % 81 % (31-73); PLATELET COUNT 135 x10^3/uL (140-400); RED BLOOD COUNT 2.76 x10^6/uL (3.50-5.40); RED CELL DISTRIBUTION WIDTH 15.3 % (11.5-14.5); WHITE BLOOD COUNT 7.3 x10^3/uL (4.0-11.0)
[2019-04-09 07:12] LABS: ALBUMIN 2.2 g/dL (3.4-5.0); ALBUMIN/GLOBULIN RATIO 0.7 (1.0-1.7); CALCIUM 7.3 mg/dL (8.5-10.1); GFR 24.6; POTASSIUM 5.1 mmol/L (3.5-5.1); TOTAL BILIRUBIN 0.3 mg/dL (0.2-1.0); TOTAL PROTEIN 5.4 g/dL (6.4-8.2)
[2019-04-09] MEDS ORDERED: LACTOBACILLUS RHAMNOSUS GG 1 CAPSULE. PO SCH (09:00)
[2019-04-09] MEDS ORDERED: PROMETHAZINE 25 MG TABLET. PO PRN (09:15)
[2019-04-09] MEDS ORDERED: VANCOMYCIN PER PHARMACY MC PRN (11:45)
[2019-04-09] MEDS ORDERED: POLYVINYL ALCOHOL/POVIDONE/PF OPHTH SOLUTION DROPERETTE. OU PRN (12:30)
[2019-04-09] MEDS ORDERED: PANTOPRAZOLE 40 MG TABLET. PO SCH (13:00)
[2019-04-09] MEDS ORDERED: CITALOPRAM 10 MG TABLET. PO SCH (13:00)
[2019-04-09] MEDS ORDERED: DULoxetine HCL 60 MG CAPSULE.DR PO SCH (13:00)
[2019-04-09] MEDS ORDERED: MONTELUKAST 10 MG TABLET. PO SCH (13:00)
[2019-04-09] MEDS ORDERED: ASPIRIN 325 MG TABLET PO SCH (13:00)
[2019-04-09] MEDS ORDERED: GABAPENTIN 300 MG CAPSULE. PO SCH (13:00)
[2019-04-09] MEDS ORDERED: ONDANSETRON ODT 4 MG TAB.RAPDIS PO SCH (14:00)
[2019-04-09] MEDS ORDERED: cycloSPORINE 0.05% OPTH 1 DROP DROPERETTE OU SCH (21:00)
[2019-04-09] MEDS ORDERED: VANCOMYCIN 1.5 GM in IV NORMAL SALINE 500ML 500 ML IV SCH (23:00)
[2019-04-10] MEDS ORDERED: LEVOTHYROXINE 75 MCG TABLET PO SCH (06:00)
[2019-04-10] MEDS ORDERED: CITALOPRAM 20 MG TABLET. PO SCH (09:00)
[2019-04-10] MEDS ORDERED: LISINOPRIL 20 MG TABLET PO SCH (09:00)
--- NOTE | 2019-04-11 09:17 | HP ---
ADMIT DATE: 04/08/2019 HISTORY OF PRESENT ILLNESS: The patient is a 73-year-old female patient who presented to the Emergency Room with chief complaint of a low blood pressure and generalized weakness that has been going on for the last 2 days. Apparently, her blood pressure was in 70s and ____ when she was sitting on a toilet seat and apparently slipped and fell forward, bruising her knees. She has to crawl to open the door for the emergency medical service personnel; however, she refused to come to the hospital at that time and stayed home. She apparently complained of increasing back pain as well as over the last few days and she has a fusion in her back from the last February. She has also some nausea, but no vomiting. She has a history of urosepsis before as well as pulmonary embolism in the past and she is not on anticoagulation according to her daughter at this time. She was extensively investigated in the Emergency Room and has had lab work that includes a CBC and CMP together with lactic acid and urinalysis. She has had also a CT scan of the chest, abdomen and pelvis, which showed that she has a patchy and linear bibasilar airspace disease, left greater than right atelectasis versus pneumonia. There is also a tiny left pleural effusion. She has borderline enlarged mediastinal lymph nodes. She has no apparent acute abnormality of the abdomen and pelvis, small amount of free pelvic fluid, nonspecific. She is also status post laminectomy from L3 through the sacrum. There is a fluid collection in the paraspinous soft tissue posterior to the laminectomy site, which is of uncertain etiology. This could represent postoperative seroma, hematoma and abscess is not excluded. The patient was admitted to the ICU with sepsis. She apparently has received 2 liters of fluids in the Emergency Room and was started on vancomycin and cefepime. PAST MEDICAL HISTORY: Significant for previous history of urinary tract infection with growth of Escherichia coli, severe sepsis secondary to urinary tract infection that has resolved, acute blood loss anemia, pulmonary embolism. She also is known to have hypertension, hypothyroidism, chronic kidney disease, bronchiectasis, history of hydronephrosis. PAST SURGICAL HISTORY: Significant for cholecystectomy, abdominal surgery. She has also multiple operations in her back with removal of hardware and fusion of the lumbar spine. ALLERGIES: She is allergic to PENICILLIN. She is also allergic to CIPROFLOXACIN. FAMILY HISTORY: Noncontributory. SOCIAL HISTORY: She is apparently . She does not smoke, drink alcohol or use recreational drugs. Her currently lives at assisted living. She is a retired physical therapist, used to work at [employer]. Her code status is full. MEDICATIONS: She is currently on following medications: She is on promethazine for Phenergan 25 mg rectally q. 8 hours, Xyzal 1 tablet once a day, tizanidine (Zanaflex) 4 mg every 8 hours, lisinopril 20 mg once a day, aspirin 325 mg once a day. She is on Percocet 10/325 one tablet every 6 hours, gabapentin 600 mg twice a day, citalopram hydrobromide 20 mg daily, duloxetine or Cymbalta 60 mg once a day, Ambien 10 mg at bedtime, ____ mg at bedtime, cyclosporine or Restasis 1 drop to both eyes twice a day, ondansetron 4 mg sublingually every 8 hours, Protonix 40 mg twice a day, and levothyroxine 25 mcg once a day. REVIEW OF SYSTEMS: The patient denied any blurring of vision, cataract, glaucoma or macular degeneration. Denied any earache, tinnitus or sensorineural deafness. Denied any nosebleeds, stuffy nose or postnasal drip. Denied any sore throat, sore tongue, toothache, hoarseness of voice. Denied any nausea, vomiting, diarrhea, constipation. Denied hematemesis, melena, hematochezia. Did complain of frequency, but denied any dysuria or hematuria. PHYSICAL EXAMINATION: GENERAL: On arrival to the Emergency Room, she looked well and was clearly in no apparent respiratory distress. She was pale, but no jaundice, cyanosis or thyromegaly. No jugular venous distention. No limb edema. VITAL SIGNS: Her heart rate was ____, blood pressure 108/55, temperature 97.8, respiratory rate of 16, oxygen was 97%. HEAD, EYES, EARS, NOSE AND THROAT: Showed normocephalic, atraumatic. NECK: Supple. ABDOMEN: Distended, soft, nontender. No guarding or rigidity. No organomegaly. All hernial orifice intact. Bowel sounds normal. NEUROLOGIC: She is awake, alert, responding appropriately. All cranial nerves are intact. EXTREMITIES: She moves extremities without difficulty. SKIN: Showed that she had multiple bruises over both knee joints and back surgery showed no evidence of any redness, tenderness or discharge. LABORATORY DATA: While in the Emergency Room showed a white cell count of 8400, hemoglobin 9.5, hematocrit 29.5, MCV 92, and platelet count 171,000. Her serum sodium 134, potassium 5.2, chloride 102, bicarbonate 21, anion gap of 10, BUN 43, creatinine 2.6, estimated GFR was 80 mL per minute. Her glucose was 89, calcium was 7.7. Total bilirubin, AST, ALT, alkaline phosphatase were normal. Total protein was 5.8, albumin 2.7. Serum lipase was 43 ____. White cell count was 8400, hemoglobin 9.5, hematocrit 29.5, MCV 92, and platelet count 171,000 with a manual differential of 78%. Urinalysis showed the urine was yellow, clear with a pH of 5, specific gravity of 1.015. The urine was negative for protein, glucose, ketones, blood, nitrite and leukocyte esterase. There are no rbc's, no wbc's, very few bacteria. The patient has had chest x-ray. CT scan of the head showed that the patient has no pathologic extra-axial or intra-axial fluid collection. Ventricles and basal cisterns are within normal limits. No acute intracranial bleed, no focal loss of wynn-white differentiation. Visualized orbits are within normal limits and suspicious calvarial lesion visualized. Paranasal sinuses and mastoid air cells are clear. The patient has subsegmental atelectasis ____. She has had a CT scan of the chest, abdomen and pelvis without contrast, which showed that there is patchy and linear bibasilar airspace disease, left greater than right atelectasis versus pneumonia. There is a tiny left pleural effusion. The patient has borderline enlarged mediastinal lymph node, which are nonspecific. She has no acute abnormality in the abdomen and pelvis. She has small amount of free pelvic fluid that is nonspecific chest. She is status post laminectomy from 3 to the sacrum and there is a fluid collection in the paraspinal soft tissue posterior to the laminectomy site, which is of uncertain etiology. Obviously, this could represent postoperative seroma, hematoma and/or abscess. Apparently, the patient has had 2 liters of fluid while in the Emergency Room. She was started on vancomycin and cefepime. She obviously has hypotension, questionable sepsis, although her lactic acid is only 1. Source of infection is probably lung and has bilateral pulmonary infiltrate and also ____ surgical site in the lower lumbar spine. PLAN: My plan is to continue with IV antibiotics, continue IV fluid, continue with pain management and we will monitor her closely and I will contact her doctor ____. DICTATION ENDS ABRUPTLY. EMI VALLEJO MD DR: DONALD/char JOB#: [id number] / [id number]
== END 2019-04-09 15:05 | disposition short-term general hospital (02) | DRG 871 ==
LOC: ER 19:25 → ICU 22:44
PROVIDERS: ADMIT Internal Medicine; ATTEND Internal Medicine
DX: A41.9 Sepsis, unspecified organism (principal); J18.9 Pneumonia, unspecified organism; E03.9 Hypothyroidism, unspecified; E78.00 Pure hypercholesterolemia, unspecified; I95.9 Hypotension, unspecified; F32.9 Major depressive disorder, single episode, unspecified; I12.9 Hypertensive chronic kidney disease with stage 1 through stage 4 chronic kidney disease, or unspecified chronic kidney disease; N18.9 Chronic kidney disease, unspecified; Z86.711 Personal history of pulmonary embolism; Z87.440 Personal history of urinary (tract) infections; Z88.0 Allergy status to penicillin; Z88.8 Allergy status to other drugs, medicaments and biological substances; Z90.49 Acquired absence of other specified parts of digestive tract
CPT/HCPCS: 36415; 70450; 71045; 71250; 74176; 80053; 81001; 83605; 83690; 84484; 85025; 87040; 93005; 96365; J0692; J3370; J7040; P9612; Q0169; 99291-25; J7030

== ENCOUNTER 2020-03-19 14:13 | Emergency (ER) | payer MEDICARE, OTHER ==
[~2020-03-19] VITALS: Ht 167.6 cm; Wt 96.6 kg
[~2020-03-19 14:13] MED LIST changes: +LISI-334 PO; +OXYC1TAB22 PO; +REFRESH OU
--- NOTE | 2020-03-19 14:26 | PHYS DOC ---
Past History Past Medical History: Cancer, Depression, High Cholesterol, Hypertension, Hypothyroid Past Surgical History: Cancer Surgery, Cholecystectomy, Other Additional Past Surgical Histo: back sx one month ago Alcohol Use: None Drug Use: None General Adult EDM: Chief Complaint: MECHANICAL FALL HPI: HPI: The history was obtained from the patient. Patient is a 74-year-old female with PMH multiple comorbidities who presents with a chief complaint of fall. Patient states is prior to arrival she was walking on her neighbors driveway tomorrow cooking supplies. She states that she must have got her feet caught between the drive with the grass and fell to the ground. She does know that she struck her head. She notes acute on chronic right shoulder pain as well as right knee pain. She denies loss of consciousness. She does not take blood thinners. She states she is able to move her right knee without difficulty. She states she has full range of motion of her right shoulder. She notes she recently had a left knee replaced and ambulates with the assistance of a walker at baseline. She states that she does take Dickinson at home for chronic right shoulder pain. She last took 10 mg of Dickinson at 10 AM approximately 4-1/2 hours prior to arrival. Denies chest pain or shortness of breath. Denies any neck pain. Has not been ambulatory since the fall. No other complaints. Review of Systems: Review of Systems: Constitutional: Denies fever or chills Eyes: Denies change in visual acuity HENT: Denies nasal congestion or sore throat Respiratory: Denies cough or shortness of breath Cardiovascular: Denies chest pain or edema GI: Denies abdominal pain, nausea, vomiting, bloody stools or diarrhea : Denies dysuria Musculoskeletal: Positive for fall and myalgias Integument: Denies rash Neurologic: Denies headache, focal weakness or sensory changes Endocrine: Denies polyuria or polydipsia Lymphatic: Denies swollen glands Psychiatric: Denies depression or anxiety Heart Score: Risk Factors: Risk Factors: DM, Current or recent (<one month) smoker, HTN, HLP, family history of CAD, obesity. Risk Scores: Score 0 - 3: 2.5% MACE over next 6 weeks - Discharge Home Score 4 - 6: 20.3% MACE over next 6 weeks - Admit for Clinical Observation Score 7 - 10: 72.7% MACE over next 6 weeks - Early Invasive Strategies Allergies: Allergies: Allergies Coded Allergies Type Severity Reaction Last Updated Verified Penicillins Allergy Severe 08/01/15 Yes ciprofloxacin Allergy Intermediate 04/09/19 Yes Physical Exam: PE: Physical Exam Trauma: Primary Survey: Airway: Intact. Speaks in normal voice and phonation. Breathing: Breath sounds are clear and equal bilaterally. Circulation: Regular rhythm, 2+ and symmetric radial, DP and PT pulses. Disability: GCS on arrival was 15. Pupils 3 mm, ERRL Exposure: Complete exposure obtained and described in detail below. Secondary Survey: General: Awake, alert, appropriate, and in no acute distress HENT: 3 x 4 cm area of ecchymosis and hematoma to the right forehead. TMs clear bilaterally, no hemotympanum. No periorbital tenderness or deformity. No obvious craniofacial trauma. Midface is stable. No apparent dental or tongue/oropharyngeal injury. No septal hematoma. Neck: C-spine: no midline tenderness. Without step-off, deformity, abrasion, ecchymosis, or other signs of trauma. Paraspinal musculature with no tenderness and/or hypertonicity. Eyes: Pupils 3 mm ERRL, EOMI grossly, no evidence of ocular trauma, conjunctivae normal Respiratory: CTAB without wheezing, rhonchi, or rales. No distress. Chest wall with no tenderness to palpation. No crepitus, ecchymosis, or flail segment present. Cardiovascular: Regular rhythm without murmurs noted. 2+ and symmetric radial, DP and PT pulses. GI: Soft, non-tender, non-distended Musculoskeletal: T-spine: no midline tenderness. Without step-off, deformity, abrasion, ecchymosis, or other signs of trauma. Paraspinal musculature with no tenderness and/or hypertonicity. L-spine: no midline tenderness. Without step-off, deformity, abrasion, ecchymosis, or other signs of trauma. Paraspinal musculature with no tenderness and/or hypertonicity. RUE: Active ROM, no obvious deformity, no gross weakness or sensory deficits, warm & well-perfused LUE: Active ROM, no obvious deformity, no gross weakness or sensory deficits, warm & well-perfused RLE: Slight ecchymosis overlying the right knee joint. Active ROM, no obvious deformity, no gross weakness or sensory deficits, warm & well-perfused LLE: Active ROM, no obvious deformity, no gross weakness or sensory deficits, warm & well-perfused Integument: Without abrasions, contusions, or lacerations. Neurologic: GCS on arrival as noted above. No obvious focal motor or sensory deficits on examination. Gait not assessed due to acuity of trauma assessment. Current Patient Data: Vital Signs: Vital Signs Date Time Temp Pulse Resp B/P (MAP) Pulse Ox O2 Delivery O2 Flow Rate FiO2 03/19/20 15:05 84 20 154/82 (106) 96 Room Air 03/19/20 15:02 20 Room Air 03/19/20 14:15 99.3 93 20 138/77 (97) 96 Room Air EKG: EKG: [] Radiology/Procedures: Radiology/Procedures: [address] [address] IMAGING REPORT Signed PATIENT: ANA MARÍA WELDON ACCOUNT: [id number] : 1945 LOCATION: ER AGE: 74 SEX: F EXAM STATUS: REG ER ORD. PHYSICIAN: SYED PÉREZ DO REASON: fall PROCEDURE: SHOULDER 2+V RIGHT Right knee 3 views 03/19/2020. Reason for exam: Pain after falling. No fracture or dislocation is seen. There is mild medial joint compartment narrowing. Soft tissue swelling is seen anteriorly. Little if any joint fluid is present. IMPRESSION: No acute bony abnormality. AP pelvis: Changes of previous fracture fixation are seen in the proximal left femur. No acute fracture or dislocation is seen. There are mild arthritic changes. Postoperative findings are shown in the lower lumbar spine. IMPRESSION: No acute findings. Right shoulder 3 views: No fracture or dislocation is seen. There is moderate osteoarthritis with prominent osteophytic spurring at the margin of the humeral head. There is no apparent destructive process. IMPRESSION: No apparent acute abnormality. Electronically signed by: Gary Henriquez Jr., MD (03/19/2020 3:19 PM) [facility] DICTATED AND SIGNED BY: GARY HENRIQUEZ Jr, MD DATE: 03/19/20 1519 CC: SANTO CAN; SYED PÉREZ DO ~ [address] [address] IMAGING REPORT Signed PATIENT: ANA MARÍA WELDON ACCOUNT: [id number] : 1945 LOCATION: ER AGE: 74 SEX: F EXAM STATUS: REG ER ORD. PHYSICIAN: SYED PÉREZ DO REASON: fall PROCEDURE: PELVIS Right knee 3 views 03/19/2020. Reason for exam: Pain after falling. No fracture or dislocation is seen. There is mild medial joint compartment narrowing. Soft tissue swelling is seen anteriorly. Little if any joint fluid is present. IMPRESSION: No acute bony abnormality. AP pelvis: Changes of previous fracture fixation are seen in the proximal left femur. No acute fracture or dislocation is seen. There are mild arthritic changes. Postoperative findings are shown in the lower lumbar spine. IMPRESSION: No acute findings. Right shoulder 3 views: No fracture or dislocation is seen. There is moderate osteoarthritis with prominent osteophytic spurring at the margin of the humeral head. There is no apparent destructive process. IMPRESSION: No apparent acute abnormality. Electronically signed by: Gary Henriquez Jr., MD (03/19/2020 3:19 PM) [facility] DICTATED AND SIGNED BY: GARY HENRIQUEZ Jr, MD DATE: 03/19/201518 CC: SANTO CAN; SYED PÉREZ DO ~ [address] [address] IMAGING REPORT Signed PATIENT: ANA MARÍA WELDON ACCOUNT: [id number] : 1945 LOCATION: ER AGE: 74 SEX: F EXAM STATUS: REG ER ORD. PHYSICIAN: SYED PÉREZ DO REASON: fall PROCEDURE: KNEE RIGHT 3V Right knee 3 views 03/19/2020. Reason for exam: Pain after falling. No fracture or dislocation is seen. There is mild medial joint compartment narrowing. Soft tissue swelling is seen anteriorly. Little if any joint fluid is present. IMPRESSION: No acute bony abnormality. AP pelvis: Changes of previous fracture fixation are seen in the proximal left femur. No acute fracture or dislocation is seen. There are mild arthritic changes. Postoperative findings are shown in the lower lumbar spine. IMPRESSION: No acute findings. Right shoulder 3 views: No fracture or dislocation is seen. There is moderate osteoarthritis with prominent osteophytic spurring at the margin of the humeral head. There is no apparent destructive process. IMPRESSION: No apparent acute abnormality. Electronically signed by: Gary Henriquez Jr., MD (03/19/2020 3:19 PM) [facility] DICTATED AND SIGNED BY: GARY HENRIQUEZ Jr, MD DATE: 03/19/20 7893 CC: SANTO CAN; SYED PÉREZ DO ~ [place] [address] IMAGING REPORT Signed PATIENT: ANA MARÍA WELDON ACCOUNT: [id number] : 1945 LOCATION: ER AGE: 74 SEX: F EXAM STATUS: REG ER ORD. PHYSICIAN: SYED PÉREZ DO REASON: fall PROCEDURE: CT HEAD AND CERVICAL SPINE WO CT head and cervical spine 03/19/2020. Reason for exam: Patient fell. Noncontrast images were obtained. Exposure: One or more of the following individualized dose reduction techniques were utilized for this examination: 1. Automated exposure control 2. Adjustment of the mA and/or kV according to patient size 3. Use of iterative reconstruction technique. CTA HEAD: Comparison is made with the prior study of 04/08/2019. There is no apparent intracranial hemorrhage or abnormal extra-axial fluid collection. No new area of abnormal density is seen. The ventricles and basilar cisterns are normally positioned. There is a right frontal scalp hematoma. Bone windows reveal no apparent fracture of the skull or abnormal sinus or mastoid opacification. IMPRESSION: No apparent acute intracranial abnormality. CT cervical spine: Comparison is made with a study of 06/30/2016. Alignment is normal. There is no loss of vertebral body height or prevertebral soft tissue swelling. No fracture line is seen. There is some disc narrowing at C5-6 and C6-7. There is no apparent destructive process. Evaluation of the soft tissue components of the canal is limited without intrathecal contrast. IMPRESSION: No acute abnormality. Electronically signed by: Gary Henriquez Jr., MD (03/19/2020 3:16 PM) [facility] DICTATED AND SIGNED BY: GARY HENRIQUEZ Jr, MD DATE: 03/19/201515 CC: SANTO CAN; SYED PÉREZ DO ~ [][place] [address] IMAGING REPORT Signed PATIENT: LEO AYALA ACCOUNT: [id number] : 12/05/1994 LOCATION: ER AGE: 25 SEX: F EXAM STATUS: REG ER ORD. PHYSICIAN: SYED PÉREZ DO REASON: vaginal bleeding. est 8-9 weeks . r/o ectopic PROCEDURE: OB <14 WKS W/TV OB <14 WKS W/TV History: Reason: vaginal bleeding. est 8-9 weeks . r/o ectopic / Spl. Instructions: / History: Comparison: None. Technique: Grayscale and color Doppler imaging of the pelvis was performed using transabdominal and transvaginal technique. Findings: The uterus measures 7 x 5 x 5 cm. IUD noted within the upper endometrial canal. Endometrial thickness 6 mm. No evidence of intrauterine gestational sac. Right ovary measures 4.0 x 2.4 x 2.4 cm. Left ovary measures 4.0 x 1.9 x 1.9 cm. Normal Doppler flow to the ovaries bilaterally. No adnexal masses are seen. IMPRESSION: 1. No evidence of intrauterine gestational sac. Recommend short-term ultrasound follow-up and serial beta-hCG testing. 2. IUD noted within the upper endometrial canal. Electronically signed by: Jacob Jordan DO (03/19/2020 3:19 PM) [facility] DICTATED AND SIGNED BY: JACOB JORDAN DO DATE: 03/19/201518 CC: PCP,THOMAS; SYED PÉREZ DO ~ Course & Med Decision Making: Course & Med Decision Making Pertinent Labs and Imaging studies reviewed. (See chart for details) [] Patient is a very pleasant 74-year-old female who presents with chief complaint of right knee and shoulder pain status post mechanical fall. Initial vital signs unremarkable. Exam noted above. CT imaging of the head and C-spine negative for acute traumatic abnormality. Plain film imaging reveals no acute osseous abnormality. She has been able to ambulate in the emergency department. She was instructed to follow-up with her primary care physician in the next 2 to 3 days. Return precautions were discussed and understood. Repeat examination remained stable with no signs of clinical or mental status decline. Appropriate for discharge home. Dragon Disclaimer: Dragon Disclaimer: This electronic medical record was generated, in whole or in part, using a voice recognition dictation system. Departure Departure: Impression: Primary Impression: Fall Qualified Codes: W19.XXXA - Unspecified fall, initial encounter Additional Impressions: Right knee pain Qualified Codes: M25.561 - Pain in right knee Chronic right shoulder pain Scalp hematoma Qualified Codes: S00.03XA - Contusion of scalp, initial encounter Disposition: 01 HOME/RESIDENCE PRIOR TO ADM Condition: STABLE Referrals: SANTO CAN (PCP) Patient Instructions: Fall Prevention and Home Safety Additional Instructions: Please follow-up with your primary care physician in the next 2 to 3 days. Scripts Acetaminophen (TYLENOL) 325 Mg Tablet 1000 MG PO TID PRN PRN for PAIN for 7 Days, #21 TAB Prov: SYED PÉREZ DO 03/19/20 Justification of Admission: Justification of Admission: Justification of Admission Dx: N/A SYED PÉREZ DO Mar 19, 2020 14:26
[2020-03-19] MEDS ORDERED: HYDROcodone/APAP 5/325MG 1 TAB TABLET PO ONE (14:30)
--- NOTE | 2020-03-19 15:18 | RAD ---
CT head and cervical spine 03/19/2020. Reason for exam: Patient fell. Noncontrast images were obtained. Exposure: One or more of the following individualized dose reduction techniques were utilized for this examination: 1. Automated exposure control 2. Adjustment of the mA and/or kV according to patient size 3. Use of iterative reconstruction technique. CTA HEAD: Comparison is made with the prior study of 04/08/2019. There is no apparent intracranial hemorrhage or abnormal extra-axial fluid collection. No new area of abnormal density is seen. The ventricles and basilar cisterns are normally positioned. There is a right frontal scalp hematoma. Bone windows reveal no apparent fracture of the skull or abnormal sinus or mastoid opacification. IMPRESSION: No apparent acute intracranial abnormality. CT cervical spine: Comparison is made with a study of 06/30/2016. Alignment is normal. There is no loss of vertebral body height or prevertebral soft tissue swelling. No fracture line is seen. There is some disc narrowing at C5-6 and C6-7. There is no apparent destructive process. Evaluation of the soft tissue components of the canal is limited without intrathecal contrast. IMPRESSION: No acute abnormality. Electronically signed by: Basil Henriquez Jr., MD (03/19/2020 3:16 PM) [facility]
--- NOTE | 2020-03-19 15:19 | RAD ---
CHEST PA LATERAL History: Reason: fall / Spl. Instructions: / History: . Pain Comparison: April 08, 2019 Findings: Linear left basilar atelectasis or scarring. No consolidation or pleural effusion. Normal heart size. No pneumothorax. Postoperative changes bilateral axilla and upper abdomen. Postop changes upper lumbar spine. Impression: 1. No acute cardiopulmonary process. Electronically signed by: Jacob Cole DO (03/19/2020 3:17 PM) [facility]
--- NOTE | 2020-03-19 15:23 | RAD ---
Right knee 3 views 03/19/2020. Reason for exam: Pain after falling. No fracture or dislocation is seen. There is mild medial joint compartment narrowing. Soft tissue swelling is seen anteriorly. Little if any joint fluid is present. IMPRESSION: No acute bony abnormality. AP pelvis: Changes of previous fracture fixation are seen in the proximal left femur. No acute fracture or dislocation is seen. There are mild arthritic changes. Postoperative findings are shown in the lower lumbar spine. IMPRESSION: No acute findings. Right shoulder 3 views: No fracture or dislocation is seen. There is moderate osteoarthritis with prominent osteophytic spurring at the margin of the humeral head. There is no apparent destructive process. IMPRESSION: No apparent acute abnormality. Electronically signed by: Basil Henriquez Jr., MD (03/19/2020 3:19 PM) [facility]
[2020-03-19] MEDS ORDERED: ACET325T9 PO (15:40)
[2020-03-19 15:52] VITALS: BP 166/65
== END 2020-03-19 16:10 | disposition home or self-care (01) ==
LOC: ER 14:13
DX: S00.03XA Contusion of scalp, initial encounter (principal); G89.29 Other chronic pain; M25.511 Pain in right shoulder; M25.561 Pain in right knee; E78.00 Pure hypercholesterolemia, unspecified; I10 Essential (primary) hypertension; E03.9 Hypothyroidism, unspecified; Z88.0 Allergy status to penicillin; Z88.1 Allergy status to other antibiotic agents; W18.39XA Other fall on same level, initial encounter; Y93.01 Activity, walking, marching and hiking; Y92.89 Other specified places as the place of occurrence of the external cause; Y99.8 Other external cause status
CPT/HCPCS: 70450; 71046; 72125; 72170; 73030; 73562; 99285-25

== ENCOUNTER 2020-04-09 11:15 | Emergency (ER) | payer MEDICARE, OTHER ==
[~2020-04-09] VITALS: Ht 167.6 cm; Wt 96.6 kg
[~2020-04-09 11:15] MED LIST changes: +ACET325T9 PO
[2020-04-09] MEDS ORDERED: ONDANSETRON PF 4 MG/2 ML VIAL. IVP ONE (12:00)
[2020-04-09] MEDS ORDERED: MORPHINE SULFATE 4 MG/ML DISP.SYRIN. IV ONE ×2 (12:00→16:45)
--- NOTE | 2020-04-09 12:06 | PHYS DOC ---
Past History Past Medical History: Arthritis, Cancer, Depression, GERD, High Cholesterol, Hypertension, Hypothyroid, Migraines, Other Additional Past Medical Histor: NEURAPTHY Past Surgical History: Cancer Surgery, Cholecystectomy, Other Additional Past Surgical Histo: back sx one month ago, LEFT KNEE Alcohol Use: None Drug Use: None General Adult EDM: Chief Complaint: MECHANICAL FALL HPI: HPI: 74-year-old female presents via EMS due to fall at home. The patient was walking in from her deck and caught her shoe on the threshold. She fell onto her right knee and hit her head on the ground. This is her second fall recently. Her right knee was scheduled for an ultrasound today due to swelling from the previous fall. She tells me that knee is hurting much worse after this fall and it is even more swollen. She also has ecchymosis of this knee. She has a hematoma on her forehead and has some dried blood around her mouth that she thinks was from a small cut on her lip. Patient takes baby aspirin daily. She is on no other anticoagulants or antiplatelets. Review of Systems: Review of Systems: Constitutional: Denies fever or chills Eyes: Denies change in visual acuity HENT: Ecchymosis of the forehead Respiratory: Denies cough or shortness of breath Cardiovascular: Denies chest pain or edema GI: Denies abdominal pain, nausea, vomiting, bloody stools or diarrhea : Denies dysuria Musculoskeletal: Right knee pain with swelling and ecchymosis Integument: Denies rash Neurologic: Denies headache, focal weakness or sensory changes Endocrine: Denies polyuria or polydipsia Lymphatic: Denies swollen glands Psychiatric: Denies depression or anxiety Heart Score: Risk Factors: Risk Factors: DM, Current or recent (<one month) smoker, HTN, HLP, family history of CAD, obesity. Risk Scores: Score 0 - 3: 2.5% MACE over next 6 weeks - Discharge Home Score 4 - 6: 20.3% MACE over next 6 weeks - Admit for Clinical Observation Score 7 - 10: 72.7% MACE over next 6 weeks - Early Invasive Strategies Current Medications: Current Meds: Current Medications Medications (Trade) Dose Ordered Sig/Natalee Start Time Stop Time Status Last Admin Dose Admin Morphine Sulfate (Morphine 4mg Syringe) 4 mg 1X ONCE 04/09/20 12:00 04/09/20 12:01 UNV Ondansetron HCl (Zofran) 4 mg 1X ONCE 04/09/20 12:00 04/09/20 12:01 UNV Allergies: Allergies: Allergies Coded Allergies Type Severity Reaction Last Updated Verified Penicillins Allergy Severe 08/01/15 Yes ciprofloxacin Allergy Intermediate 04/09/19 Yes Physical Exam: PE: Constitutional: Well developed, well nourished, no acute distress, non-toxic appearance. [] HENT: Normocephalic, hematoma of the forehead, dried blood on the lips with no active bleeding. Bilateral external ears normal, oropharynx moist, no oral exudates, nose normal. [] Eyes: PERRLA, EOMI, conjunctiva normal, no discharge. [] Neck: Normal range of motion, no tenderness, supple, no stridor. [] Cardiovascular: Heart rate regular rhythm, no murmur [] Lungs & Thorax: Bilateral breath sounds clear to auscultation [] Abdomen: Bowel sounds normal, soft, no tenderness, no masses, no pulsatile masses. [] Skin: Warm, dry, no erythema, no rash. [] Back: No tenderness, no CVA tenderness. [] Extremities: Tenderness, extreme swelling, ecchymosis of the right knee. [] Neurologic: Alert and oriented X 3, normal motor function, normal sensory function, no focal deficits noted. [] Psychologic: Affect normal, judgement normal, mood normal. [] EKG: EKG: [] Radiology/Procedures: Radiology/Procedures: [] Impressions: Examination: CT head and cervical spine without contrast CT HEAD INDICATION: Reason: mechanical fall / Spl. Instructions: / History: COMPARISON: None Available. Exposure: One or more of the following individualized dose reduction techniques were utilized for this examination: 1. Automated exposure control 2. Adjustment of the mA and/or kV according to patient size 3. Use of iterative reconstruction technique TECHNIQUE: 5 mm contiguous axial images were obtained from the skull base to the vertex in both bone and soft tissue algorithm. FINDINGS: Mild soft tissue swelling/hematoma identified in the right forehead region. No evidence of acute intracranial hemorrhage. No extra-axial fluid collections. No mass effect or midline shift. Ventricular size is appropriate. Basal cisterns are patent. No fractures identified.Monae-white differentiation is preserved.Globes and orbits are within normal limits. Paranasal sinuses and mastoid air cells are clear. IMPRESSION: 1. No acute intracranial findings. 2. Mild soft tissue swelling/hematoma identified in the right forehead region CT CERVICAL SPINE INDICATION: Reason: mechanical fall / Spl. Instructions: / History: COMPARISON: None Available. Technique: 2.5 mm contiguous axial images were obtained from the skull base through the cervicothoracic junction in both bone and soft tissue algorithm. Additional sagittal and coronal reconstructions were also performed. FINDINGS: Vertebral body height and alignment are maintained. Cervical lordosis is preserved. The lateral masses of C1 are aligned upon C2. No fractures identified. The bony canal is patent throughout. Moderate intervertebral disc height loss identified in cervical spine most at C5-C6, C6 vertebral levels with small anterior and posterior osteophyte formation. The paraspinous soft tissues are unremarkable. Visualized intracranial contents are unremarkable. Lung apices are clear. IMPRESSION: 1. No acute fracture cervical spine. Correlate clinically. 2. Moderate degenerative changes cervical spine Electronically signed by: Da Husain MD (04/09/2020 1:38 PM) [id number] DICTATED AND SIGNED BY: DA HUSAIN MD DATE: 04/09/20 1338 CC: SMITH LUDWIG DO; [facility] ~ EXAM: Right knee, 3 views. HISTORY: Fall. COMPARISON: None. FINDINGS: 3 views of the right knee are obtained. There is medial compartment joint space narrowing and subchondral scoliosis. There is medial compartment predominant spurring. There is prepatellar soft tissue swelling. There is a small joint effusion. There is enthesopathy along the superior patella. IMPRESSION: 1. Prepatellar soft tissue swelling due to a hematoma or prepatellar bursitis. 2. Mild medial compartment predominant osteoarthritis of the right knee. 3. Suspected small right knee effusion. Electronically signed by: Jazlyn German MD (04/09/2020 12:56 PM) [id number] DICTATED AND SIGNED BY: JAZLYN GERMAN MD DATE: 04/09/20 1256 CC: SMITH LUDWIG DO; SANTO CAN ~ INDICATION: Reason: HEMATOMA, PAIN AND BRUISING AROUND RIGHT KNEE S/P FALL X2 / Spl. Instructions: / History: COMPARISON: Plain film from same day FINDINGS: Focused ultrasound images were obtained of the soft tissues adjacent to the right knee. There is a large heterogenous but predominantly hypoechoic region seen within the soft tissues. Its difficult to obtain an accurate measurement given the large size but measures at least 110 x 15 mm. Adjacent edema in the soft tissues. IMPRESSION: * Large heterogenous region is seen within the soft tissues. This could be secondary to a large soft tissue hematoma but would obtain a follow-up to ensure that this appropriately resolves to exclude any neoplastic cause contributing. Electronically signed by: Eric Cervantes MD (04/09/2020 3:10 PM) [id number] DICTATED AND SIGNED BY: ERIC CERVANTES MD DATE: 04/09/20 4130 CC: SMITH LUDWIG DO; SANTO CAN ~ Course & Med Decision Making: Course & Med Decision Making Pertinent Labs and Imaging studies reviewed. (See chart for details) The patient's labs are significant for an elevated creatinine and a low hemoglobin of 9.6. Her x-ray does not show a fracture. Ultrasound shows likely prepatellar hematoma. Spoke with at [facility] who is her orthopedic surgeon. He recommended that I attempt to drain the knee. I made 3 needle attempts and was unable to get any significant blood return. [facility] facilities are full and have no beds. I spoke with Dr. Elizabeth and he has recommended we transfer the patient to [facility] for admission and consult with our orthopedics. Patient cannot go home due to the significant amount of pain that she is in. She will be unable to get around on her own. She is required 2 mg of Ativan and 8 mg of morphine for pain control. [] Dragon Disclaimer: Bettie Disclaimer: This electronic medical record was generated, in whole or in part, using a voice recognition dictation system. Departure Departure: Impression: Primary Impression: Fall Qualified Codes: W19.XXXA - Unspecified fall, initial encounter Additional Impressions: Right knee pain Qualified Codes: M25.561 - Pain in right knee Prepatellar effusion of right knee Disposition: XFER T-[facility] Admitting Physician: Solis Elizabeth Condition: STABLE Referrals: SANTO CAN (PCP) Patient Instructions: Knee Effusion, [id number] Justification of Admission: Justification of Admission: Justification of Admission Dx: N/A SMITH LUDWIG DO Apr 09, 2020 12:06
[2020-04-09] MEDS ORDERED: IV NORMAL SALINE 500ML 500 ML IV ONE (12:15)
[2020-04-09 12:40] LABS: BASO # 0.1 x10^3/uL (0.0-0.2); BASO % 1 % (0-3); EOS # 0.3 x10^3/uL (0.0-0.7); EOS % 4 % (0-3); HEMATOCRIT 30.3 % (36.0-47.0); HEMOGLOBIN 9.6 g/dL (12.0-15.5); LYMPH % 12 % (24-48); MEAN CORPUSCULAR HEMOGLOBIN 28 pg (25-35); MEAN CORPUSCULAR HGB CONC 32 g/dL (31-37); MEAN CORPUSCULAR VOLUME 88 fL (79-100); MONO # 0.5 x10^3/uL (0.0-1.1); MONO % 6 % (0-9); NEUT # 6.5 x10^3uL (1.8-7.7); NEUT % 78 % (31-73); PLATELET COUNT 280 x10^3/uL (140-400); RED BLOOD COUNT 3.43 x10^6/uL (3.50-5.40); RED CELL DISTRIBUTION WIDTH 14.1 % (11.5-14.5); WHITE BLOOD COUNT 8.4 x10^3/uL (4.0-11.0)
[2020-04-09 12:47] LABS: CALCIUM 8.4 mg/dL (8.5-10.1); CREATININE 1.9 mg/dL (0.6-1.0); POTASSIUM 3.8 mmol/L (3.5-5.1)
[2020-04-09 12:53] LABS: ALBUMIN 3.2 g/dL (3.4-5.0); ALBUMIN/GLOBULIN RATIO 0.8 (1.0-1.7); TOTAL BILIRUBIN 0.3 mg/dL (0.2-1.0)
--- NOTE | 2020-04-09 12:59 | RAD ---
EXAM: Right knee, 3 views. HISTORY: Fall. COMPARISON: None. FINDINGS: 3 views of the right knee are obtained. There is medial compartment joint space narrowing and subchondral scoliosis. There is medial compartment predominant spurring. There is prepatellar soft tissue swelling. There is a small joint effusion. There is enthesopathy along the superior patella. IMPRESSION: 1. Prepatellar soft tissue swelling due to a hematoma or prepatellar bursitis. 2. Mild medial compartment predominant osteoarthritis of the right knee. 3. Suspected small right knee effusion. Electronically signed by: Jazlyn Martinez MD (04/09/2020 12:56 PM) [email or web address]
[2020-04-09] MEDS ORDERED: MORPHINE SULFATE 2 MG/ML DISP.SYRIN. IV ONE (13:15)
--- NOTE | 2020-04-09 13:41 | RAD ---
Examination: CT head and cervical spine without contrast CT HEAD INDICATION: Reason: mechanical fall / Spl. Instructions: / History: COMPARISON: None Available. Exposure: One or more of the following individualized dose reduction techniques were utilized for this examination: 1. Automated exposure control 2. Adjustment of the mA and/or kV according to patient size 3. Use of iterative reconstruction technique TECHNIQUE: 5 mm contiguous axial images were obtained from the skull base to the vertex in both bone and soft tissue algorithm. FINDINGS: Mild soft tissue swelling/hematoma identified in the right forehead region. No evidence of acute intracranial hemorrhage. No extra-axial fluid collections. No mass effect or midline shift. Ventricular size is appropriate. Basal cisterns are patent. No fractures identified.Monae-white differentiation is preserved.Globes and orbits are within normal limits. Paranasal sinuses and mastoid air cells are clear. IMPRESSION: 1. No acute intracranial findings. 2. Mild soft tissue swelling/hematoma identified in the right forehead region CT CERVICAL SPINE INDICATION: Reason: mechanical fall / Spl. Instructions: / History: COMPARISON: None Available. Technique: 2.5 mm contiguous axial images were obtained from the skull base through the cervicothoracic junction in both bone and soft tissue algorithm. Additional sagittal and coronal reconstructions were also performed. FINDINGS: Vertebral body height and alignment are maintained. Cervical lordosis is preserved. The lateral masses of C1 are aligned upon C2. No fractures identified. The bony canal is patent throughout. Moderate intervertebral disc height loss identified in cervical spine most at C5-C6, C6 vertebral levels with small anterior and posterior osteophyte formation. The paraspinous soft tissues are unremarkable. Visualized intracranial contents are unremarkable. Lung apices are clear. IMPRESSION: 1. No acute fracture cervical spine. Correlate clinically. 2. Moderate degenerative changes cervical spine Electronically signed by: Da Husain MD (04/09/2020 1:38 PM) [id number]
--- NOTE | 2020-04-09 15:12 | RAD ---
INDICATION: Reason: HEMATOMA, PAIN AND BRUISING AROUND RIGHT KNEE S/P FALL X2 / Spl. Instructions: / History: COMPARISON: Plain film from same day FINDINGS: Focused ultrasound images were obtained of the soft tissues adjacent to the right knee. There is a large heterogenous but predominantly hypoechoic region seen within the soft tissues. Its difficult to obtain an accurate measurement given the large size but measures at least 110 x 15 mm. Adjacent edema in the soft tissues. IMPRESSION: * Large heterogenous region is seen within the soft tissues. This could be secondary to a large soft tissue hematoma but would obtain a follow-up to ensure that this appropriately resolves to exclude any neoplastic cause contributing. Electronically signed by: Stepan Reid MD (04/09/2020 3:10 PM) [id number]
[2020-04-09 21:15] VITALS: BP 162/92
== END 2020-04-09 21:15 | disposition home or self-care (01) ==
LOC: ER 11:15
DX: S80.01XA Contusion of right knee, initial encounter (principal); S00.83XA Contusion of other part of head, initial encounter; M19.90 Unspecified osteoarthritis, unspecified site; K21.9 Gastro-esophageal reflux disease without esophagitis; E78.00 Pure hypercholesterolemia, unspecified; I10 Essential (primary) hypertension; E03.9 Hypothyroidism, unspecified; G43.909 Migraine, unspecified, not intractable, without status migrainosus; Z88.0 Allergy status to penicillin; Z88.1 Allergy status to other antibiotic agents; W18.39XA Other fall on same level, initial encounter; Y93.01 Activity, walking, marching and hiking; Y92.098 Other place in other non-institutional residence as the place of occurrence of the external cause; Y99.8 Other external cause status
CPT/HCPCS: 20610; 36415; 70450; 72125; 73562; 76881; 80053; 85025; 85610; 85730; 96374; 96375; 96376; 99285; J2060; J2270; J2405; J7040

== ENCOUNTER → 2020-05-02 | Outpatient (CLI) | payer MEDICARE, OTHER ==
[2020-04-09 21:15] VITALS: BP 162/92
--- NOTE | 2020-05-02 14:20 | RAD ---
CT RIGHT KNEE WITHOUT IV CONTRAST CLINICAL HISTORY: Continued right knee pain following fall over one month ago TECHNIQUE: Noncontrast serial axial images obtained through the right knee with sagittal and coronal reconstructions. CT Dose Reduction Employed: One or more of the following individualized dose reduction techniques were utilized for this examination: 1. Automated exposure control 2. Adjustment of the mA and/or kV according to patient size 3. Use of iterative reconstruction technique. COMPARISON: Right knee radiographs 04/01/2020 and 03/19/2020 FINDINGS: Beam hardening artifact related to left total knee arthroplasty limits evaluation. Large collection in the subcutaneous soft tissues along the anterior knee measuring up to approximately 4.0 x 15.9 x 2.0 cm (AP x TRV x CC) with mean attenuation approximately 22 Hounsfield units. The collection abuts the underlying fascia with mild adjacent subcutaneous edema. Normal fat planes preserved in the muscle compartments of the visualized thigh and leg. Small joint effusion. Tricompartmental joint space narrowing with subchondral cysts and sclerosis. No acute fracture. Small suprapatellar enthesophyte. Vascular calcifications. IMPRESSION: Nonspecific large collection along the anterior left knee, suggestive of a Zarate-Lynda lesion. Tricompartmental degenerative changes as described. Electronically signed by: Martin Fletcher DO (05/02/2020 2:17 PM) [id number]
== END ==
LOC: CT 12:58
PROVIDERS: ATTEND Internal Medicine
DX: M17.11 Unilateral primary osteoarthritis, right knee (principal); M25.461 Effusion, right knee
CPT/HCPCS: 73700

== ENCOUNTER → 2021-05-29 | Day surgery (SDC) | payer MEDICARE, OTHER ==
[~2021-05-29] MED LIST changes: -DULO60CA6 PO; +DULO60CA7 PO; -LISI-334 PO; -LISI2.5T PO; +LISI2.5T12 PO; +LISI20TA18 PO
[2021-05-29 11:57] VITALS: BP 153/76
== END | disposition home or self-care (01) ==
LOC: SURG 11:45
PROVIDERS: ATTEND Anesthesiology
DX: M25.511 Pain in right shoulder (principal); G89.18 Other acute postprocedural pain; M62.50 Muscle wasting and atrophy, not elsewhere classified, unspecified site; M62.89 Other specified disorders of muscle; M79.89 Other specified soft tissue disorders; I10 Essential (primary) hypertension; E03.9 Hypothyroidism, unspecified; K21.9 Gastro-esophageal reflux disease without esophagitis; M19.90 Unspecified osteoarthritis, unspecified site; F32.9 Major depressive disorder, single episode, unspecified; Z79.82 Long term (current) use of aspirin; Z79.899 Other long term (current) drug therapy; Z98.890 Other specified postprocedural states; Z88.0 Allergy status to penicillin; Z88.1 Allergy status to other antibiotic agents
CPT/HCPCS: 99214; G0463

== ENCOUNTER 2021-12-03 19:18 | Emergency (ER) | payer MEDICARE, OTHER ==
[~2021-12-03] VITALS: Ht 167.6 cm; Wt 94.5 kg
[2021-12-03] MEDS ORDERED: KETOROLAC 30 MG/ML VIAL. IM ONE (20:15)
--- NOTE | 2021-12-03 21:20 | RAD ---
Exam: CT head, cervical spine and thoracic spine without contrast INDICATION: Fall from standing on concrete TECHNIQUE: Sequential axial images through the head, cervical spine and thoracic spine were obtained without the administration of IV contrast. Exposure: One or more of the following in the visualized dose reduction techniques were utilized for this examination: 1. Automated exposure control 2. Adjustment of the MA and/or KV according to patient size 3. Use of iterative of reconstructive technique Comparisons: None FINDINGS: Head: No focal parenchymal lesion or hemorrhage is identified. There is no midline shift or sulcal effaceme nt. No acute vascular territory infarction is identified. Monae-white distinction is preserved. The ventricular system is within normal limits without compression hydrocephalus. The basal cisterns are well maintained. The visualized portions of the paranasal sinuses and mastoid air cells are well-pneumatized. No acute fractures. Cervical spine: Vertebral body heights and alignment are well-maintained. Fracture to the cervical spine is not identified. Multilevel spondylotic change in cervical spine with degenerative disc disease greatest at C5-C6. Visual is paraspinal soft tissues are unremarkable. Thoracic spine: Vertebral body heights and alignment are well-maintained. Fracture to the cervical spine is identified. Multilevel spondylotic change in the thoracic spine with mild degenerative disc disease in the mid an d lower thoracic spine. Bandlike opacity noted at the lung bases bilaterally likely representing atelectasis. IMPRESSION: 1. No acute intracranial abnormality. 2. Negative CT C-spine for acute traumatic injury. 3. Negative CT T spine for acute traumatic injury Electronically signed by: Patricia Galicia MD (12/03/2021 9:17 PM) [facility]
[2021-12-03] MEDS ORDERED: NAPR500T8 PO (21:44)
[2021-12-03] MEDS ORDERED: ORPH-16 PO (21:44)
--- NOTE | 2021-12-03 21:44 | PHYS DOC ---
Past History Past Medical History: GERD, Hypertension Additional Past Medical Histor: non-diabetic neuropathy Past Surgical History: Other Additional Past Surgical Histo: back, R shoulder, L knee Alcohol Use: None Drug Use: None General Adult EDM: Chief Complaint: MECHANICAL FALL HPI: HPI: Patient is a 76 year old female not on any blood thinners or anticoagulation who presents with upper back pain status post mechanical fall at home. Patient states she was walking out of the garage and slipped on the lip leading out to the driveway. She was unable to catch her self, and "slightly bumped" the back of her head on concrete. Patient arrives to the emergency department in c- collar. Patient denies any other pain or injuries, loss of consciousness, lightheadedness or other symptoms prior to fall. Review of Systems: Review of Systems: Constitutional: Denies fever, chills or generalized weakness Eyes: Denies change in visual acuity, visual field deficits or discharge HENT: Denies ear pain, nasal congestion or sore throat Respiratory: Denies cough or shortness of breath Cardiovascular: Denies chest pain, palpitations or edema GI: Denies abdominal pain, nausea, vomiting, bloody stools or diarrhea : Denies dysuria or hematuria Musculoskeletal: See HPI Integument: Denies rash or other skin lesion Neurologic: See HPI Current Medications: Current Meds: Current Medications Medications (Trade) Dose Ordered Sig/Natalee Route PRN Reason Start Time Stop Time Status Last Admin Dose Admin Ketorolac Tromethamine (Toradol 30mg Vial) 30 mg 1X ONCE IM 12/03/21 20:15 12/03/21 20:29 DC 12/03/21 20:30 Orphenadrine Citrate (Norflex) 60 mg 1X ONCE IM 12/03/21 21:45 12/03/21 21:46 DC 12/03/21 21:52 Allergies: Allergies: Allergies Coded Allergies Type Severity Reaction Last Updated Verified Penicillins Allergy Severe 05/29/21 Yes ciprofloxacin Allergy Intermediate 05/29/21 Yes Physical Exam: PE: Constitutional: Well developed, well nourished, no acute distress, non-toxic appearance. HENT: Normocephalic, atraumatic, bilateral external ears normal, oropharynx coated, no oral exudates, nose normal. Eyes: PERRL, EOMI, conjunctiva normal, no discharge. Neck: Normal range of motion, no tenderness, no stridor. Skin: Warm, dry, no erythema, no rash. Back: No upper thoracic paraspinal tenderness, no step-off, no bony/midline tenderness. Extremities: No tenderness, no cyanosis, no clubbing, ROM intact, no edema. Neurologic: Alert and oriented x4, normal motor function, normal sensory function, no focal deficits noted. Current Patient Data: Vital Signs: Vital Signs Date Time Temp Pulse Resp B/P (MAP) Pulse Ox O2 Delivery O2 Flow Rate FiO2 12/03/21 19:28 96.0 78 16 165/81 (109) 98 Room Air Radiology/Procedures: Radiology/Procedures: PROCEDURE: CT THORACIC SPINE WO CONTRAST Exam: CT head, cervical spine and thoracic spine without contrast INDICATION: Fall from standing on concrete TECHNIQUE: Sequential axial images through the head, cervical spine and thoracic spine were obtained without the administration of IV contrast. Exposure: One or more of the following in the visualized dose reduction techniques were utilized for this examination: 1. Automated exposure control 2. Adjustment of the MA and/or KV according to patient size 3. Use of iterative of reconstructive technique Comparisons: None FINDINGS: Head: No focal parenchymal lesion or hemorrhage is identified. There is no midline shift or sulcal effacement. No acute vascular territory infarction is identified. Monae-white distinction is preserved. The ventricular system is within normal limits without compression hydrocephalus. The basal cisterns are well maintained. The visualized portions of the paranasal sinuses and mastoid air cells are well- pneumatized. No acute fractures. Cervical spine: Vertebral body heights and alignment are well-maintained. Fracture to the cervical spine is not identified. Multilevel spondylotic change in cervical spine with degenerative disc disease greatest at C5-C6. Visual is paraspinal soft tissues are unremarkable. Thoracic spine: Vertebral body heights and alignment are well-maintained. Fracture to the cervical spine is identified. Multilevel spondylotic change in the thoracic spine with mild degenerative disc disease in the mid and lower thoracic spine. Bandlike opacity noted at the lung bases bilaterally likely representing atelectasis. IMPRESSION: 1. No acute intracranial abnormality. 2. Negative CT C-spine for acute traumatic injury. 3. Negative CT T spine for acute traumatic injury Electronically signed by: Patricia Galicia MD (12/03/2021 9:17 PM) [facility] Heart Score: C/O Chest Pain: No Course & Med Decision Making: Course & Med Decision Making Pertinent Labs and Imaging studies reviewed. (See chart for details) CT imaging negative for any acute injuries. Patient symptoms are improved with Toradol and Norflex. Patient was provided with electronic prescription for naproxen and Norflex p.o. Return precautions are provided. Patient and her daughter at bedside understand and are agreeable to discharge plan. Dragon Disclaimer: Dragon Disclaimer: This electronic medical record was generated, in whole or in part, using a voice recognition dictation system. Departure Departure: Impression: Primary Impression: Fall from standing Qualified Codes: W19.XXXA - Unspecified fall, initial encounter Additional Impressions: Contusion of unspecified part of head, initial encounter Contusion of middle back wall of thorax, initial encounter Disposition: 01 HOME / SELF CARE / HOMELESS Condition: STABLE Referrals: SANTO CAN (PCP) Patient Instructions: Contusion, [id number], Head Injury, Adult, [id number] Additional Instructions: EMERGENCY DEPARTMENT GENERAL DISCHARGE INSTRUCTIONS Thank you for coming to [facility] ([facility]) today and trusting us with you care. We trust that you had a positive experience in our Emergency Department. If you wish to speak to the department management, you may call the director at [phone]. YOUR FOLLOW UP INSTRUCTIONS ARE FOLLOWS: 1. Follow up with your primary care doctor. If you do not have a primary doctor, please ask for a resource list of physicians or clinics that may be able to assist you with follow up care. 2. The emergency provider has interpreted your imaging studies, if any were ordered. The radiology software support specialist also reviewed them. If there is a change in the findings, you will be notified in 48 hours when at all possible. 3. If a lab test or culture has been done, your results will be reviewed and y ou will be notified if you need a change in treatment. 4. Follow instructions verbalized to you and refer to the printouts if needed. ADDITIONAL INSTRUCTIONS AND INFORMATION: 1. Your care today has been supervised by a physician who is specially trained in emergency care. Many problems require more than one evaluation for a complete diagnosis and treatment. We recommend that you schedule your follow up appointment as recommended to ensure complete treatment of you illness or injury. If you are unable to obtain follow up care and continue to have a problem, or if your condition worsens, we recommend that you return to the ED. 2. We are not able to safely determine your condition over the phone nor are we able to give sound medical advice over the phone. For these safety reasons, if you call for medical advice we will ask you to come to the ED for further evaluation. 3. If you have any questions regarding these discharge instructions please call the ED at [phone]. SAFETY INFORMATION: In the interest of safety, wellness, and injury prevention; we encourage you to wear your seat belt, if you smoke; quite smoking, and we encourage family to use a protective helmet for bicycling and other sporting events that present an increased risk for head injury. IF YOUR SYMPTOMS WORSEN OR NEW SYMPTOMS DEVELOP, OR YOU HAVE CONCERNS ABOUT YOUR CONDITION; OR IF YOUR CONDITION WORSENS WHILE YOU ARE WAITING FOR YOUR FOLLOW UP APPOINTMENT; EITHER CONTACT YOUR PRIMARY CARE DOCTOR, THE PHYSICIAN WHOSE NAME AND NUMBER YOU WERE GIVEN, OR RETURN TO THE ED IMMEDIATELY. Scripts Orphenadrine Citrate (ORPHENADRINE CITRATE) 100 Mg Tablet.er 1 TAB PO BID for muscle pain for 10 Days, #20 TAB 0 Refills Prov: SIMONE CERVANTES 12/03/21 Naproxen (NAPROXEN) 500 Mg Tablet.dr 1 TAB PO BID for pain for 10 Days, #20 TAB 0 Refills Prov: SIMONE CERVANTES 12/03/21 SIMONE CERVANTES December 03, 2021 21:44
[2021-12-03] MEDS ORDERED: ORPHENADRINE CITRATE 60 MG/2 ML VIAL. IM ONE (21:45)
[2021-12-03 22:27] VITALS: BP 155/78
== END 2021-12-03 22:20 | disposition home or self-care (01) ==
LOC: ER 19:18
DX: S20.224A Contusion of middle back wall of thorax, initial encounter (principal); S00.93XA Contusion of unspecified part of head, initial encounter; K21.9 Gastro-esophageal reflux disease without esophagitis; I10 Essential (primary) hypertension; Z88.0 Allergy status to penicillin; Z88.1 Allergy status to other antibiotic agents; W18.39XA Other fall on same level, initial encounter; Y93.01 Activity, walking, marching and hiking; Y92.89 Other specified places as the place of occurrence of the external cause; Y99.8 Other external cause status
CPT/HCPCS: 70450; 72125; 72128; 96372; 99284; J1885; J2360